=== PATIENT | male | born 1935 | race Caucasian/White ===

== ENCOUNTER 2017-07-14 15:19 | Emergency (ER) | payer MEDICARE, BC ==
[2017-07-14] MEDS ORDERED: CYCLOBENZAPRINE HCL 10 MG TABLET PO ONE (15:34)
[2017-07-14] MEDS ORDERED: MORPHINE SULFATE 10 MG/ML INJ IM ONE (15:35)
--- NOTE | 2017-07-14 15:41 | ER Document Report ---
ED General Pain - General Stated Complaint: RIGHT LEG PAIN Time Seen by Provider: 07/14/17 15:34 Mode of Arrival: Stretcher Information source: Patient TRAVEL OUTSIDE OF THE [place] IN LAST 30 DAYS: No - HPI Patient complains to provider of: right leg pain from low back to ankle Onset: Other - 2 weeks ago. Severity: Moderate Pain Level: 3 Context: New onset Associated symptoms: Muscle aches Exacerbated by: Standing, Movement, Walking Relieved by: Denies Similar symptoms previously: No Recently seen / treated by doctor: No Notes: Patient states that 2 weeks ago he started with right lower back pain that now goes down to his thigh and lower ankle area. These a few days ago he tripped and fell. And he states today he went to the door to receive a package when he turned around he missed stepped and fell. He states these are the only 2 falls he has had in the recent past. Patient states that 2 weeks ago when his back pain started he did not have any trauma to the area. He denies weakness in the leg he states it is difficult to move secondary to the pain. - Related Data Allergies/Adverse Reactions: No Known Allergies Allergy (Unverified 11/12/11 17:17) Past Medical History - General Information source: Patient, [facility] Records - Social History Smoking Status: Former Smoker Cigarette use (# per day): No Chew tobacco use (# tins/day): No Smoking Education Provided: No Frequency of alcohol use: None Drug Abuse: None Lives with: Spouse/Significant other - Has been since 1970 Family History: Reviewed & Not Pertinent Patient has suicidal ideation: No Patient has homicidal ideation: No - Past Medical History Cardiac Medical History: Reports: Hx Hypertension Pulmonary Medical History: Reports: Hx Asthma, Hx COPD Other: Oxygen dependent at home Neurological Medical History: Reports: None Endocrine Medical History: Reports: None Renal/ Medical History: Reports: None Malignancy Medical History: Reports Hx Lung Cancer - in Remission Musculoskeltal Medical History: Reports Hx Arthritis Skin Medical History: Reports None Psychiatric Medical History: Reports: None Traumatic Medical History: Reports: None - Immunizations Hx Pneumococcal Vaccination: 08/11/10 Review of Systems - Review of Systems Constitutional: No symptoms reported EENT: No symptoms reported Cardiovascular: No symptoms reported Respiratory: No symptoms reported Gastrointestinal: No symptoms reported Genitourinary: No symptoms reported Musculoskeletal: Muscle stiffness. denies: Leg swelling, Ankle swelling Skin: No symptoms reported Hematologic/Lymphatic: No symptoms reported Neurological/Psychological: No symptoms reported Physical Exam - Vital signs Vitals: Pulse Ox 92 07/14/17 15:35 - Notes Notes: PHYSICAL EXAMINATION: GENERAL: Well-appearing, well-nourished and in mild distress due to right back pain in the lower area HEAD: Atraumatic, normocephalic. EYES: Pupils equal round and reactive to light, extraocular movements intact, sclera anicteric, conjunctiva are normal. ENT: Nares patent, oropharynx clear without exudates. Moist mucous membranes. NECK: Normal range of motion, supple without lymphadenopathy LUNGS: Breath sounds clear to auscultation bilaterally and equal. No wheezes rales or rhonchi. HEART: Regular rate and rhythm ABDOMEN: Soft, nontender, nondistended abdomen. No guarding, no rebound. No masses appreciated. Musculoskeletal: Patient's right lower extremity is warm and pink. Sensation is intact. He does have positive right straight leg raise at 30. Patient does have +1 pitting edema to bilateral lower extremities. No cyanosis. NEUROLOGICAL: Cranial nerves grossly intact. Normal speech. Normal sensory, motor exams. PSYCH: Normal mood, normal affect. SKIN: Warm, Dry, normal turgor, no rashes or lesions noted. Course - Re-evaluation Re-evalutation: 07/14/17 17:51 Patient ambulatory without distress. Able to discharge. Will place patient on muscle relaxants and pain medication. - Vital Signs Vital signs: Temp Pulse Resp BP Pulse Ox 97.8 F 89 16 91/69 L 96 07/14/17 15:39 07/14/17 15:39 07/14/17 15:39 07/14/17 15:39 07/14/17 16:09 Discharge - Discharge Clinical Impression: Sciatica Condition: Stable Disposition: HOME, SELF-CARE Instructions: Sciatica ([facility]) Prescriptions: Hydrocodone/Acetaminophen [Vicodin 5-300 mg Tablet] 1 each PO Q6HP PRN #15 tablet PRN Reason: Cyclobenzaprine HCl [Flexeril 10 mg Tablet] 10 mg PO TIDP PRN #15 tab PRN Reason: Referrals: MINA FRANCO MD [Primary Care Provider] - Follow up in 3-5 days (To the emergency department immediately any concerns)
--- NOTE | 2017-07-14 16:28 | RADIOLOGY REPORT (SQ) ---
EXAM DESCRIPTION: HIP RIGHT AP/LATERAL COMPLETED DATE/TIME: 07/14/2017 4:07 pm REASON FOR STUDY: fall/pain COMPARISON: None. NUMBER OF VIEWS: Two views. TECHNIQUE: AP pelvis and additional frog-leg view of the right hip. LIMITATIONS: None. FINDINGS: MINERALIZATION: Normal. RIGHT HIP: No fracture or dislocation. No worrisome bone lesions. LEFT HIP: No fracture or dislocation. No worrisome bone lesions. PUBIS AND ISCHIUM: No fracture. PELVIS: No fracture. SACRUM: No fracture or dislocation. No worrisome bone lesions. LOWER LUMBAR SPINE: No fracture or dislocation. No worrisome bone lesions. No significant disc disea se. SOFT TISSUES: No findings. OTHER: No other significant finding. IMPRESSION: NEGATIVE STUDY OF THE RIGHT HIP. NO RADIOGRAPHIC EVIDENCE OF ACUTE INJURY. TECHNICAL DOCUMENTATION: JOB ID: [id number] [employer]- All Rights Reserved
[2017-07-14] MEDS ORDERED: HYDROCODONE/ACETAMINOPHEN 5-325 MG TABLET PO ONE (17:49)
[2017-07-14 18:14] VITALS: BP 127/95
== END 2017-07-14 18:30 | disposition home or self-care (01) ==
LOC: ER 15:19
DX: M54.30 Sciatica, unspecified side (principal); M79.604 Pain in right leg; Z87.891 Personal history of nicotine dependence; W10.9XXA Fall (on) (from) unspecified stairs and steps, initial encounter
CPT/HCPCS: 99283; 96372; 73502; A9270 ×2; J2270

== ENCOUNTER 2017-07-18 12:12 | Inpatient (IN) | payer MEDICARE, BC ==
[2017-07-18] MEDS ORDERED: NORMAL SALINE 1000 ML 500 ML IV PRN (12:36)
--- NOTE | 2017-07-18 12:43 | ER Document Report ---
ED Respiratory Problem - General Stated Complaint: DIFFICULTY BREATHING TRAVEL OUTSIDE OF THE [place] IN LAST 30 DAYS: No - HPI Notes: 81 years old male with a history of COPD, lung cancer, woke up this morning tried to get up felt dizzy and passed out. Then again when he tried he passed out again. Therefore he called EMS. EMS found him with a pulse oximeter of 80 % on 4 L. He is on oxygen at 4 L at home. Therefore he was put on BiPAP and brought him to the ED. On arrival he was alert and oriented 3. He said that he was having difficulty in breathing since this morning. Denied any chest pain. Confirm the episodes of syncope. Has no headache currently has no neck pain, denies any focal weakness numbness tingling sensation. - Related Data Allergies/Adverse Reactions: No Known Allergies Allergy (Unverified 11/12/11 17:17) Past Medical History - Social History Smoking Status: Former Smoker Family History: Reviewed & Not Pertinent - Past Medical History Cardiac Medical History: Reports: Hx Hypertension Pulmonary Medical History: Reports: Hx Asthma, Hx COPD Renal/ Medical History: Denies: Hx Peritoneal Dialysis Malignancy Medical History: Reports Hx Lung Cancer - in Remission Musculoskeltal Medical History: Reports Hx Arthritis - Immunizations Hx Pneumococcal Vaccination: 08/11/10 Review of Systems - Review of Systems Notes: REVIEW OF SYSTEMS: CONSTITUTIONAL : Denies fever, chills, or sweats. Denies recent illness. EENT: Denies eye, ear, throat, or mouth pain or symptoms. Denies nasal or sinus congestion or discharge. Denies throat, tongue, or mouth swelling or difficulty swallowing. CARDIOVASCULAR: Denies chest pain. Denies palpitations or racing or irregular heart beat. Denies ankle edema. RESPIRATORY: As per history of complaint. GASTROINTESTINAL: Denies abdominal pain or distention. Denies nausea, vomiting , or diarrhea. Denies blood in vomitus, stools, or per rectum. Denies black, tarry stools. Denies constipation. GENITOURINARY: Denies difficulty urinating, painful urination, burning, frequency, blood in urine, or discharge. MUSCULOSKELETAL: Denies back or neck pain or stiffness. Denies joint pain or swelling. SKIN: Denies rash, lesions or sores. HEMATOLOGIC : Denies easy bruising or bleeding. LYMPHATIC: Denies swollen, enlarged glands. NEUROLOGICAL: Denies confusion or altered mental status. Denies dizziness or lightheadedness. Denies headache. Denies weakness or paralysis or loss of use of either side. Denies problems with gait or speech. Denies sensory loss, numbness, or tingling. Denies seizures. PSYCHIATRIC: Denies anxiety or stress. Denies depression, suicidal ideation, or homicidal ideation. ALL OTHER SYSTEMS REVIEWED AND NEGATIVE. Dictation was performed using [employer] voice recognition software PHYSICAL EXAMINATION: GENERAL: In moderate to severe discomfort, no tenderness over the spinal processes noted, range of motion for flexion extension abduction and abduction within normal range. HEAD: Atraumatic, normocephalic. EYES: Pupils equal round and reactive to light, extraocular movements intact, sclera anicteric, conjunctiva are normal. ENT: Nares patent, oropharynx clear without exudates. Moist mucous membranes. NECK: Normal range of motion, supple without lymphadenopathy. No paraspinal muscular tenderness noted. No JVD LUNGS: Chest wall on the left side has surgical scar, bilaterally diffuse wheezing expiratory heard no rales. HEART: Regular rate and rhythm without murmurs ABDOMEN: Soft, nontender, nondistended abdomen. No guarding, no rebound. No masses appreciated. Musculoskeletal: Normal range of motion, no pitting or edema. No cyanosis. NEUROLOGICAL: Cranial nerves grossly intact. Normal speech, normal gait. Normal sensory, motor exams PSYCH: Normal mood, normal affect. SKIN: Warm, Dry, normal turgor, no rashes or lesions noted. Physical Exam - Vital signs Vitals: Pulse Ox 82 L 07/18/17 12:12 Course - Re-evaluation Re-evalutation: 07/18/17 16:41 Patient was reevaluated 1 time this case was discussed with . Currently he is being admitted by hospitalist. - Vital Signs Vital signs: Temp Pulse Resp BP Pulse Ox 20 104/86 H 99 07/18/17 14:01 07/18/17 14:01 07/18/17 14:01 - Laboratory Result Diagrams: 07/18/17 12:49 07/18/17 12:49 Laboratory results interpreted by me: 07/18/17 07/18/17 12:49 12:49 RBC 3.89 L Hgb 12.1 L Hct 35.8 L RDW 15.6 H Seg Neutrophils % 83.2 H Lymphocytes % 9.2 L Chloride 95 L Carbon Dioxide 32 H BUN 24 H Est GFR (Non-Af Amer) 56 L Glucose 118 H Direct Bilirubin 0.6 H Creatine Kinase 218 H - Diagnostic Test Radiology results interpreted by me: 07/18/17 16:03 Diagnostic report text EXAM DESCRIPTION: CHEST SINGLE VIEW COMPLETED DATE/TIME: 07/18/2017 1:28 pm REASON FOR STUDY: Shortness of breath COMPARISON: November 2011 EXAM PARAMETERS: NUMBER OF VIEWS: One view. TECHNIQUE: Single frontal radiographic view of the chest acquired. RADIATION DOSE: NA LIMITATIONS: None. FINDINGS: LUNGS AND PLEURA: Fairly extensive pleural and parenchymal changes are identified in the mid and lower left hemithorax which could represent a combination of pleural effusion and associated atelectasis/infiltrate. A component of these changes could be chronic in nature. Followup films are recommended to exclude an underlying process. Chronic appearing changes are identified on the right. The right lung is otherwise clear. I cannot exclude a component of obstructive lung disease. MEDIASTINUM AND HILAR STRUCTURES: No significant masses or adenopathy. HEART AND VASCULAR STRUCTURES: Cardiac silhouette is partially obscured due to adjacent densities. BONES: No acute findings. HARDWARE: None in the chest. OTHER: No other significant finding. IMPRESSION: Fairly extensive pleural and parenchymal changes in the mid and lower left hemithorax as noted above which could represent a combination of pleural effusion and associated atelectasis/ infiltrate. Followup films to complete clearing is recommended to exclude an underlying process. Other findings as noted above TECHNICAL DOCUMENTATION: JOB ID: [id number] [employer]- All Rights Reserved Dictated by: TODD PARRA MD - EKG Interpretation by Nh Rhythm: A.Fib - Atrial fibrillation at the rate of [address] elevation ST depression T-wave inversion noted. Critical Care Note - Critical Care Note Total time excluding time spent on procedures (mins): 60 Comments: Management of BiPAP, review of chest x-ray EKG. Discharge - Discharge Clinical Impression: COPD with exacerbation, Chronic lung disease Acute respiratory failure Qualifiers: Respiratory failure complication: hypoxia Qualified Code(s): J96.01 - Acute respiratory failure with hypoxia Condition: Poor Disposition: ADMITTED INPATIENT Admitting Provider: Hospitalist Unit Admitted: IMCU Referrals: MINA FRANCO MD [Primary Care Provider] - Follow up as needed
[2017-07-18 13:10] LABS: ABSOLUTE BASOPHILS # (AUTO) 0.1 10^3/uL (0.0-0.2); ABSOLUTE LYMPHOCYTES (AUTO) 0.9 10^3/uL (0.5-4.7); ABSOLUTE MONOCYTES (AUTO) 0.7 10^3/uL (0.1-1.4); ABSOLUTE NEUT (AUTO) 7.9 10^3/uL (1.7-8.2); BASOPHILS % (AUTO) 0.6 % (0-2); HEMATOCRIT 35.8 % (37.9-51.0); HEMOGLOBIN 12.1 g/dL (13.5-17.0); HGB HCT DIFFERENCE 0.5; LYMPHOCYTES % (AUTO) 9.2 % (13-45); MEAN CORPUSCULAR HEMOGLOBIN 31.2 pg (27.0-33.4); MEAN CORPUSCULAR HGB CONC 33.9 g/dL (32.0-36.0); MEAN CORPUSCULAR VOLUME 92 fl (80-97); RED BLOOD COUNT 3.89 10^6/uL (4.35-5.55); RED CELL DISTRIBUTION WIDTH 15.6 % (11.5-14.0); SEGMENTED NEUTROPHILS % (AUTO) 83.2 % (42-78); WHITE BLOOD COUNT 9.5 10^3/uL (4.0-10.5)
[2017-07-18] MEDS: MAGNESIUM SULFATE/D5W 1 GM/100 ML RTUPB IV SCH ×2 (13:15→14:30)
[2017-07-18] MEDS: IPRATROPIUM/ALBUTEROL 0.5-2.5 MG/3 ML AMPUL NEB SCH ×5 (13:18→20:09)
[2017-07-18 13:33] LABS: ALANINE AMINOTRANSFERASE 35 U/L (21-72); ALKALINE PHOSPHATASE 72 U/L (38-126); ANION GAP 11 (5-19); ASPARTATE AMINO TRANSFERASE 34 U/L (17-59); BILIRUBIN,DIRECT 0.6 mg/dL (0.0-0.4); BILIRUBIN,TOTAL 1.1 mg/dL (0.2-1.3); BLOOD UREA NITROGEN 24 mg/dL (7-20); CALCIUM 9.3 mg/dL (8.4-10.2); CARBON DIOXIDE 32 mmol/L (22-30); CHLORIDE 95 mmol/L (98-107); CREATINE KINASE 218 U/L (55-170); CREATININE RESULT 1.24 mg/dL (0.52-1.25); GLUCOSE 118 mg/dL (75-110); POTASSIUM 4.2 mmol/L (3.6-5.0); SODIUM 137.7 mmol/L (137-145); TOTAL PROTEIN 7.4 g/dL (6.3-8.2)
--- NOTE | 2017-07-18 13:42 | RADIOLOGY REPORT (SQ) ---
EXAM DESCRIPTION: CHEST SINGLE VIEW COMPLETED DATE/TIME: 07/18/2017 1:28 pm REASON FOR STUDY: Shortness of breath COMPARISON: November 2011 EXAM PARAMETERS: NUMBER OF VIEWS: One view. TECHNIQUE: Single frontal radiographic view of the chest acquired. RADIATION DOSE: NA LIMITATIONS: None. FINDINGS: LUNGS AND PLEURA: Fairly extensive pleural and parenchymal changes are identified in the m id and lower left hemithorax which could represent a combination of pleural effusion and associated a telectasis/infiltrate. A component of these changes could be chronic in nature. Followup films are recommended to exclude an underlying process. Chronic appearing changes are identified on the right. The right lung is otherwise clear. I cannot exclude a component of obstructive lung disease. MEDIASTINUM AND HILAR STRUCTURES: No significant masses or adenopathy. HEART AND VASCULAR STRUCTURES: Cardiac silhouette is partially obscured due to adjacent densities. BONES: No acute findings. HARDWARE: None in the chest. OTHER: No other significant finding. IMPRESSION: Fairly extensive pleural and parenchymal changes in the mid and lower left hemithorax as noted above which could represent a combination of pleural effusion and associated atelectasis/ infi ltrate. Followup films to complete clearing is recommended to exclude an underlying process. Other findings as noted above TECHNICAL DOCUMENTATION: JOB ID: [id number] [employer]- All Rights Reserved
[2017-07-18 13:43] LABS: CREATINE KINASE MB 2.85 ng/mL (<4.55); TROPONIN I 0.028 ng/mL
--- NOTE | 2017-07-18 16:39 | RADIOLOGY REPORT (SQ) ---
EXAM DESCRIPTION: CT HEAD WITHOUT COMPLETED DATE/TIME: 07/18/2017 4:23 pm REASON FOR STUDY: Syncope COMPARISON: None. TECHNIQUE: Axial images acquired through the brain without intravenous contrast. Images reviewed wi th bone, brain and subdural windows. Images stored on PACS. All CT scanners at this facility use dose modulation, iterative reconstruction, and/or weight based d osing when appropriate to reduce radiation dose to as low as reasonably achievable (ALARA). [facility]: Dose Right [facility]: CareDose [facility]: Dose Right [facility]: Teradose 4D [facility]: Smart foodpanda / hellofood RADIATION DOSE: mGy. LIMITATIONS: Study is limited somewhat due to motion artifact. FINDINGS: VENTRICLES: Prominent. CEREBRUM: No masses. No hemorrhage. No midline shift. Areas of low density in the white matter mos t likely due to chronic micro-vascular ischemic change. No evidence for acute infarction. CEREBELLUM: No masses. No hemorrhage. No alteration of density. No evidence for acute infarction. EXTRAAXIAL SPACES: Mild age-related involutional change. No fluid collections. No masses. ORBITS AND GLOBE: No intra- or extraconal masses. Normal contour of globe without masses. CALVARIUM: No fracture. PARANASAL SINUSES: No fluid or mucosal thickening. SOFT TISSUES: No mass or hematoma. OTHER: No other significant finding. IMPRESSION: MILD CHRONIC CHANGES OF ATROPHY AND MICROVASCULAR ISCHEMIA. NO ACUTE PROCESS. EVIDENCE OF ACUTE STROKE: NO. TECHNICAL DOCUMENTATION: JOB ID: [id number] Quality ID # [id number]: Final reports with documentation of one or more dose reduction techniques (e.g., Au tomated exposure control, adjustment of the mA and/or kV according to patient size, use of iterative reconstruction technique) 2010 [employer]- All Rights Reserved
[2017-07-18 16:44] LABS: ARTERIAL BLOOD BASE EXCESS 6.6 mmol/L; ARTERIAL BLOOD O2 SATURATION 99.9 % (94-98)
[2017-07-18] MEDS ORDERED: ZOLPIDEM TARTRATE 5 MG TABLET PO PRN (17:57)
[2017-07-18] MEDS ORDERED: ONDANSETRON HCL INJ/PF 4 MG/2 ML SDV IV PRN (17:57)
[2017-07-18] MEDS ORDERED: OXYCODONE-ACETAMINOPHEN 5-325 MG TABLET PO PRN (17:57)
[2017-07-18] MEDS ORDERED: MORPHINE SULFATE 10 MG/ML INJ IV STA (18:10)
[2017-07-18 18:21] LABS: APPEARANCE,URINE CLEAR; BILIRUBIN,URINE NEGATIVE (NEGATIVE); GLUCOSE, URINE NEGATIVE (NEGATIVE); KETONES,URINE NEGATIVE (NEGATIVE); LEUKOCYTE ESTERASE,URINE NEGATIVE (NEGATIVE); NITRITE,URINE NEGATIVE (NEGATIVE); PROTEIN,URINE NEGATIVE (NEGATIVE); URINE SPECIFIC GRAVITY 1.006; UROBILINOGEN,URINE NEGATIVE mg/dL (<2.0)
--- NOTE | 2017-07-18 18:36 | PDOC H&P ---
History of Present Illness Admission Date/PCP: 07/18/17 16:52 MINA FRANCO MD Patient complains of: Pased out 2 while at home today History of Present Illness: GEORGIE CLARK is a 81 year old maleArrived to ED via ambulance complaining that while at home he was found on the floor. He denies having any similar episode in the past. He is unaware what happened. Patient does complain of shortness of breath. He admits having a history of COPD and he uses 4 L of oxygen on a regular basis. Patient states that he was recently discharged from this facility when he was admitted because of back pain problems. He states that he does have a history of what appears to be atrial fibrillation. He is unable to tell if he is on any blood thinner. He denies history of heart attack or stroke. He quitted smoking 5 years ago. Patient denies fever, chills, cough, chest pain or leg swelling. Is my understanding that upen arrival to emergency room patient was saturating at 80% on 4 L of O2. Due to presentation our service was contacted and prompted to admit for further evaluation. Past Medical History Cardiac Medical History: Reports: Atrial Fibrillation, Hypertension Denies: Congestive Heart Failure, Coronary Artery Disease, Myocardial Infarction Pulmonary Medical History: Reports: Asthma, Chronic Obstructive Pulmonary Disease (COPD) EENT Medical History: Reports: None Neurological Medical History: Reports: None Endocrine Medical History: Reports: None Renal/ Medical History: Reports: None Malignancy Medical History: Reports: None, Lung Cancer - in Remission GI Medical History: Reports: None Musculoskeltal Medical History: Reports: Arthritis Skin Medical History: Reports: None Psychiatric Medical History: Reports: None Traumatic Medical History: Reports: None Hematology: Reports: None Infectious Medical History: Reports: None Social History Information Source: Patient Smoking Status: Former Smoker Frequency of Alcohol Use: None Hx Recreational Drug Use: No Drugs: None Hx Prescription Drug Abuse: No - Advance Directive Resuscitation Status: Do Not Resuscitate Family History Family History: Reviewed & Not Pertinent Parental Family History Reviewed: Yes Children Family History Reviewed: Yes Sibling(s) Family History Reviewed.: Yes Medication/Allergy Allergies/Adverse Reactions: No Known Allergies Allergy (Unverified 11/12/11 17:17) Review of Systems Constitutional: ABSENT: chills, fever(s), night sweats, weakness Eyes: ABSENT: visual disturbances Ears: ABSENT: hearing changes Nose, Mouth, and Throat: ABSENT: mouth pain, sore throat Cardiovascular: ABSENT: chest pain, edema Respiratory: PRESENT: dyspnea. ABSENT: cough Gastrointestinal: ABSENT: abdominal pain, nausea, vomiting Neurological: ABSENT: focal weakness, frequent falls Physical Exam Vital Signs: Temp Pulse Resp BP Pulse Ox 22 H 103/80 98 07/18/17 17:41 07/18/17 17:41 07/18/17 17:41 General appearance: PRESENT: mild distress, morbidly obese Head exam: PRESENT: atraumatic, normocephalic Eye exam: PRESENT: conjunctiva pink, EOMI, PERRLA Ear exam: PRESENT: normal external ear exam, TM's normal bilaterally Mouth exam: PRESENT: moist, neck supple Neck exam: PRESENT: full ROM. ABSENT: JVD, tenderness Respiratory exam: PRESENT: decreased breath sounds. ABSENT: chest wall tenderness Cardiovascular exam: PRESENT: irregular rhythm. ABSENT: diastolic murmur, systolic murmur Vascular exam: PRESENT: normal capillary refill GI/Abdominal exam: PRESENT: normal bowel sounds. ABSENT: guarding, soft, tenderness Extremities exam: ABSENT: tenderness Musculoskeletal exam: PRESENT: full ROM Neurological exam: PRESENT: alert, awake, oriented to person, oriented to place , oriented to time Psychiatric exam: PRESENT: appropriate affect, normal mood Skin exam: PRESENT: dry, normal color Results Impressions: Chest X-Ray 07/18/17 12:34 IMPRESSION: Fairly extensive pleural and parenchymal changes in the mid and lower left hemithorax as noted above which could represent a combination of pleural effusion and associated atelectasis/ infiltrate. Followup films to complete clearing is recommended to exclude an underlying process. Other findings as noted above Head CT 07/18/17 12:36 IMPRESSION: MILD CHRONIC CHANGES OF ATROPHY AND MICROVASCULAR ISCHEMIA. NO ACUTE PROCESS. EVIDENCE OF ACUTE STROKE: NO. Assessment & Plan - Diagnosis (1) Acute on chronic respiratory failure with hypoxia and hypercapnia Is this a current diagnosis for this admission?: Yes Plan: Differential includes congestive heart failure and pulmonary embolism. Uncertain if patient is on any anticoagulation. Scanned medication reconciliation list in [facility] does not show any anticoagulants. To order a stat CTA of chest to evaluate for pulmonary embolism. Was tempted to start patient on Eliquis but since hemoglobin slightly on the low side and part of the differential of syncope may be bleeding will hold off. To sign off tonight hospitalist. Also will order BNP and will treat with Lasix and morphine IV. Patient will be placed on BiPAP as needed (2) COPD with exacerbation Is this a current diagnosis for this admission?: Yes Plan: Will place on nebulizers and Pulmicort. (3) Atrial fibrillation Qualifiers: Atrial fibrillation type: permanent Qualified Code(s): I48.2 - Chronic atrial fibrillation Is this a current diagnosis for this admission?: Yes Plan: For now is stable that since will be getting nebulizer treatment there is the possibility that may call into rapid ventricular response. Anticipate to continue outpatient regimen however is not available at the time of dictation (4) Morbid obesity Is this a current diagnosis for this admission?: Yes Plan: Can contribute to worsening of COPD (5) Syncope Qualifiers: Syncope type: unspecified Qualified Code(s): R55 - Syncope and collapse (6) Syncope and collapse Is this a current diagnosis for this admission?: Yes Plan: May be precipitated by acute oxygen drop. Major concern is as of the nature of acute drop in. Patient will be admitted to telemetry unit, will monitor troponin and will evaluate for acute hypoxic episode
[2017-07-18] MEDS ORDERED: METHYLPREDNISOLONE INJ 40 MG/1 ML SDV IV ONE (19:00)
[2017-07-18] MEDS ORDERED: APIXABAN 5 MG TABLET PO ONE (19:00)
[2017-07-18] MEDS ORDERED: FUROSEMIDE INJ/PF 20 MG/2 ML SDV IV ONE (19:00)
[2017-07-18] MEDS ORDERED: DEXTROSE 5%-WATER 250 ML with NOREPINEPHRINE BITARTRATE 4 MG IV PRN ×2 (19:24)
[2017-07-18] MEDS ORDERED: NALOXONE HCL INJ/PF 0.4 MG/1 ML SDV IV ONE (19:26)
[2017-07-18] MEDS ORDERED: NORMAL SALINE 1000 ML 1,000 ML IV SCH (19:30)
[2017-07-18] MEDS ORDERED: NOREPINEPHRINE BITARTRATE INJ/PF 4 MG/4 ML SDV IV ONE (19:39)
[2017-07-18] MEDS: NORMAL SALINE 1000 ML 1,000 ML IV PRN ×2 (20:12→21:57)
[2017-07-18] MEDS ORDERED: HYDROCORTISONE SOD SUCCINATE INJ/PF 100 MG/2 ML SDV IV ONE (20:30)
--- NOTE | 2017-07-18 21:34 | EKG REPORT ---
SEVERITY:- ABNORMAL ECG - ATRIAL FIBRILLATION VENTRICULAR PREMATURE COMPLEX BORDERLINE IVCD WITH LAD LOW VOLTAGE IN FRONTAL LEADS NONSPECIFIC T ABNORMALITIES, LATERAL LEADS BORDERLINE PROLONGED QT INTERVAL : Confirmed by: Courtney Mullen 18-Jul-2017 21:34:05
--- NOTE | 2017-07-18 21:55 | RADIOLOGY REPORT (SQ) ---
EXAM DESCRIPTION: CTA CHEST COMPLETED DATE/TIME: 07/18/2017 9:41 pm REASON FOR STUDY: syncope/acute on chronic respiratory failure COMPARISON: Chest radiograph TECHNIQUE: CT scan of the chest performed using helical scanning technique with dynamic intravenous contrast injection. Images reviewed with lung, soft tissue and bone windows. Reconstructed coronal and sagittal MPR images reviewed. Additional 3 dimensional post-processing performed to develop Maximal Intensity Projection images (ID P). All images stored on PACS. All CT scanners at this facility use dose modulation, iterative reconstruction, and/or weight based d osing when appropriate to reduce radiation dose to as low as reasonably achievable (ALARA). [facility]: Dose Right [facility]: CareDose [facility]: Dose Right [facility]: Teradose 4D [facility]: 8digits CONTRAST TYPE AND DOSE: contrast/concentration: Isovue 370.00 mg/ml; Total Contrast Delivered: 82.0 ml; Total Saline Delivered: 110.1 ml Contrast bolus optimized for the pulmonary arteries. Not diagnostic for the aorta. RENAL FUNCTION: Creatinine 1.24 RADIATION DOSE: . LIMITATIONS: None. FINDINGS: LUNGS AND PLEURA: Diffuse interstitial changes through the lungs with lung Sabiha distribut ion. Extensive pleural calcification. Pleural-based density along the left chest wall. No pneumoth orax. AORTA AND GREAT VESSELS: No aneurysm. Contrast bolus not optimized for the aorta. HEART: No pericardial effusion. No significant coronary artery calcifications. PULMONARY ARTERIES: No emboli visualized in the main pulmonary arteries or the segmental branches. HILAR AND MEDIASTINAL STRUCTURES: No identified masses or abnormal nodes. HARDWARE: None in the chest. UPPER ABDOMEN: Gallstones. THYROID AND OTHER SOFT TISSUES: No masses. No adenopathy. BONES: No acute or significant finding. 3D MIPS: Confirm above findings. OTHER: No other significant finding. IMPRESSION: No pulmonary emboli. Asbestos exposure with extensive pleural calcification. Interstitial changes suggest interstitial pulmonary edema. Pleural-based density on the left may be associated with the underlying asbestosis. COMMENT: Quality ID # [id number]: Final reports with documentation of one or more dose reduction techniques (e.g., Automated exposure control, adjustment of the mA and/or kV according to patient size, use of iterative reconstruction technique) TECHNICAL DOCUMENTATION: JOB ID: [id number] [employer]- All Rights Reserved
[2017-07-19] MEDS: IPRATROPIUM/ALBUTEROL 0.5-2.5 MG/3 ML AMPUL NEB SCH ×4 (00:28→20:55)
[2017-07-19] MEDS: METHYLPREDNISOLONE INJ 40 MG/1 ML SDV IV SCH ×3 (02:52→18:08)
--- NOTE | 2017-07-19 08:01 | PDOC PROGRESS REPORT ---
Subjective Progress Note for:: 07/19/17 Subjective:: Patient refers that his breathing is better today. He admits having a history of asbestosis and has been seeing Dr. Adis JOSE All organ systems evaluated and negative except as in subjective All significant laboratories and diagnostics have been reviewed Reason For Visit: ACUTE ON CHRONIC RESPIRATORY FAILURE,AECOPD Physical Exam Vital Signs: Temp Pulse Resp BP Pulse Ox 97.5 F 82 21 H 119/90 H 98 07/19/17 05:56 07/19/17 01:00 07/19/17 02:24 07/19/17 02:24 07/19/17 02:24 Intake & Output 07/17/17 07/18/17 07/19/17 06:59 06:59 06:59 Output Total 775 Balance -775 Weight 105.6 kg General appearance: PRESENT: no acute distress, cooperative, morbidly obese Head exam: PRESENT: atraumatic, normocephalic Eye exam: PRESENT: EOMI, PERRLA Ear exam: PRESENT: normal external ear exam Mouth exam: PRESENT: moist Neck exam: PRESENT: full ROM. ABSENT: JVD, tenderness Respiratory exam: PRESENT: clear to auscultation susan Cardiovascular exam: PRESENT: irregular rhythm. ABSENT: diastolic murmur, systolic murmur Vascular exam: PRESENT: normal capillary refill GI/Abdominal exam: PRESENT: normal bowel sounds, soft. ABSENT: ascites, guarding, tenderness Extremities exam: ABSENT: joint swelling, pedal edema Musculoskeletal exam: PRESENT: ambulatory, full ROM Neurological exam: PRESENT: alert, oriented to person, oriented to place, oriented to time Skin exam: PRESENT: normal color Results Laboratory Results: 07/18/17 17:30 Urine Color YELLOW Urine Appearance CLEAR Urine pH 6.0 Ur Specific [place] 1.006 Urine Protein NEGATIVE Urine Glucose (UA) NEGATIVE Urine Ketones NEGATIVE Urine Blood NEGATIVE Urine Nitrite NEGATIVE Ur Leukocyte Esterase NEGATIVE Urine WBC (Auto) 1 Urine RBC (Auto) 1 07/18/17 07/18/17 07/18/17 19:20 19:20 19:20 Creatine Kinase 226 H Troponin I 0.019 NT-Pro-B Natriuret Pep 1130 H 07/19/17 07/19/17 01:25 01:25 Creatine Kinase 220 H Troponin I 0.013 NT-Pro-B Natriuret Pep Impressions: Chest/Abdomen CTA 07/18/17 00:00 IMPRESSION: No pulmonary emboli. Asbestos exposure with extensive pleural calcification. Interstitial changes suggest interstitial pulmonary edema. Pleural-based density on the left may be associated with the underlying asbestosis. Chest X-Ray 07/18/17 12:34 IMPRESSION: Fairly extensive pleural and parenchymal changes in the mid and lower left hemithorax as noted above which could represent a combination of pleural effusion and associated atelectasis/ infiltrate. Followup films to complete clearing is recommended to exclude an underlying process. Other findings as noted above Head CT 07/18/17 12:36 IMPRESSION: MILD CHRONIC CHANGES OF ATROPHY AND MICROVASCULAR ISCHEMIA. NO ACUTE PROCESS. EVIDENCE OF ACUTE STROKE: NO. Assessment & Plan - Diagnosis (1) Acute on chronic respiratory failure with hypoxia and hypercapnia Is this a current diagnosis for this admission?: Yes Plan: CTA of chest results noted. Patient made aware that because of his lung condition that is asbestosis he may have problems with lowoxygen COPD. Will continue BiPAP as needed (2) COPD with exacerbation Is this a current diagnosis for this admission?: Yes Plan: Continue Solu-Medrol IV, add Advair and continue duo nebs. Add Levaquin to his regimen (3) Atrial fibrillation Qualifiers: Atrial fibrillation type: permanent Qualified Code(s): I48.2 - Chronic atrial fibrillation Is this a current diagnosis for this admission?: Yes Plan: Stable and to reassume Eliquis as outpatient (4) Morbid obesity Is this a current diagnosis for this admission?: Yes Plan: Can contribute to worsening of COPD (5) Syncope and collapse Is this a current diagnosis for this admission?: Yes Plan: Likely due to sudden drop of oxygen. No evidence of heart attack (6) Pulmonary asbestosis Is this a current diagnosis for this admission?: Yes Plan: Contributing to presentation. Highly suspect that this patient also has an element of pulmonary hypertension. Will order echocardiogram (7) Hypotension Qualifiers: Hypotension type: unspecified hypotension type Qualified Code(s): I95.9 - Hypotension, unspecified Is this a current diagnosis for this admission?: Yes Plan: Suspect the patient does have pulmonary hypertension therefore being very fluid sensitive. When checking medication reconciliation list he is on Lasix as outpatient. Will reassume Lasix outpatient dose and will discontinue above and draped since stable - Time Time Spent with patient: 15-24 minutes Medications reviewed and adjusted accordingly: Yes Anticipated discharge: Home - Inpatient Certification Based on my medical assessment, after consideration of the patient's comorbidities, presenting symptoms, or acuity I expect that the services needed warrant INPATIENT care.: Yes I certify that my determination is in accordance with my understanding of Medicare's requirements for reasonable and necessary INPATIENT services [42 CFR 412.3e].: Yes Medical Necessity: Need Close Monitoring Due to Risk of Patient Decompensation
[2017-07-19 08:14] LABS: HEMATOCRIT 35.1 % (37.9-51.0); HEMOGLOBIN 11.7 g/dL (13.5-17.0); MEAN CORPUSCULAR HEMOGLOBIN 30.9 pg (27.0-33.4); MEAN CORPUSCULAR HGB CONC 33.2 g/dL (32.0-36.0); MEAN CORPUSCULAR VOLUME 93 fl (80-97); RED BLOOD COUNT 3.77 10^6/uL (4.35-5.55); RED CELL DISTRIBUTION WIDTH 15.7 % (11.5-14.0); WHITE BLOOD COUNT 9.7 10^3/uL (4.0-10.5)
[2017-07-19 08:31] LABS: ANION GAP 10 (5-19); BLOOD UREA NITROGEN 23 mg/dL (7-20); CALCIUM 8.7 mg/dL (8.4-10.2); CARBON DIOXIDE 28 mmol/L (22-30); CHLORIDE 101 mmol/L (98-107); CREATINE KINASE 205 U/L (55-170); CREATININE RESULT 1.02 mg/dL (0.52-1.25); GLUCOSE 140 mg/dL (75-110); MAGNESIUM 2.3 mg/dL (1.6-2.3); SODIUM 139.2 mmol/L (137-145)
[2017-07-19 08:53] LABS: BAND NEUTROPHILS % (MANUAL) 15 % (3-5); BASOPHILS % (MANUAL) 0 % (0-2); EOSINOPHILS % (MANUAL) 0 % (0-6); LYMPHOCYTES % (MANUAL) 2 % (13-45); TOTAL CELLS COUNTED 100
[2017-07-19 08:54] LABS: RBC MORPHOLOGY COMMENT NORMO-CYTIC/CHROMIC
[2017-07-19] MEDS: LEVOFLOXACIN 750 MG TABLET PO SCH (08:59)
[2017-07-19] MEDS: FUROSEMIDE 40 MG TABLET PO SCH (08:59)
[2017-07-19] MEDS: DOCUSATE SODIUM 100 MG CAPSULE PO SCH (09:01)
[2017-07-19] MEDS ORDERED: FLUTICASONE/SALMETEROL DISKUS 500-50 MCG/DOSE IH SCH (10:00)
[2017-07-19] MEDS: APIXABAN 5 MG TABLET PO SCH ×2 (10:44→18:12)
[2017-07-19] MEDS: LEFLUNOMIDE 20 MG TABLET PO SCH (10:46)
[2017-07-19] MEDS: NORMAL SALINE 1000 ML 1,000 ML IV PRN (12:42)
[2017-07-19] MEDS ORDERED: AMIODARONE HCL 200 MG TABLET PO ONE (17:30)
[2017-07-19] MEDS ORDERED: (PENDING PHARMACY ID) (Potassium Chloride [Klor-Con M10] 10 MEQ) PO SCH (18:00)
[2017-07-19] MEDS ORDERED: (PENDING PHARMACY ID) (Omega-3 Fatty Acids/Fish Oil [Fish Oil 1,000 Mg Capsule] 1 EACH) PO SCH (18:00)
[2017-07-19] MEDS: POTASSIUM CHLORIDE 10 MEQ TABLET.SA PO SCH (18:07)
[2017-07-19] MEDS: GUAIFENESIN 600 MG TABLET.SA PO SCH (18:07)
[2017-07-19] MEDS: OMEGA-3 ACID ETHYL ESTERS 1 GM CAPSULE PO SCH (18:08)
[2017-07-20] MEDS: METHYLPREDNISOLONE INJ 40 MG/1 ML SDV IV SCH ×3 (02:46→17:27)
[2017-07-20] MEDS: ALBUTEROL SULFATE 0.083% NEB 2.5 MG/3 ML AMPUL NEB PRN (02:53)
[2017-07-20] MEDS: MORPHINE SULFATE 10 MG/ML INJ IV PRN ×2 (03:36→21:10)
[2017-07-20] MEDS: NORMAL SALINE 1000 ML 1,000 ML IV PRN (03:37)
[2017-07-20] MEDS: LANSOPRAZOLE 15 MG TAB.RAP.DR PO SCH (05:39)
[2017-07-20] MEDS: IPRATROPIUM/ALBUTEROL 0.5-2.5 MG/3 ML AMPUL NEB SCH ×3 (07:57→20:58)
[2017-07-20] MEDS ORDERED: GLUCAGON,HUMAN RECOMB 1 MG INJ IM PRN (08:14)
[2017-07-20] MEDS ORDERED: INSULIN LISPRO 100 UNIT/ML 3 ML VIAL SUBCUT PRN (08:14)
[2017-07-20] MEDS ORDERED: DEXTROSE 50%-WATER 25 GM/50 ML DISP.SYRIN IV PRN ×2 (08:14)
[2017-07-20] MEDS ORDERED: DEXTROSE 40% GEL 15 GM TUBE PO PRN ×2 (08:14)
--- NOTE | 2017-07-20 08:14 | PDOC PROGRESS REPORT ---
Subjective Progress Note for:: 07/20/17 Subjective:: Complains of swelling of both of his hands. Breathing is better but still feels congested. Complains of constipation ROS All organ systems evaluated and negative except as in subjective All significant laboratories and diagnostics had been reviewed Reason For Visit: ACUTE ON CHRONIC RESPIRATORY FAILURE,AECOPD Physical Exam Vital Signs: Temp Pulse Resp BP Pulse Ox 97.1 F 95 20 110/86 H 94 07/20/17 04:03 07/20/17 04:03 07/20/17 06:00 07/20/17 04:03 07/20/17 04:03 Intake & Output 07/19/17 07/20/17 07/21/17 06:59 06:59 06:59 Intake Total 575 2398 Output Total 775 1025 Balance -200 1373 Weight 105.6 kg 111.5 kg General appearance: PRESENT: no acute distress, cooperative, morbidly obese Head exam: PRESENT: atraumatic, normocephalic Eye exam: PRESENT: EOMI, PERRLA Ear exam: PRESENT: normal external ear exam Mouth exam: PRESENT: moist, neck supple Neck exam: PRESENT: full ROM. ABSENT: JVD, tenderness Respiratory exam: PRESENT: crackles, decreased breath sounds Cardiovascular exam: PRESENT: irregular rhythm. ABSENT: diastolic murmur, systolic murmur Vascular exam: PRESENT: normal capillary refill GI/Abdominal exam: PRESENT: distended, soft, tenderness Extremities exam: PRESENT: full ROM, +1 edema Neurological exam: PRESENT: alert, awake, oriented to person, oriented to place , oriented to time, CN II-XII grossly intact Psychiatric exam: PRESENT: appropriate affect, normal mood Skin exam: PRESENT: normal color Results Laboratory Results: 07/19/17 08:00 07/19/17 08:00 07/19/17 07/19/17 08:00 08:00 WBC 9.7 RBC 3.77 L Hgb 11.7 L Hct 35.1 L MCV 93 MCH 30.9 MCHC 33.2 RDW 15.7 H Plt Count 162 Seg Neutrophils % Not Reportable Lymphocytes % Not Reportable Monocytes % Not Reportable Eosinophils % Not Reportable Basophils % Not Reportable Absolute Neutrophils Not Reportable Absolute Lymphocytes Not Reportable Absolute Monocytes Not Reportable Absolute Eosinophils Not Reportable Absolute Basophils Not Reportable Sodium 139.2 Potassium 4.0 Chloride 101 Carbon Dioxide 28 Anion Gap 10 BUN 23 H Creatinine 1.02 Est GFR ( Amer) > 60 Est GFR (Non-Af Amer) > 60 Glucose 140 H Calcium 8.7 Magnesium 2.3 07/18/17 07/18/17 07/18/17 19:20 19:20 19:20 Creatine Kinase 226 H Troponin I 0.019 NT-Pro-B Natriuret Pep 1130 H 07/19/17 07/19/17 07/19/17 01:25 01:25 08:00 Creatine Kinase 220 H 205 H Troponin I 0.013 NT-Pro-B Natriuret Pep 07/19/17 08:00 Creatine Kinase Troponin I 0.017 NT-Pro-B Natriuret Pep Impressions: Chest/Abdomen CTA 07/18/17 00:00 IMPRESSION: No pulmonary emboli. Asbestos exposure with extensive pleural calcification. Interstitial changes suggest interstitial pulmonary edema. Pleural-based density on the left may be associated with the underlying asbestosis. Chest X-Ray 07/18/17 12:34 IMPRESSION: Fairly extensive pleural and parenchymal changes in the mid and lower left hemithorax as noted above which could represent a combination of pleural effusion and associated atelectasis/ infiltrate. Followup films to complete clearing is recommended to exclude an underlying process. Other findings as noted above Head CT 07/18/17 12:36 IMPRESSION: MILD CHRONIC CHANGES OF ATROPHY AND MICROVASCULAR ISCHEMIA. NO ACUTE PROCESS. EVIDENCE OF ACUTE STROKE: NO. Assessment & Plan - Diagnosis (1) Acute on chronic respiratory failure with hypoxia and hypercapnia Is this a current diagnosis for this admission?: Yes Plan: CTA of chest results noted. Improving. Respiratory made aware Bipap is at night. (2) COPD with exacerbation Is this a current diagnosis for this admission?: Yes Plan: Add mucomyst and daliresp otherwise continue current treatment (3) Atrial fibrillation Qualifiers: Atrial fibrillation type: permanent Qualified Code(s): I48.2 - Chronic atrial fibrillation Is this a current diagnosis for this admission?: Yes Plan: Stable. Continue outpatient treatment. (4) Morbid obesity Is this a current diagnosis for this admission?: Yes Plan: Can contribute to worsening of COPD (5) Syncope and collapse Is this a current diagnosis for this admission?: Yes Plan: Likely due to sudden drop of oxygen. (6) Pulmonary asbestosis Is this a current diagnosis for this admission?: Yes Plan: Contributing to presentation. Highly suspect that this patient also has an element of pulmonary hypertension. Echocardiogram ordered (7) Hypotension Qualifiers: Hypotension type: unspecified hypotension type Qualified Code(s): I95.9 - Hypotension, unspecified Is this a current diagnosis for this admission?: Yes Plan: Resolved. Suspect the patient does have pulmonary hypertension therefore being very fluid sensitive. Discontinue maintenance IV fluids. Follow up swelling of hands. (8) Constipation Qualifiers: Constipation type: unspecified constipation type Qualified Code(s): K59.00 - Constipation, unspecified Is this a current diagnosis for this admission?: Yes Plan: Lactulose x 1 and add miralax to bowel regimen. (9) Anemia Qualifiers: Anemia type: unspecified type Qualified Code(s): D64.9 - Anemia, unspecified Is this a current diagnosis for this admission?: Yes Plan: Likley of chronic disease. To trend (10) Hyperglycemia Is this a current diagnosis for this admission?: Yes Plan: Probably steroid induced. Check A1C. Add sliding scale - Time Time Spent with patient: 15-24 minutes Medications reviewed and adjusted accordingly: Yes Anticipated discharge: Home Within: within 72 hours - Inpatient Certification Based on my medical assessment, after consideration of the patient's comorbidities, presenting symptoms, or acuity I expect that the services needed warrant INPATIENT care.: Yes I certify that my determination is in accordance with my understanding of Medicare's requirements for reasonable and necessary INPATIENT services [42 CFR 412.3e].: Yes Medical Necessity: Need Close Monitoring Due to Risk of Patient Decompensation, Need for Nebulizer Therapy and Monitoring of Response
[2017-07-20] MEDS: FUROSEMIDE 40 MG TABLET PO SCH (08:38)
[2017-07-20] MEDS ORDERED: ACETYLCYSTEINE 10% NEB 400 MG/4 ML VIAL NEB ONE (09:00)
[2017-07-20] MEDS ORDERED: LACTULOSE SYRUP 20 GM/30 ML UDCUP PO ONE (09:00)
[2017-07-20] MEDS ORDERED: (PENDING PHARMACY ID) (Calcium Carbonate/Vitamin D3 [Os-Cal 500-Vit D3 200 Caplet] 1 TAB) PO SCH (10:00)
[2017-07-20] MEDS ORDERED: (PENDING PHARMACY ID) (Multivit-Min/Iron Fum/Folic Ac [Multi-Vitamin-Minerals Tablet] 1 EA PO SCH (10:00)
[2017-07-20] MEDS: POLYETHYLENE GLYCOL 3350 POWDER 17 GM/1 PACKET PO SCH (10:45)
[2017-07-20] MEDS: CALCIUM CARBONATE 250 MG/VITAMIN D3 125 UNIT TABLET PO SCH (10:47)
[2017-07-20] MEDS: OMEGA-3 ACID ETHYL ESTERS 1 GM CAPSULE PO SCH ×2 (10:47→17:26)
[2017-07-20] MEDS: CHOLECALCIFEROL (D3) 1,000 UNIT TABLET PO SCH (10:47)
[2017-07-20] MEDS: LEVOFLOXACIN 750 MG TABLET PO SCH (10:48)
[2017-07-20] MEDS: GUAIFENESIN 600 MG TABLET.SA PO SCH ×2 (10:48→17:26)
[2017-07-20] MEDS: DOCUSATE SODIUM 100 MG CAPSULE PO SCH (10:49)
[2017-07-20] MEDS: AMIODARONE HCL 200 MG TABLET PO SCH (10:49)
[2017-07-20] MEDS: POTASSIUM CHLORIDE 10 MEQ TABLET.SA PO SCH ×2 (10:49→17:26)
[2017-07-20] MEDS: LEFLUNOMIDE 20 MG TABLET PO SCH (10:50)
[2017-07-20] MEDS: MULTIVIT-STRESS FORMULA/ZINC TABLET PO SCH (10:50)
[2017-07-20] MEDS: ROFLUMILAST 500 MCG TABLET PO SCH (10:50)
[2017-07-20] MEDS: APIXABAN 5 MG TABLET PO SCH ×2 (10:51→17:27)
[2017-07-20] MEDS: TIOTROPIUM BROMIDE DPI 5 CAP/KIT (18 MCG/CAP) IH SCH (10:55)
[2017-07-20] MEDS: BUDESONIDE/FORMOTEROL 160-4.5 MCG 60 PUFF/6 GM MDI IH SCH (10:56)
[2017-07-20] MEDS: TAMSULOSIN HCL 0.4 MG CAP.SR.24H PO SCH (10:58)
[2017-07-20] MEDS: ACETYLCYSTEINE 10% NEB 400 MG/4 ML VIAL NEB SCH ×2 (13:53→20:58)
[2017-07-21] MEDS: ACETYLCYSTEINE 10% NEB 400 MG/4 ML VIAL NEB SCH ×4 (02:23→20:36)
[2017-07-21] MEDS: ALBUTEROL SULFATE 0.083% NEB 2.5 MG/3 ML AMPUL NEB PRN (02:23)
[2017-07-21] MEDS: METHYLPREDNISOLONE INJ 40 MG/1 ML SDV IV SCH ×3 (02:30→21:21)
[2017-07-21 05:32] LABS: HEMATOCRIT 34.5 % (37.9-51.0); HEMOGLOBIN 11.5 g/dL (13.5-17.0); MEAN CORPUSCULAR HEMOGLOBIN 31.2 pg (27.0-33.4); MEAN CORPUSCULAR HGB CONC 33.4 g/dL (32.0-36.0); MEAN CORPUSCULAR VOLUME 93 fl (80-97); WHITE BLOOD COUNT 10.6 10^3/uL (4.0-10.5)
[2017-07-21 05:47] LABS: ALANINE AMINOTRANSFERASE 42 U/L (21-72); ALBUMIN 3.3 g/dL (3.5-5.0); ALKALINE PHOSPHATASE 61 U/L (38-126); ANION GAP 5 (5-19); ASPARTATE AMINO TRANSFERASE 28 U/L (17-59); BILIRUBIN,DIRECT 0.5 mg/dL (0.0-0.4); BILIRUBIN,TOTAL 0.6 mg/dL (0.2-1.3); BLOOD UREA NITROGEN 29 mg/dL (7-20); CALCIUM 8.6 mg/dL (8.4-10.2); CARBON DIOXIDE 31 mmol/L (22-30); CHLORIDE 105 mmol/L (98-107); CREATININE RESULT 1.05 mg/dL (0.52-1.25); GLUCOSE 119 mg/dL (75-110); MAGNESIUM 2.3 mg/dL (1.6-2.3); POTASSIUM 4.2 mmol/L (3.6-5.0); SODIUM 140.9 mmol/L (137-145); TOTAL PROTEIN 5.9 g/dL (6.3-8.2)
[2017-07-21 06:05] LABS: BAND NEUTROPHILS % (MANUAL) 1 % (3-5); BASOPHILS % (MANUAL) 0 % (0-2); EOSINOPHILS % (MANUAL) 0 % (0-6); LYMPHOCYTES % (MANUAL) 3 % (13-45); TOTAL CELLS COUNTED 100
[2017-07-21] MEDS: LANSOPRAZOLE 15 MG TAB.RAP.DR PO SCH (06:05)
[2017-07-21 06:06] LABS: ANISOCYTOSIS 1+; POLYCHROMASIA SLIGHT
[2017-07-21 06:07] LABS: OVALOCYTES SLIGHT
[2017-07-21] MEDS: IPRATROPIUM/ALBUTEROL 0.5-2.5 MG/3 ML AMPUL NEB SCH ×3 (08:27→20:37)
[2017-07-21] MEDS: FUROSEMIDE 40 MG TABLET PO SCH (08:38)
[2017-07-21] MEDS: CALCIUM CARBONATE 250 MG/VITAMIN D3 125 UNIT TABLET PO SCH (09:41)
[2017-07-21] MEDS: LEFLUNOMIDE 20 MG TABLET PO SCH (09:41)
[2017-07-21] MEDS: MULTIVIT-STRESS FORMULA/ZINC TABLET PO SCH (09:41)
[2017-07-21] MEDS: OMEGA-3 ACID ETHYL ESTERS 1 GM CAPSULE PO SCH ×2 (09:41→17:33)
[2017-07-21] MEDS: ROFLUMILAST 500 MCG TABLET PO SCH (09:41)
[2017-07-21] MEDS: POLYETHYLENE GLYCOL 3350 POWDER 17 GM/1 PACKET PO SCH (09:41)
[2017-07-21] MEDS: POTASSIUM CHLORIDE 10 MEQ TABLET.SA PO SCH ×2 (09:41→17:33)
[2017-07-21] MEDS: LEVOFLOXACIN 750 MG TABLET PO SCH (09:41)
[2017-07-21] MEDS: CHOLECALCIFEROL (D3) 1,000 UNIT TABLET PO SCH (09:42)
[2017-07-21] MEDS: GUAIFENESIN 600 MG TABLET.SA PO SCH ×2 (09:42→21:22)
[2017-07-21] MEDS: DOCUSATE SODIUM 100 MG CAPSULE PO SCH (09:42)
[2017-07-21] MEDS: AMIODARONE HCL 200 MG TABLET PO SCH (09:42)
[2017-07-21] MEDS: TAMSULOSIN HCL 0.4 MG CAP.SR.24H PO SCH (09:42)
[2017-07-21] MEDS: BUDESONIDE/FORMOTEROL 160-4.5 MCG 60 PUFF/6 GM MDI IH SCH (09:43)
[2017-07-21] MEDS: MORPHINE SULFATE 10 MG/ML INJ IV PRN (09:43)
[2017-07-21] MEDS: APIXABAN 5 MG TABLET PO SCH ×2 (09:44→17:34)
[2017-07-21] MEDS: TIOTROPIUM BROMIDE DPI 5 CAP/KIT (18 MCG/CAP) IH SCH (09:44)
[2017-07-21] MEDS ORDERED: MEROPENEM 500 MG VIAL IV SCH (11:30)
[2017-07-21] MEDS ORDERED: DILTIAZEM HCL/D5W 125 MG/125 ML RTUINJ IV ONE (12:19)
[2017-07-21] MEDS ORDERED: DIGOXIN INJ 0.5 MG/2 ML AMPULE IV ONE (12:30)
[2017-07-21 12:31] LABS: PATH REVIEW PATHOLOGIST REVIEWED
--- NOTE | 2017-07-21 12:40 | PDOC PROGRESS REPORT ---
Subjective Progress Note for:: 07/21/17 Subjective:: Patient relates that constipation is resolved. Also swelling of his hands is improved. He has been having productive cough and showed a sample of the phlegm. He is also concerned that he is still having to use 6 L of oxygen by nasal cannula. ROS All organ systems evaluated and negative except as in subjective All significant laboratories and diagnostics had been reviewed Reason For Visit: ACUTE ON CHRONIC RESPIRATORY FAILURE,AECOPD Physical Exam Vital Signs: Temp Pulse Resp BP Pulse Ox 96.6 F L 96 17 97/67 L 96 07/21/17 04:00 07/21/17 04:00 07/21/17 04:21 07/21/17 04:21 07/21/17 04:18 Intake & Output 07/20/17 07/21/17 07/22/17 06:59 06:59 06:59 Intake Total 2398 880 Output Total 1025 850 Balance 1373 30 Weight 111.5 kg 108.7 kg General appearance: PRESENT: no acute distress, cooperative, obese Head exam: PRESENT: atraumatic, normocephalic Eye exam: PRESENT: EOMI, PERRLA Ear exam: PRESENT: normal external ear exam Mouth exam: PRESENT: moist, neck supple Neck exam: PRESENT: full ROM. ABSENT: JVD, tenderness Respiratory exam: PRESENT: crackles - Improvement of movement of air when compared to previous assessment. Cardiovascular exam: PRESENT: irregular rhythm. ABSENT: diastolic murmur, systolic murmur Vascular exam: PRESENT: normal capillary refill GI/Abdominal exam: PRESENT: normal bowel sounds, soft. ABSENT: guarding, tenderness Extremities exam: ABSENT: joint swelling, pedal edema, tenderness Musculoskeletal exam: PRESENT: full ROM Neurological exam: PRESENT: alert, oriented to person, oriented to place, oriented to time Psychiatric exam: PRESENT: normal mood Skin exam: PRESENT: normal color Results Laboratory Results: 07/21/17 05:18 07/21/17 05:18 07/21/17 07/21/17 05:18 05:18 WBC 10.6 H RBC 3.70 L Hgb 11.5 L Hct 34.5 L MCV 93 MCH 31.2 MCHC 33.4 RDW 16.0 H Plt Count 189 Seg Neutrophils % Not Reportable Lymphocytes % Not Reportable Monocytes % Not Reportable Eosinophils % Not Reportable Basophils % Not Reportable Absolute Neutrophils Not Reportable Absolute Lymphocytes Not Reportable Absolute Monocytes Not Reportable Absolute Eosinophils Not Reportable Absolute Basophils Not Reportable Sodium 140.9 Potassium 4.2 Chloride 105 Carbon Dioxide 31 H Anion Gap 5 BUN 29 H Creatinine 1.05 Est GFR ( Amer) > 60 Est GFR (Non-Af Amer) > 60 Glucose 119 H Calcium 8.6 Magnesium 2.3 Total Bilirubin 0.6 AST 28 ALT 42 Alkaline Phosphatase 61 Total Protein 5.9 L Albumin 3.3 L 07/18/17 07/18/17 07/18/17 19:20 19:20 19:20 Creatine Kinase 226 H Troponin I 0.019 NT-Pro-B Natriuret Pep 1130 H 07/19/17 07/19/17 07/19/17 01:25 01:25 08:00 Creatine Kinase 220 H 205 H Troponin I 0.013 NT-Pro-B Natriuret Pep 07/19/17 08:00 Creatine Kinase Troponin I 0.017 NT-Pro-B Natriuret Pep Impressions: Chest/Abdomen CTA 07/18/17 00:00 IMPRESSION: No pulmonary emboli. Asbestos exposure with extensive pleural calcification. Interstitial changes suggest interstitial pulmonary edema. Pleural-based density on the left may be associated with the underlying asbestosis. Chest X-Ray 07/18/17 12:34 IMPRESSION: Fairly extensive pleural and parenchymal changes in the mid and lower left hemithorax as noted above which could represent a combination of pleural effusion and associated atelectasis/ infiltrate. Followup films to complete clearing is recommended to exclude an underlying process. Other findings as noted above Head CT 07/18/17 12:36 IMPRESSION: MILD CHRONIC CHANGES OF ATROPHY AND MICROVASCULAR ISCHEMIA. NO ACUTE PROCESS. EVIDENCE OF ACUTE STROKE: NO. Assessment & Plan - Diagnosis (1) Acute on chronic respiratory failure with hypoxia and hypercapnia Is this a current diagnosis for this admission?: Yes Plan: CTA of chest results noted. Clinically improved. Patient reassured that he may need higher oxygen requirement on discharge. (2) COPD with exacerbation Is this a current diagnosis for this admission?: Yes Plan: Decrease IV steroid, discontinue Levaquin and placed on meropenem. Otherwise continue current regimen she is responding (3) Atrial fibrillation Qualifiers: Atrial fibrillation type: permanent Qualified Code(s): I48.2 - Chronic atrial fibrillation Is this a current diagnosis for this admission?: Yes Plan: Stable. Continue outpatient treatment. Having episodes of rapid ventricular response. Order one time dose of digoxin IV and consult cardiology. Patient has problems with hypotension. (4) Morbid obesity Is this a current diagnosis for this admission?: Yes Plan: Can contribute to worsening of COPD (5) Syncope and collapse Is this a current diagnosis for this admission?: Yes Plan: Likely due to sudden drop of oxygen. (6) Pulmonary asbestosis Is this a current diagnosis for this admission?: Yes Plan: Contributing to presentation. Highly suspect that this patient also has an element of pulmonary hypertension. Echocardiogram result pending. (7) Hypotension Qualifiers: Hypotension type: unspecified hypotension type Qualified Code(s): I95.9 - Hypotension, unspecified Is this a current diagnosis for this admission?: Yes Plan: Resolved. Suspect the patient does have pulmonary hypertension therefore being very fluid sensitive. Off IV fluids with improvement of leg swelling. Echocardiogram result is pending (8) Constipation Qualifiers: Constipation type: unspecified constipation type Qualified Code(s): K59.00 - Constipation, unspecified Is this a current diagnosis for this admission?: Yes Plan: Continue current bowel regimen (9) Anemia Qualifiers: Anemia type: unspecified type Qualified Code(s): D64.9 - Anemia, unspecified Is this a current diagnosis for this admission?: Yes Plan: Likley of chronic disease. To trend (10) Hyperglycemia Is this a current diagnosis for this admission?: Yes Plan: Probably steroid induced. Check A1C. Add sliding scale (11) COPD with acute bronchitis Is this a current diagnosis for this admission?: Yes Plan: We will continue with current treatment for COPD exacerbation. Will discontinue Levaquin p.o. and change to meropenem since concerned about Pseudomonas that may be resistant to Levaquin - Time Time Spent with patient: 15-24 minutes Medications reviewed and adjusted accordingly: Yes Anticipated discharge: Home Within: within 72 hours - Inpatient Certification Based on my medical assessment, after consideration of the patient's comorbidities, presenting symptoms, or acuity I expect that the services needed warrant INPATIENT care.: Yes I certify that my determination is in accordance with my understanding of Medicare's requirements for reasonable and necessary INPATIENT services [42 CFR 412.3e].: Yes Medical Necessity: Need For Continuous Telemetry Monitoring, Need for Nebulizer Therapy and Monitoring of Response, Need for IV Antibiotics
[2017-07-21] MEDS: DILTIAZEM HCL/D5W 125 MG/125 ML RTUINJ IV PRN ×2 (12:46→22:01)
[2017-07-21] MEDS ORDERED: ONDANSETRON HCL INJ/PF 4 MG/2 ML SDV IV PRN (13:00)
[2017-07-21] MEDS: MEROPENEM 1 GM in NORMAL SALINE 50 ML IV SCH ×2 (14:20→21:22)
[2017-07-21 14:44] LABS: FREE T3 1.23 pg/mL (2.77-5.27)
[2017-07-21 14:57] LABS: THYROID STIMULATING HORMONE 13.7 uIU/mL (0.47-4.68)
--- NOTE | 2017-07-21 15:43 | XCELERA REPORT ---
[address] [address] Transthoracic Echocardiogram Report Name: GEORGIE CLARK Age: 81 yrs Gender: Male : 1935 Patient Status: Inpatient Patient Location: ICU^2^A Study Date: 07/21/2017 11:56 AM Procedure: A two-dimensional transthoracic echocardiogram with color flow and Doppler was performed. Study Quality: Technically suboptimal. Poor endocardial defenition and poor doppler interogation. Reason For Study: PULMONARY HYPERTENSION Ordering Physician: TARIK RAMOS Performed By: Zohra Lake Interpretation Summary The left ventricle is moderately dilated. There is normal left ventricular wall thickness. LV EF is 35% Left ventricular systolic function is moderate to severely reduced. There is moderate to severe global hypokinesis of the left ventricle. The right ventricle is not well visualized secondary to technical limitations The right atrium is normal. The left and right artia are moderately dilated There is no evidence of mitral valve prolapse. There is no mitral valve stenosis. There is no mitral regurgitation noted. There is no aortic valvular vegetation. There is no aortic valve stenosis There is no LVOT obstruction. No aortic regurgitation is present. There is no tricuspid stenosis. Perhaps mild TR.Mild pulmonary hypertension.RVSP is 30 to 44 mm of Hg , with RA mean of 10 to 15. There is mild pulmonary hypertension by echo There is no pericardial effusion. MMode/2D Measurements & Calculations RVDd: 3.6 cm LVIDd: 6.1 cm FS: 14.2 % Ao root diam: 3.7 cm IVSd: 0.96 cm LVIDs: 5.3 cm EDV(Teich): 190.1 ml Ao root area: 10.7 cm2 LVPWd: 1.0 cm ESV(Teich): 133.8 ml EF(Teich): 29.6 % Doppler Measurements & Calculations MV E max katelyn: MV dec slope: Ao V2 max: LV V1 max P.0 cm/sec 557.8 cm/sec2 118.5 cm/sec 1.8 mmHg MV A max katelyn: MV dec time: Ao max PG: LV V1 max: 29.4 cm/sec 0.12 sec 5.6 mmHg 66.3 cm/sec MV E/A: 2.2 PA V2 max: TR max katelyn: 67.6 cm/sec 262.7 cm/sec PA max PG: TR max P.7 mmHg 1.8 mmHg Left Ventricle The left ventricle is moderately dilated. There is normal left ventricular wall thickness. LV EF is 35%. Left ventricular systolic function is moderate to severely reduced. LV diastolic function could not be adequately assessed due to atrial fibrilation. There is moderate to severe global hypokinesis of the left ventricle. There is no thrombus. Right Ventricle The right ventricle is not well visualized secondary to technical limitations. Atria The right atrium is normal. The left and right artia are moderately dilated. Mitral Valve There is no evidence of mitral valve prolapse. There is no mitral valve stenosis. There is no mitral regurgitation noted. Aortic Valve There is no aortic valvular vegetation. There is no aortic valve stenosis. There is no LVOT obstruction. No aortic regurgitation is present. Tricuspid Valve There is no tricuspid stenosis. Perhaps mild TR.Mild pulmonary hypertension.RVSP is 30 to 44 mm of Hg , with RA mean of 10 to 15. There is mild pulmonary hypertension by echo. Pulmonic Valve There is no pulmonic valvular stenosis. There is no pulmonic valvular regurgitation. Great Vessels The aortic root is not well visualized but is probably normal size. Effusions There is no pericardial effusion. : TARIK RAMOS > Jalyn Oliver
[2017-07-22] MEDS: ALBUTEROL SULFATE 0.083% NEB 2.5 MG/3 ML AMPUL NEB PRN (02:10)
[2017-07-22] MEDS: ACETYLCYSTEINE 10% NEB 400 MG/4 ML VIAL NEB SCH ×4 (02:10→20:22)
[2017-07-22] MEDS: LANSOPRAZOLE 15 MG TAB.RAP.DR PO SCH (05:07)
[2017-07-22] MEDS: MEROPENEM 1 GM in NORMAL SALINE 50 ML IV SCH (05:08)
[2017-07-22] MEDS: IPRATROPIUM/ALBUTEROL 0.5-2.5 MG/3 ML AMPUL NEB SCH (08:20)
[2017-07-22] MEDS: FUROSEMIDE 40 MG TABLET PO SCH (08:34)
[2017-07-22] MEDS: APIXABAN 5 MG TABLET PO SCH ×2 (10:05→17:36)
[2017-07-22] MEDS: CALCIUM CARBONATE 250 MG/VITAMIN D3 125 UNIT TABLET PO SCH (10:05)
[2017-07-22] MEDS: POLYETHYLENE GLYCOL 3350 POWDER 17 GM/1 PACKET PO SCH (10:06)
[2017-07-22] MEDS: METHYLPREDNISOLONE INJ 40 MG/1 ML SDV IV SCH (10:06)
[2017-07-22] MEDS: POTASSIUM CHLORIDE 10 MEQ TABLET.SA PO SCH ×2 (10:06→17:36)
[2017-07-22] MEDS: TAMSULOSIN HCL 0.4 MG CAP.SR.24H PO SCH (10:06)
[2017-07-22] MEDS: LEFLUNOMIDE 20 MG TABLET PO SCH (10:06)
[2017-07-22] MEDS: MULTIVIT-STRESS FORMULA/ZINC TABLET PO SCH (10:06)
[2017-07-22] MEDS: DOCUSATE SODIUM 100 MG CAPSULE PO SCH (10:06)
[2017-07-22] MEDS: GUAIFENESIN 600 MG TABLET.SA PO SCH (10:06)
[2017-07-22] MEDS: DILTIAZEM HCL/D5W 125 MG/125 ML RTUINJ IV PRN ×2 (10:06→21:35)
[2017-07-22] MEDS: OMEGA-3 ACID ETHYL ESTERS 1 GM CAPSULE PO SCH ×2 (10:07→17:36)
[2017-07-22] MEDS: TIOTROPIUM BROMIDE DPI 5 CAP/KIT (18 MCG/CAP) IH SCH (10:07)
[2017-07-22] MEDS: CHOLECALCIFEROL (D3) 1,000 UNIT TABLET PO SCH (10:10)
[2017-07-22] MEDS ORDERED: PROMETHAZINE HCL INJ 25 MG/1 ML VIAL IV PRN (11:48)
[2017-07-22] MEDS: ROFLUMILAST 500 MCG TABLET PO SCH (12:49)
[2017-07-22] MEDS: LEVALBUTEROL HCL NEB 1.25 MG/3 ML AMPUL NEB SCH ×2 (13:52→20:22)
[2017-07-23] MEDS ORDERED: LEVOTHYROXINE SODIUM 0.025 MG TABLET PO ONE (00:15)
[2017-07-23] MEDS: ACETAMINOPHEN 325 MG TABLET PO PRN ×2 (01:01→10:39)
[2017-07-23] MEDS: LEVALBUTEROL HCL NEB 1.25 MG/3 ML AMPUL NEB SCH ×3 (01:41→14:43)
[2017-07-23] MEDS: ACETYLCYSTEINE 10% NEB 400 MG/4 ML VIAL NEB SCH ×3 (01:41→14:43)
[2017-07-23] MEDS: LANSOPRAZOLE 15 MG TAB.RAP.DR PO SCH (05:11)
[2017-07-23] MEDS ORDERED: LEVOTHYROXINE SODIUM 0.025 MG TABLET PO SCH (06:00)
[2017-07-23] MEDS ORDERED: PREDNISONE 20 MG TABLET PO SCH (10:00)
[2017-07-23] MEDS ORDERED: METOPROLOL SUCCINATE 25 MG TAB.SR.24H PO SCH (10:00)
[2017-07-23] MEDS ORDERED: FUROSEMIDE INJ/PF 40 MG/4 ML SDV IV SCH (10:00)
[2017-07-23] MEDS ORDERED: METOPROLOL TARTRATE PF/INJ 5 MG/5 ML SDV IV PRN (10:04)
[2017-07-23] MEDS: POLYETHYLENE GLYCOL 3350 POWDER 17 GM/1 PACKET PO SCH (10:39)
[2017-07-23] MEDS: CHOLECALCIFEROL (D3) 1,000 UNIT TABLET PO SCH (10:40)
[2017-07-23] MEDS: CALCIUM CARBONATE 250 MG/VITAMIN D3 125 UNIT TABLET PO SCH (10:40)
[2017-07-23] MEDS: OMEGA-3 ACID ETHYL ESTERS 1 GM CAPSULE PO SCH ×2 (10:40→17:30)
[2017-07-23] MEDS: TAMSULOSIN HCL 0.4 MG CAP.SR.24H PO SCH (10:40)
[2017-07-23] MEDS: POTASSIUM CHLORIDE 10 MEQ TABLET.SA PO SCH ×2 (10:40→17:30)
[2017-07-23] MEDS: DOCUSATE SODIUM 100 MG CAPSULE PO SCH (10:41)
[2017-07-23] MEDS: MULTIVIT-STRESS FORMULA/ZINC TABLET PO SCH (10:41)
[2017-07-23] MEDS: TIOTROPIUM BROMIDE DPI 5 CAP/KIT (18 MCG/CAP) IH SCH (10:42)
[2017-07-23] MEDS: APIXABAN 5 MG TABLET PO SCH ×2 (10:43→17:31)
[2017-07-23] MEDS: LEFLUNOMIDE 20 MG TABLET PO SCH (10:43)
[2017-07-23] MEDS: ROFLUMILAST 500 MCG TABLET PO SCH (10:43)
--- NOTE | 2017-07-23 13:32 | CONSULTATION REPORT E ---
Consultation Report NAME: GEORGIE CLARK : 1935 AGE: 81Y DATE: 07/22/2017 ROOM: 331 A TO: KATERIN MADRID M.D. FROM: Requesting Physician The patient was briefly seen on 07/21/2017, had formal consult on 07/22/2017. The patient was seen at 8:30 a.m. A total of 50 minutes spent on this patient, reviewing his medications and getting a history from the patient and the patient's . HISTORY OF PRESENT ILLNESS: The patient is a 81-year-old male with known history of hypertension, history of asbestosis, history of lung cancer, status post lobectomy with no recurrence, history of COPD, history of sleep apnea, using CPAP, who states that since the past one week has been having a cough with PND, orthopnea, and leg edema. The cough is brownish-dark in color, but there is no hemoptysis. There is no pleuritic chest pain. On the day of admission, on 07/18, the patient stood up and became syncopal, about a few minutes. Per family, he had no chest pain or discomfort, and there was no palpitation. He was not having any cough causing syncope. Subsequently he again tried to stand up and again had another syncopal episode. His O2 sats were also low, as per the patient, and the patient's came to the emergency room. The patient did have wheezing, orthopnea, and PND. He has a history of paroxysmal atrial fibrillation, but the patient denies any rapid beating of the heart or irregular, rapid heart rate. The patient has never had syncope in the past. He has no history of chest pain. The patient denies any history of fever. He has been having intermittent wheezing also. PAST MEDICAL HISTORY: Positive history of paroxysmal atrial fibrillation. He has a history of hypertension. He has no prior history of congestive heart failure, but the patient's LV ejection fraction by recent echo was 35%. He does have mild pulmonary hypertension with the right ventricular systolic pressure highest being 44 mmHg. He has no history of diabetes mellitus or thyroid disease. He has a history of asbestos exposure and asbestosis. He also has a history of COPD, since he is a former smoker. He also has a history of asthma. He also has a history of sleep apnea and uses CPAP. He has a history of lung cancer that is cured by lobectomy with no recurrence. He also has a history of arthritis. There is no history of thyroid disease. There is no history of myocardial infarction or coronary artery disease. No prior history of congestive heart failure. No prior history of syncope, except on 07/18/2017. SOCIAL HISTORY: The patient is a former smoker. There is no history of ETOH abuse. FAMILY HISTORY: Positive for coronary artery disease and hypertension. ALLERGIES: The patient has no known allergies. MEDICATIONS: His medications include acetaminophen 325 mg p.o. q. 4 hours p.r.n. He is on Mucomyst 400 mg nebulizer treatment q. 6 hours. He is on Eliquis 5 mg p.o. b.i.d. He is on calcium carbonate 2 tablets p.o. daily. He is on vitamin D 1000 units p.o. daily. He is on hypoglycemic precautions with glucose 40% gel 15 grams and 30 grams p.o. p.r.n. hypoglycemia. He is on dextrose 15%, 12.5 grams IV and 25 grams IV p.r.n. hypoglycemia. He is on a Cardizem drip at 10 mg/hour. He is on Colace 100 mg p.o. daily. He is on Lasix 40 mg p.o. q.a.m. He is on glucagon 1 mg IM p.r.n. He is on Accu-Chek's a.c. t.i.d. and at bedtime with sliding-scale regular insulin coverage. He is on Prevacid 15 mg p.o. q. 6 a.m. He is on Arava 20 mg p.o. daily. He is on Xopenex 1.25 mg nebulizer treatment q. 6 hours. He is on Levaquin 500 mg p.o. nightly. He is on morphine sulfate 2 mg IV q. 6 hours p.r.n. He is on multivitamin stress formula 1 tablet p.o. daily. He is on omega-3 acid that is fish oil 1 gram p.o. b.i.d. He is on Miralax 17 grams p.o. daily. He is on KCl 10 mEq p.o. b.i.d. He is on prednisone 40 mg p.o. daily. He is on Phenergan 6.25 mg IV q. 6 hours p.r.n. He is on Daliresp 500 mcg p.o. daily. He is on Flomax 0.4 mg p.o. daily. He is on Spiriva HandiHaler 1 capsule inhalation daily. DISPOSITION: The patient is a DNR. His is his surrogate healthcare decision maker. REVIEW OF SYSTEMS: CONSTITUTIONAL: Denies any fevers, chills, or rigors. HEAD: No headaches. He has been having dizziness and syncopal episodes as mentioned earlier, without any other symptoms of cough or palpitations or chest pain or increased wheezing. EYES: No history of amblyopia or diplopia. No history of amaurosis fugax. EARS: No history of hearing loss. No tinnitus. No history of recurrent ear infections. NOSE: No history of hayfever. No history of nosebleeds. MOUTH: No altered taste sensation. No ulcers in the mouth. No bleeding from the gums. THROAT: No odynophagia or dysphagia. No history of recurrent sore throats. SKIN: No skin rashes. No pruritus. No yellowish discoloration of the skin. No skin cancer. No history of psoriasis. NECK: Denies any neck pain. No history of swelling in the neck. No history of goiter. LUNGS: History of asbestosis. History of COPD. History of asthma. Recent symptoms suggestive of acute exacerbation of COPD/pneumonia/bronchitis. The patient has a CPAP, and he uses his CPAP. The patient also has a history of lung cancer, as mentioned earlier, and the patient has had a lobectomy for that on the right side with no recurrence. CARDIAC: History of hypertension. No history of coronary artery disease. No history of congestive heart failure, except at this time the patient has PND, orthopnea, and did have leg edema. His LV ejection fraction is 35%. There is no history of [place]. No history of clinical congestive heart failure in the past history or paroxysmal atrial fibrillation. History of syncope as mentioned earlier; the cause needs to be investigated. For the paroxysmal atrial fibrillation, the patient is on Eliquis 5 mg p.o. b.i.d. He is also on amiodarone 200 mg p.o. daily. GASTROINTESTINAL: No history of GI bleed. No history of peptic ulcer disease. No history of fatty food intolerance. No history of cirrhosis. ENDOCRINE: No history of diabetes mellitus. No history of thyroid disease. No history of polydipsia or polyuria. No history of . MUSCULOSKELETAL: History of arthritis and chronic back ache. history of rheumatoid arthritis. RENAL: No history of chronic kidney disease. No history of hematuria, pyuria, or dysuria. No history of symptoms of UTI. CENTRAL NERVOUS SYSTEM: No history of TIA or CVA. No history of headaches, migraines, or seizures. History of sleep apnea present, wears CPAP. PSYCHIATRIC: No history of suicidal ideation or homicidal ideation. No history of anxiety or depression. VASCULAR: No history of calf or buttock claudication, but the patient does not walk much. There is no history of DVT. HEMATOLOGICAL: No history of bleeding diathesis. No history of clotting disorders, although his hemoglobin is stable. He has no history of thrombocytopenia or hematological . PHYSICAL EXAMINATION: VITAL SIGNS: On examination at present the patient is back in atrial fibrillation with controlled ventricular response. He is afebrile with a temperature of 97.8 degrees Fahrenheit. Pulse is 85 beats per minute. Blood pressure 119/87. Respirations are 24 per minute. O2 sats are 92% on 4 liters nasal cannula. HEAD: Atraumatic, normocephalic. EYES: Pupils are equal, round, and regular, reactive to light and accommodation. Extraocular movements are normal. There is no conjunctival pallor. EARS: Tympanic membranes are intact. External auditory canals are clear. NOSE: There is no deviated nasal septum. There is no inflammation of the nasal mucous membrane. MOUTH: Mucous membranes of the mouth are moist. Tongue is moist. There are no ulcers. There is no bleeding from the gums. THROAT: There is no redness of the oropharynx. There are no exudates. SKIN: There are no skin rashes. There are no petechiae or ecchymoses. There are no skin lesions. NECK: Supple. There is mild JVD present. The carotids are equal. There is no bruit. There is no lymphadenopathy. There is no goiter. There is no neck stiffness. Trachea is central. LUNGS: Show bilateral wheezing, rhonchi, and coarse crackles. There are a few bibasilar rales of CHF. HEART: S1/S2 is heard. There is no S3 gallop. There is no S4 gallop. S1 at present is of variable intensity, since the patient is in atrial fibrillation. A systolic murmur on the left sternal border and apex. There is no rub. ABDOMEN: Soft, slightly obese, nontender. There is no hepatosplenomegaly. Bowel sounds are well heard. There are no tender areas or masses. There is no rebound, guarding, or rigidity. EXTREMITIES: Femorals are diminished. There are no femoral bruits. Leg pulses are diminished. There is mild pedal edema. There is no DVT or cellulitis. There is no cyanosis or clubbing. CENTRAL NERVOUS SYSTEM: The patient is conscious, awake, alert, oriented x3, with no focal deficits. PSYCHIATRIC: The patient's judgement and insight are intact. His affect is normal. DIAGNOSTIC STUDIES: The patient's chest x-ray shows very extensive pleural and parenchymal changes in the mid and lower-left hemithorax as noted, above which could represent combination pleural effusion and associated atelectasis/infiltrate. The patient's CTA of the chest and abdomen is reported as no pulmonary emboli; asbestosis exposure with extensive pleural calcification; interstitial changes suggest interstitial pulmonary edema; a pleural-based density in the left may be associated with underlying asbestosis. The patient's EKG done on the shows atrial fibrillation, probable IVCD with left axis deviation, low-voltage in the frontal leads, nonspecific T abnormalities in the lateral leads, borderline prolonged QT interval. The patient's echocardiogram shows the left ventricle is moderately dilated. There is normal left ventricular wall thickness. LV ejection fraction is 35%. There is moderate to severe global hypokinesis of the left ventricle. The left atrium is moderately dilated. There is no evidence of mitral valve prolapse. There is no mitral valve stenosis. There is no mitral regurgitation noted. There is no aortic valve vegetation. There is no tricuspid stenosis. There is mild TR, mild pulmonary hypertension. Right ventricular systolic pressure is 39-44 mmHg with an RA mean of 10-15. There is no pericardial effusion. The patient's troponin-I has been negative. The patient's white count was 10,600 yesterday, hemoglobin was 11.9, hematocrit was 34.5, platelet count was 189,000. The patient's ABGs on the showed a pH of 7.41. His pCO2 was 52.8, which is high, pO2 was high at 519.6. His O2 sat was 99.9% on FiO2 of 100%. The patient on the 21 of July showed a sodium of 140.9, potassium 4.2, chloride 105, CO2 is 31. The patient's BUN is 29, creatinine is 1.05, GFR is greater than 60. His glucose is 119, and his liver function tests are normal, except for a slightly-elevated direct bilirubin of 0.5. His albumin is 3.3, total protein is 5.9. His free T3 is 1.23, his free T4 is 0.22, and his TSH is 13.70. IMPRESSION: 1. Acute on chronic respiratory failure with hypercapnia. The patient is on antibiotics, respiratory treatment, steroids, and nebulizer treatments. Has made some degree of improvement. 2. COPD with exacerbation. Current treatment with nebulizers, steroids, and antibiotics. 3. Atrial fibrillation, appears to be chronic. There is no point in the patient being on amiodarone, since the patient has got chronic atrial fibrillation. We will stop the patient's amiodarone and start the patient on Cardizem drip and convert it to p.o. Cardizem. Also note that the patient is hypothyroid, most likely secondary to amiodarone. 4. Cardiomyopathy with LV ejection fraction of 35%. 5. Most likely acute on chronic systolic heart failure. 6. History of arthritis. 7. History of asthma. 8. History of asbestosis with pleural calcification. 9. Syncope, question cause. 10. Sleep apnea, on CPAP. 11. Hypothyroidism. Will start the patient on replacement thyroid. 12. History of lung cancer, in remission, status post lower-lobe lobectomy. RECOMMENDATIONS: The patient's medications are reviewed and medications added and adjusted. The patient's amiodarone has been stopped. I have discussed with the patient and the patient's that since the patient is in chronic atrial fibrillation, there is no definite indication here to put the patient on amiodarone. Continue the patient on Eliquis. We will replace the patient's thyroid, continue antibiotics. Will recommend IV antibiotics instead of p.o. Echo findings were discussed with the patient and patient's . For the congestive heart failure, we will start the patient on some Lasix. All of the above discussed with patient. Note, medical decision making is of high complexity. Will follow with you. DICTATING PHYSICIAN: KATERIN MADRID M.D. [id number] PHY#: [id number] ID: [id number] JOB#: [id number] ACCT: [id number] cc:KATERIN MADRID M.D. >
[2017-07-23] MEDS ORDERED: AMOXICILLIN TR/POT CLAVULANATE 500-125 MG TAB PO SCH (14:00)
[2017-07-23 15:22] VITALS: BP 101/64
[2017-07-23] MEDS ORDERED: LEVOFLOXACIN 500 MG TABLET PO SCH (18:00)
--- NOTE | 2017-07-23 22:33 | PROGRESS NOTE E ---
Progress Note NAME: GEORGIE CLARK : 1935 AGE: 81Y DATE: 07/23/2017 ROOM: 331 SUBJECTIVE: The patient states he has no chest pain or discomfort. His shortness of breath is back to baseline. He has no cough. He has no wheezing. He has no PND, orthopnea. He has no leg edema. He denies any palpitations. He continues to be in atrial fibrillation. There is no bleeding on Eliquis. OBJECTIVE: GENERAL: On examination, the patient is mildly obese but well groomed, in no acute distress. VITAL SIGNS: He is afebrile with a temperature of 97.5 degrees Fahrenheit, pulse is 79 beats per minute, irregularly irregular, blood pressure is 132/86, respirations are 22 per minute, O2 saturations are 92% on 6 L nasal cannula. HEAD: Atraumatic, normocephalic. EYES: Pupils are equal, round, regular, and reactive to light and accommodation. Extraocular movements are normal. There is no conjunctival pallor. There is no scleral icterus. EARS, NOSE, THROAT: Negative. NECK: Supple. There is no JVD. Carotids are equal. There is no bruit. There is no lymphadenopathy. There is no goiter. There is no neck stiffness. Trachea central. LUNGS: Bilateral coarse crackles, diminished air entry and prolonged expiration. There is no rhonchi or rales. HEART: S1 and S2 are heard. There is no S3 gallop. There is no S4 gallop. S1 is of variable intensity. There is a systolic murmur in the left sternal border on the apex. There is no rub. ABDOMEN: Soft, slightly obese, nontender. There is no hepatosplenomegaly. Bowel sounds are well heard. EXTREMITIES: Femorals are diminished. There are no femoral bruits. Leg pulses are diminished. There is no pedal edema. There is no DVT or cellulitis. There is no cyanosis or clubbing. CENTRAL NERVOUS SYSTEM: The patient is conscious, awake, alert, oriented x3 with no focal deficit. PSYCHIATRIC: The patient's judgment and insight are intact. His affect is normal. LABORATORY DATA: The patient's glucose is 130. IMPRESSION: 1. Acute on chronic respiratory failure with hypercapnia, resolved, back to baseline. 2. COPD with exacerbation, at present back to baseline COPD. Continue nebulizer, steroids and antibiotics. 3. Atrial fibrillation, appears to be chronic. There is no point to the patient being on amiodarone, which has been discontinued, but since the patient has chronic atrial fibrillation, we will stop the Cardizem drip and place the patient on p.o. Cardizem. Also continue Eliquis. 4. Cardiomyopathy with LV ejection fraction of 35%. 5. Most likely chronic systolic heart failure which is acute on chronic. At present, stable with no decompensation. 6. History of arthritis. 7. History of asthma. 8. History of asbestosis with pleural calcification. 9. Syncope. Question cause. No recurrence. 10. Sleep apnea, on CPAP. 11. Hypothyroidism. The patient is on replacement thyroid. 12. History of lung cancer status post lobectomy with no recurrence. RECOMMENDATION: Patient desires going home. Continue his current medications. Medications have been reviewed. We will follow the patient in the office. We will sign off. The patient has an appointment to see me and will follow up in the office. Medical decision making at present is of moderate complexity in view of multiple comorbidities involved. DICTATING PHYSICIAN: KATERIN MADRID M.D. [id number] QUINTEN#: [id number] ID: [id number] JOB#: [id number] ACCT: [id number] cc: >
--- NOTE | 2017-07-24 08:44 | PDOC PROGRESS REPORT ---
Subjective Progress Note for:: 07/22/17 Subjective:: Patient states he is feeling better although he is still coughing up quite a bit. However he is happy to be able to cough and spit out was in his chest. Patient states that is the best his breathing has felt in a while. Planes patient that he is not being discharged today as he still on Cardizem drip and is on 6 L of oxygen. Patient normally uses 4 L of oxygen at home. Reason For Visit: ACUTE ON CHRONIC RESPIRATORY FAILURE,AECOPD Physical Exam Vital Signs: Temp Pulse Resp BP Pulse Ox 97.8 F 75 22 H 109/67 90 L 07/22/17 19:21 07/22/17 21:00 07/22/17 19:21 07/22/17 21:01 07/22/17 19:21 Intake & Output 07/21/17 07/22/17 07/23/17 06:59 06:59 06:59 Intake Total 337 842 7291 Output Total 850 1800 1250 Balance 30 -939 -198 Weight 108.7 kg 108.5 kg General appearance: PRESENT: no acute distress, obese Head exam: PRESENT: normocephalic Eye exam: PRESENT: EOMI. ABSENT: scleral icterus Ear exam: PRESENT: normal external ear exam Mouth exam: PRESENT: moist Neck exam: ABSENT: carotid bruit, JVD, lymphadenopathy, thyromegaly Respiratory exam: PRESENT: rhonchi - Diffuse, unlabored. ABSENT: rales, wheezes Cardiovascular exam: PRESENT: RRR. ABSENT: diastolic murmur, rubs, systolic murmur GI/Abdominal exam: PRESENT: normal bowel sounds, soft. ABSENT: distended, guarding, mass, organolmegaly, rebound, tenderness Rectal exam: PRESENT: deferred Extremities exam: PRESENT: full ROM. ABSENT: calf tenderness, clubbing, pedal edema Neurological exam: PRESENT: alert, awake, oriented to person, oriented to place , oriented to time, oriented to situation, CN II-XII grossly intact. ABSENT: motor sensory deficit Psychiatric exam: PRESENT: appropriate affect, normal mood. ABSENT: homicidal ideation, suicidal ideation Skin exam: PRESENT: cyanosis, dry, intact, warm. ABSENT: rash Results Laboratory Results: 07/21/17 05:18 07/21/17 05:18 07/22/17 10:00 Stool Occult Blood NEGATIVE 07/18/17 07/18/17 07/18/17 19:20 19:20 19:20 Creatine Kinase 226 H Troponin I 0.019 NT-Pro-B Natriuret Pep 1130 H 07/19/17 07/19/17 07/19/17 01:25 01:25 08:00 Creatine Kinase 220 H 205 H Troponin I 0.013 NT-Pro-B Natriuret Pep 07/19/17 08:00 Creatine Kinase Troponin I 0.017 NT-Pro-B Natriuret Pep Impressions: Chest/Abdomen CTA 07/18/17 00:00 IMPRESSION: No pulmonary emboli. Asbestos exposure with extensive pleural calcification. Interstitial changes suggest interstitial pulmonary edema. Pleural-based density on the left may be associated with the underlying asbestosis. Chest X-Ray 07/18/17 12:34 IMPRESSION: Fairly extensive pleural and parenchymal changes in the mid and lower left hemithorax as noted above which could represent a combination of pleural effusion and associated atelectasis/ infiltrate. Followup films to complete clearing is recommended to exclude an underlying process. Other findings as noted above Head CT 07/18/17 12:36 IMPRESSION: MILD CHRONIC CHANGES OF ATROPHY AND MICROVASCULAR ISCHEMIA. NO ACUTE PROCESS. EVIDENCE OF ACUTE STROKE: NO. Assessment & Plan - Diagnosis (1) Acute on chronic respiratory failure with hypoxia and hypercapnia Is this a current diagnosis for this admission?: Yes Plan: Patient is on supplemental oxygen. Patient is requiring up to 6 L and normally uses 4-5 L at home. Will order for the oxymizer see if oxygen needs can be decreased. (2) Anemia Qualifiers: Anemia type: unspecified type Qualified Code(s): D64.9 - Anemia, unspecified Is this a current diagnosis for this admission?: Yes Plan: Likely anemia of chronic disease but is currently stable. (3) Atrial fibrillation Qualifiers: Atrial fibrillation type: permanent Qualified Code(s): I48.2 - Chronic atrial fibrillation Is this a current diagnosis for this admission?: Yes Plan: Still on Cardizem drip, heart rate is fluctuating however this might be secondary to patient underlying lung disease. Will continue Cardizem drip for now along with consultation and recommendations from cardiology. On Eliquis for anticoagulation. (4) COPD with acute bronchitis Is this a current diagnosis for this admission?: Yes Plan: She was initially treated with p.o. Levaquin and then switched to meropenem. Sputum did not grow grow Pseudomonas however it did grow Proteus mirabilis staph aureus which is also resistant to Levaquin but susceptible to meropenem. This is also susceptible to Augmentin which patient was started on. Treat for 7 days. (5) COPD with exacerbation Is this a current diagnosis for this admission?: Yes Plan: Patient is currently on nebs and Mucomyst. Patient states he is bringing up a lot of sputum is helping him to breathe better. Patient steroids are currently being weaned. (6) Constipation Qualifiers: Constipation type: unspecified constipation type Qualified Code(s): K59.00 - Constipation, unspecified Is this a current diagnosis for this admission?: Yes Plan: Soft (7) Hypotension Qualifiers: Hypotension type: unspecified hypotension type Qualified Code(s): I95.9 - Hypotension, unspecified Is this a current diagnosis for this admission?: Yes Plan: Patient blood pressures are better however they have been running low normal as patient is on Cardizem drip. If patient blood pressure seems to trend downward will discontinue Cardizem drip and start patient on Toprol-XL 25 mg. (8) Morbid obesity Is this a current diagnosis for this admission?: Yes Plan: Will auto [employer] travel counselor patient on weight loss and healthy diet as extra weight can affect his breathing negatively. (9) Pulmonary asbestosis Is this a current diagnosis for this admission?: Yes Plan: Continue supportive care. Patient does have mild pulmonary hypertension with RVSP of 33-44 mmHg. (10) Syncope and collapse Is this a current diagnosis for this admission?: Yes Plan: Is likely due to hypoxic severe. Patient has been working with PT and has not had any syncopal episodes during his hospitalization. Patient would be discharged home with home health and PT. (11) Systolic heart failure Qualifiers: Heart failure chronicity: chronic Qualified Code(s): I50.22 - Chronic systolic (congestive) heart failure Is this a current diagnosis for this admission?: Yes Plan: Patient has a EF of 35% on cardiac echo completed on this admission. Patient will be started on metoprolol. Patient is borderline hypotensive did present with a syncopal episode therefore making starting lisinopril along with diuretic challenging. Patient appears to be euvolemic at this time but needs a diuretic and ACEI and ARB at some point. - Time Time Spent with patient: 15-24 minutes Anticipated discharge: Home with Homehealth Within: within 24 hours - Inpatient Certification Medical Necessity: Need Close Monitoring Due to Risk of Patient Decompensation
--- NOTE | 2017-07-24 08:56 | PDOC DISCHARGE SUMMARY ---
General - Admit/Disc Date/PCP Admission Date/Primary Care Provider: 07/18/17 16:52 MINA FRANCO MD Discharge Date: 07/23/17 - Discharge Diagnosis (1) Acute on chronic respiratory failure with hypoxia and hypercapnia Is this a current diagnosis for this admission?: Yes (2) Anemia Is this a current diagnosis for this admission?: Yes (3) Atrial fibrillation Is this a current diagnosis for this admission?: Yes (4) COPD with acute bronchitis Is this a current diagnosis for this admission?: Yes (5) COPD with exacerbation Is this a current diagnosis for this admission?: Yes (6) Constipation Is this a current diagnosis for this admission?: Yes (7) Hypotension Is this a current diagnosis for this admission?: Yes (8) Morbid obesity Is this a current diagnosis for this admission?: Yes (9) Pulmonary asbestosis Is this a current diagnosis for this admission?: Yes (10) Syncope and collapse Is this a current diagnosis for this admission?: Yes (11) Systolic heart failure Is this a current diagnosis for this admission?: Yes - Additional Information Resuscitation Status: Do Not Resuscitate Discharge Diet: Cardiac Discharge Activity: Activity As Tolerated Home Medications: Apixaban [Eliquis 5 mg Tablet] 5 mg PO BID 07/18/17 Furosemide [Lasix 40 mg Tablet] 80 mg PO QAM 07/18/17 Potassium Chloride [Klor-Con M10] 10 meq PO BID 07/18/17 Prednisone [Deltasone 5 mg Tablet] 10 mg PO DAILY 07/18/17 Tiotropium [place] [Spiriva Handihaler 18 mcg/dose (30 Dose)] 1 cap IH DAILY 03/27 Albuterol Sulfate [Proventil 2 mg/5 mL Syrup 60 mL] 2 puff IH Q6 PRN 07/19/17 Budesonide/Formoterol Fumarate [Symbicort HFA 160-4.5 mcg Inhaler 6 gm] 2 puff IH DAILY 07/19/17 Calcium Carbonate/Vitamin D3 [Os-Robles 500-Vit D3 200 Caplet] 1 tab PO DAILY 07/19 Cholecalciferol (Vitamin D3) [Vitamin D3 1000 Unit Tablet] 1,000 unit PO DAILY 07/19/17 Guaifenesin [Mucinex] 600 mg PO BID 07/19/17 Leflunomide [Arava 20 mg Tablet] 20 mg PO DAILY 07/19/17 Multivit-Min/Iron Fum/Folic AC [Difkj-Chtouux-Mtfitpak Tablet] 1 each PO DAILY 07/19/17 [place]-3 Fatty Acids/Fish Oil [Fish Oil 1,000 mg Capsule] 1 each PO BID 07/19/17 Omeprazole 20 mg PO DAILY 07/19/17 Tamsulosin HCl [Flomax 0.4 mg Cap.sr] 0.4 mg PO DAILY 07/19/17 Acetylcysteine [Mucomist 10% Neb 400 mg/4 mL Vial] 400 mg NEB Q8 #90 vial.neb Amox Tr/Potassium Clavulanate [Augmentin "500" Tablet] 1 tab PO Q8 #21 tablet 07/23/17 Levalbuterol HCl [Xopenex Neb 1.25 mg/3 ml Ampul] 1.25 mg NEB Q8 #90 vial.neb Methylprednisolone [Medrol Dosepack (4 mg/Tab) 21 Tab/Dosepak] 4 mg PO ASDIR # 21 tab.ds.pk 07/23/17 Metoprolol Succinate [Toprol Xl 25 mg Tab.sr] 25 mg PO Q12 #60 tab.sr.24h History of Present Illness History of Present Illness: GEORGIE CLARK is a 81 year old male brought in after he is found down on the floor. Patient had a syncopal episode. Patient was found to be hypoxic satting 80% on 4 L of O2 please free to H&P dictated by Dr. Henderson is here for complete details. Hospital Course Hospital Course: Patient was brought in and found to have acute on chronic respiratory failure with hypoxia and hypercapnia. Patient was evaluated for possible pulmonary emboli with CTA. There is no pulmonary emboli seen on CTA however due to his asbestos exposure there was extensive pleural calcification and interstitial changes to suggest interstitial pulmonary edema. There is a pleural-based density on the left which may be associated with underlying asbestosis. Patient was continued on intermittent BiPAP and supplemental oxygen up to 6 L. The Oxymizer was later on applied to decrease the amount of oxygen required by the patient. Patient was found to have COPD exacerbation most likely due to acute bronchitis. Patient sputum did grow Proteus mirabilis and staph aureus. Patient was initially started on Levaquin and switch to meropenem and then when the susceptibilities were known patient was started on Augmentin. Patient will complete 7 days of Augmentin. Patient was given aggressive pulmonary toilet with Mucomyst and Xopenex. Patient had productive cough which left him able to breathe better. Patient states he has also been able to participate with physical therapy now that he can breathe better. Has a history of A. fib but was found to be in A. fib with RVR. Patient is normally on amiodarone at home however this medication was discontinued. Patient was evaluated by cardiology and started on Cardizem drip. Patient became hypotensive therefore patient was started on metoprolol XL 25 mg p.o. twice daily and Cardizem drip discontinued. Patient is not to resume amiodarone as patient has thyroid dysfunction and severe lung problems. Also patient is still in A. fib and amiodarone is to be used once patient is in sinus rhythm. Patient did initially present for syncope most likely due to his A. fib with RVR and hypoxemia. Patient did not have any further syncopal episodes during hospitalization. Patient will be discharged with home health and physical therapy. Patient said he did not want to do inpatient rehabilitation as often times he becomes sick when he is placed in these facilities. Patient also has congestive heart failure EF of 35%. Patient is on beta-dottie and Lasix. As patient is borderline hypotensive no JEFRY and are low was added at this time. When patient follows up with his java grails developer been additional medications can be added at that time if appropriate. Physical Exam Vital Signs: Temp Pulse Resp BP Pulse Ox 97.5 F 90 24 H 101/64 92 07/23/17 15:21 07/23/17 15:21 07/23/17 15:21 07/23/17 15:21 07/23/17 15:21 Intake & Output 07/23/17 07/24/17 07/25/17 06:59 06:59 06:59 Intake Total 1767 537 Output Total 0630 300 Balance -258 237 Weight 101.8 kg General appearance: PRESENT: no acute distress, obese Head exam: PRESENT: normocephalic Eye exam: PRESENT: EOMI. ABSENT: scleral icterus Ear exam: PRESENT: normal external ear exam Mouth exam: PRESENT: moist Neck exam: ABSENT: carotid bruit, JVD, lymphadenopathy, thyromegaly Respiratory exam: PRESENT: decreased breath sounds, unlabored. ABSENT: rales, rhonchi, wheezes Cardiovascular exam: PRESENT: RRR. ABSENT: diastolic murmur, rubs, systolic murmur Pulses: PRESENT: normal dorsalis pedis pul Vascular exam: PRESENT: normal capillary refill GI/Abdominal exam: PRESENT: normal bowel sounds, soft. ABSENT: distended, guarding, mass, organolmegaly, rebound, tenderness Rectal exam: PRESENT: deferred Extremities exam: PRESENT: full ROM. ABSENT: calf tenderness, clubbing, pedal edema Neurological exam: PRESENT: alert, awake, oriented to person, oriented to place , oriented to time, oriented to situation, CN II-XII grossly intact. ABSENT: motor sensory deficit Psychiatric exam: PRESENT: appropriate affect, normal mood. ABSENT: homicidal ideation, suicidal ideation Skin exam: PRESENT: cyanosis, dry, intact, warm. ABSENT: rash Results Laboratory Results: 07/21/17 05:18 07/21/17 05:18 07/20/17 11:15 Sputum Gram Stain - Final 07/20/17 11:15 Sputum Sputum Culture - Final Proteus Mirabilis Staphylococcus Aureus Reduced Normal [place] 07/18/17 07/18/17 07/18/17 19:20 19:20 19:20 Creatine Kinase 226 H Troponin I 0.019 NT-Pro-B Natriuret Pep 1130 H 07/19/17 07/19/17 07/19/17 01:25 01:25 08:00 Creatine Kinase 220 H 205 H Troponin I 0.013 NT-Pro-B Natriuret Pep 07/19/17 08:00 Creatine Kinase Troponin I 0.017 NT-Pro-B Natriuret Pep Impressions: Chest/Abdomen CTA 07/18/17 00:00 IMPRESSION: No pulmonary emboli. Asbestos exposure with extensive pleural calcification. Interstitial changes suggest interstitial pulmonary edema. Pleural-based density on the left may be associated with the underlying asbestosis. Chest X-Ray 07/18/17 12:34 IMPRESSION: Fairly extensive pleural and parenchymal changes in the mid and lower left hemithorax as noted above which could represent a combination of pleural effusion and associated atelectasis/ infiltrate. Followup films to complete clearing is recommended to exclude an underlying process. Other findings as noted above Head CT 07/18/17 12:36 IMPRESSION: MILD CHRONIC CHANGES OF ATROPHY AND MICROVASCULAR ISCHEMIA. NO ACUTE PROCESS. EVIDENCE OF ACUTE STROKE: NO. Qualifiers PATEINT BEING DISCHARGED WITH ANY OF THE FOLLOWING DIAGNOSIS?: Heart Failure [place] Pt discharged ACEI/ARBS?: No HF Pt being discharged on ACEI for LVEF less than 40%?: Yes Reason(s) for not prescribing ACEI:: Tx not tolerated HF Pt with Afib discharged with Warfarin?: No HF Pt discharged on evidence-based Beta Dottie:: Yes Plan Time Spent: Greater than 30 Minutes
== END 2017-07-23 17:49 | disposition home health service (06) | DRG 189 ==
LOC: ER 12:12 → EH 16:52 → ICU 21:41 → 3S 07-21 22:20
PROVIDERS: ADMIT Internal Medicine; ATTEND Internal Medicine
PROC: 5A09457 Assistance with Respiratory Ventilation, 24-96 Consecutive Hours, Continuous Positive Airway Pressure (ICD-10-PCS; principal; 2017-07-18)
PROC: 3E0F73Z Introduction of Anti-inflammatory into Respiratory Tract, Via Natural or Artificial Opening (ICD-10-PCS; 2017-07-18)
DX: J96.21 Acute and chronic respiratory failure with hypoxia (principal); I50.21 Acute systolic (congestive) heart failure; J44.1 Chronic obstructive pulmonary disease with (acute) exacerbation; J44.0 Chronic obstructive pulmonary disease with (acute) lower respiratory infection; I42.9 Cardiomyopathy, unspecified; J96.22 Acute and chronic respiratory failure with hypercapnia; J61 Pneumoconiosis due to asbestos and other mineral fibers; D64.9 Anemia, unspecified; J20.9 Acute bronchitis, unspecified; K59.00 Constipation, unspecified; I95.9 Hypotension, unspecified; E66.01 Morbid (severe) obesity due to excess calories; Z68.31 Body mass index [BMI] 31.0-31.9, adult; R55 Syncope and collapse; B96.4 Proteus (mirabilis) (morganii) as the cause of diseases classified elsewhere; B95.61 Methicillin susceptible Staphylococcus aureus infection as the cause of diseases classified elsewhere; I11.0 Hypertensive heart disease with heart failure; I48.2 Chronic atrial fibrillation; M19.90 Unspecified osteoarthritis, unspecified site; I27.20 Pulmonary hypertension, unspecified; G47.30 Sleep apnea, unspecified; R73.9 Hyperglycemia, unspecified; T38.0X5A Adverse effect of glucocorticoids and synthetic analogues, initial encounter; Z85.118 Personal history of other malignant neoplasm of bronchus and lung; Z90.2 Acquired absence of lung [part of]; Z99.81 Dependence on supplemental oxygen; Z87.891 Personal history of nicotine dependence; Z82.49 Family history of ischemic heart disease and other diseases of the circulatory system
CPT/HCPCS: 36415; 70450; 71010; 71275; 80048; 80053; 81001; 82272; 82533; 82550; 82553; 82803; 82962; 83036; 83735; 83880; 84439; 84443; 84481; 84484; 85025; 87070; 87077; 87186; 87205; 93005; 93010; 93306; 94640; 94660; 96365; 96366; 99291; G8978-GP; G8979-GP; G8987-GO; G8988-GO; J1160; J1720; J1940; J2185; J2270; J2310; J2920; J3475; J3490; J7030; J7060; J7512; J7620

== ENCOUNTER 2018-01-07 12:50 | Inpatient (IN) | payer MEDICARE, BC ==
[2018-01-07 13:30] LABS: ABSOLUTE LYMPHOCYTES (AUTO) 0.8 10^3/uL (0.5-4.7); ABSOLUTE MONOCYTES (AUTO) 0.6 10^3/uL (0.1-1.4); ABSOLUTE NEUT (AUTO) 3.7 10^3/uL (1.7-8.2); BASOPHILS % (AUTO) 0.5 % (0-2); EOSINOPHILS % (AUTO) 0.3 % (0-6); HEMATOCRIT 33.3 % (37.9-51.0); HEMOGLOBIN 10.8 g/dL (13.5-17.0); LYMPHOCYTES % (AUTO) 15.6 % (13-45); MEAN CORPUSCULAR HEMOGLOBIN 32.4 pg (27.0-33.4); MEAN CORPUSCULAR HGB CONC 32.6 g/dL (32.0-36.0); MEAN CORPUSCULAR VOLUME 99 fl (80-97); MONOCYTES % (AUTO) 11.4 % (3-13); PLATELET COUNT 189 10^3/uL (150-450); RED BLOOD COUNT 3.35 10^6/uL (4.35-5.55); RED CELL DISTRIBUTION WIDTH 15.4 % (11.5-14.0); SEGMENTED NEUTROPHILS % (AUTO) 72.2 % (42-78); TOTAL CELLS COUNTED % (AUTO) 100 %; WHITE BLOOD COUNT 5.2 10^3/uL (4.0-10.5)
--- NOTE | 2018-01-07 13:32 | RADIOLOGY REPORT (SQ) ---
EXAM DESCRIPTION: CHEST SINGLE VIEW COMPLETED DATE/TIME: 01/07/2018 1:13 pm REASON FOR STUDY: SOB COMPARISON: July 2017 EXAM PARAMETERS: NUMBER OF VIEWS: One view. TECHNIQUE: Single frontal radiographic view of the chest acquired. RADIATION DOSE: NA LIMITATIONS: None. FINDINGS: LUNGS AND PLEURA: The previously described fairly extensive pleuroparenchymal changes in t he left hemithorax are again identified. The densities appear more confluent on the current study an d I cannot exclude underlying atelectasis and or infiltrate with an associated pleural effusion. Cli nical correlation and followup is recommended. Chronic appearing changes are again identified in the right lung MEDIASTINUM AND HILAR STRUCTURES: No masses. Contour normal. HEART AND VASCULAR STRUCTURES: Cardiac silhouette is partially obscured but appears unchanged BONES: No acute findings. HARDWARE: None in the chest. OTHER: No other significant finding. IMPRESSION: The previously described fairly extensive pleural and parenchymal changes in the left he mithorax are again identified. These densities appear more confluent on the current study and I arlin ot exclude underlying atelectasis and or infiltrate with an associated pleural effusion. Clinical co rrelation and followup is recommended. Chronic appearing changes are again identified on the right. Other findings as noted above TECHNICAL DOCUMENTATION: JOB ID: [id number] [email or web address]- All Rights Reserved Reading location - IP/workstation name: [email or web address]
[2018-01-07] MEDS ORDERED: IPRATROPIUM/ALBUTEROL 0.5-2.5 MG/3 ML AMPUL NEB ONE (13:43)
[2018-01-07] MEDS ORDERED: CEFTRIAXONE INJ 1000 MG VIAL IV ONE (13:43)
[2018-01-07 13:55] LABS: ALANINE AMINOTRANSFERASE 66 U/L (21-72); ALBUMIN 3.6 g/dL (3.5-5.0); ALKALINE PHOSPHATASE 65 U/L (38-126); ASPARTATE AMINO TRANSFERASE 70 U/L (17-59); BILIRUBIN,DIRECT 0.3 mg/dL (0.0-0.4); BILIRUBIN,TOTAL 0.4 mg/dL (0.2-1.3); BLOOD UREA NITROGEN 24 mg/dL (7-20); CALCIUM 9.2 mg/dL (8.4-10.2); CHLORIDE 95 mmol/L (98-107); CREATINE KINASE 273 U/L (55-170); GLUCOSE 105 mg/dL (75-110); SODIUM 142.7 mmol/L (137-145); TOTAL PROTEIN 6.5 g/dL (6.3-8.2)
[2018-01-07 14:04] LABS: ANION GAP 6 (5-19)
[2018-01-07 14:06] LABS: CARBON DIOXIDE 42 mmol/L (22-30)
--- NOTE | 2018-01-07 14:08 | ER Document Report ---
ED General - General Chief Complaint: Shortness Of Breath Stated Complaint: DIFFICULTY BREATHING Time Seen by Provider: 01/07/18 13:43 Notes: Patient says that he has been having difficulty breathing with coughing and poor sputum production for several days, got worse yesterday and especially worse today. He has a history of COPD and is on home nebulizers, CPAP device, and oxygen at 3 L all the time. He has had swelling of his lower extremities and redness of his 4 months. No history of congestive heart failure. Does have a history of atrial fibrillation, however. Also hypertensive. No vomiting and no diarrhea. No fevers. TRAVEL OUTSIDE OF THE [place] IN LAST 30 DAYS: No - Related Data Allergies/Adverse Reactions: No Known Allergies Allergy (Verified 01/07/18 16:21) Past Medical History - Social History Smoking Status: Former Smoker - Stopped 5 or 6 years ago. Cigarette use (# per day): No Family History: Reviewed & Not Pertinent - Past Medical History Cardiac Medical History: Reports: Hx Atrial Fibrillation, Hx Hypertension Denies: Hx Congestive Heart Failure, Hx Coronary Artery Disease, Hx Heart Attack Pulmonary Medical History: Reports: Hx Asthma, Hx COPD Malignancy Medical History: Reports Hx Lung Cancer - in Remission Musculoskeltal Medical History: Reports Hx Arthritis - Immunizations Hx Pneumococcal Vaccination: 08/11/10 Review of Systems - Review of Systems Notes: REVIEW OF SYSTEMS: CONSTITUTIONAL : Denies fever. EENT: Denies eye, ear, nose or mouth or throat pain or other symptoms. CARDIOVASCULAR: Denies chest pain. Swelling of ankles. RESPIRATORY: See HPI.. GASTROINTESTINAL: Denies abdominal pain or nausea, vomiting, or diarrhea. GENITOURINARY: Denies difficulty or painful urinating, urinary frequency, blood in urine. MUSCULOSKELETAL: Denies back or neck pain. Denies joint pain or swelling. SKIN: Denies rash or skin lesions. Red feet 4 months. NEUROLOGICAL: Denies LOC or altered mental status. Denies headache. Denies sensory loss or motor deficits. ALL OTHER SYSTEMS REVIEWED AND NEGATIVE. Physical Exam - Vital signs Vitals: Pulse Ox 95 01/07/18 12:56 Interpretation: Hypoxic - O2 sats around 90% on 3 L of oxygen. - Notes Notes: PHYSICAL EXAMINATION: GENERAL: Well-appearing, in no acute distress. On oxygen. O2 sat around 90% on 3 L. HEAD: Atraumatic, normocephalic. EYES: Pupils equal round and reactive to light, extraocular movements intact. ENT: oropharynx clear without exudates. Moist mucous membranes. NECK: Normal range of motion, supple. LUNGS: Breath sounds with scattered rhonchi and a few rales and wheezes bilaterally. HEART: Irregularly irregular rhythm without murmurs. ABDOMEN: Soft, nontender. No guarding or rebound. No masses. BACK: No tenderness throughout entire back. EXTREMITIES: Normal range of motion without pain. +3 pitting edema pretibial bilateral. NEUROLOGICAL: Normal speech, normal gait. Normal sensory, motor, and reflex exams. Awake, alert, and oriented x3. Cranial nerves normal. PSYCH: Normal mood, normal affect. SKIN: Warm, dry, no rashes. Erythema of both feet, appearance of chronic dermatitis. Not especially warm to the touch. Course - Re-evaluation Re-evalutation: 01/07/18 14:08 Antibiotics of Rocephin 1 g were administered IV. DuoNeb provided. Plan to contact hospitalist for patient admission. 01/07/18 16:09 Patient's resuscitation status discussed with patient and with Dr. Almaraz, echometer engineer, and patient wishes to be a DNR. I agree with patient being DNR status. Jae Gaxiola MD - Vital Signs Vital signs: Temp Pulse Resp BP Pulse Ox 97.3 F 70 16 104/63 95 01/07/18 18:01 01/07/18 18:01 01/07/18 18:01 01/07/18 18:01 01/07/18 18:01 - Laboratory Result Diagrams: 01/07/18 13:00 01/07/18 13:00 Laboratory results interpreted by me: 01/07/18 01/07/18 01/07/18 13:00 13:00 13:00 RBC 3.35 L Hgb 10.8 L Hct 33.3 L MCV 99 H RDW 15.4 H Chloride 95 L Carbon Dioxide 42 H* BUN 24 H AST 70 H Creatine Kinase 273 H NT-Pro-B Natriuret Pep 1590 H - Diagnostic Test Radiology results interpreted by me: 01/07/18 19:08 Chest x-ray shows left pleural and parenchymal changes that have been present previously. Underlying atelectasis or infiltrate cannot be ruled out. - EKG Interpretation by Me Rhythm: A.Fib Voltage: Consistant with [facility] Critical Care Note - Critical Care Note Total time excluding time spent on procedures (mins): 40 Discharge - Discharge Clinical Impression: Respiratory insufficiency, Pneumonia, Hypoxia Condition: Poor Disposition: ADMITTED INPATIENT Admitting Provider: Hospitalist Unit Admitted: ICU
[2018-01-07 14:14] LABS: CREATINE KINASE MB 4.39 ng/mL (<4.55)
[2018-01-07 14:18] LABS: TROPONIN I 0.036 ng/mL
[2018-01-07] MEDS ORDERED: ACETAMINOPHEN 325 MG TABLET PO PRN (14:40)
[2018-01-07] MEDS ORDERED: PROMETHAZINE HCL 25 MG TABLET PO PRN (14:40)
--- NOTE | 2018-01-07 15:20 | PDOC H&P ---
History of Present Illness Admission Date/PCP: NATANAEL FRANCO MD History of Present Illness: GEORGIE CLARK is a 82 year old male patient with multiple comorbidities including CHF, COPD, hypertension, obesity, atrial fibrillation and history of pulmonary asbestosis. He presented with 4 day history of worsening shortness of precipitated slight exertion. Of note patient has long- standing chronic dyspnea and end-stage lung disease due to COPD and has been on oxygen / and he uses CPAP machine during the day as needed and regularly at night. Despite using his home breathing treatment and oxygen patient continues to have worsening shortness of breath so he came to ER for further help. His echocardiogram which is done in July 2017 shows reduced ejection fraction of 35%. Patient denies any fever, chest pain but he has dry hacking cough. No nausea, vomiting, diarrhea or urinary complaints. No headache, dizziness or blurry vision. Past Medical History Cardiac Medical History: Reports: Atrial Fibrillation, Hypertension Denies: Congestive Heart Failure, Coronary Artery Disease, Myocardial Infarction Pulmonary Medical History: Reports: Asthma, Chronic Obstructive Pulmonary Disease (COPD) Malignancy Medical History: Reports: Lung Cancer - in Remission Musculoskeltal Medical History: Reports: Arthritis Social History Smoking Status: Former Smoker Frequency of Alcohol Use: None Hx Recreational Drug Use: No Drugs: None Hx Prescription Drug Abuse: No - Advance Directive Resuscitation Status: Full Code Family History Family History: Reviewed & Not Pertinent, Arthritis, Hypertension Parental Family History Reviewed: Yes Children Family History Reviewed: Yes Sibling(s) Family History Reviewed.: Yes Medication/Allergy Home Medications: Apixaban [Eliquis 5 mg Tablet] 5 mg PO BID 07/18/17 Furosemide [Lasix 40 mg Tablet] 80 mg PO QAM 07/18/17 Potassium Chloride [Klor-Con M10] 10 meq PO BID 07/18/17 Prednisone [Deltasone 5 mg Tablet] 10 mg PO DAILY 07/18/17 Tiotropium [place] [Spiriva Handihaler 18 mcg/dose (30 Dose)] 1 cap IH DAILY 03/27 Albuterol Sulfate [Proventil 2 mg/5 mL Syrup 60 mL] 2 puff IH Q6 PRN 07/19/17 Budesonide/Formoterol Fumarate [Symbicort HFA 160-4.5 mcg Inhaler 6 gm] 2 puff IH DAILY 07/19/17 Calcium Carbonate/Vitamin D3 [Os-[place] 500-Vit D3 200 Caplet] 1 tab PO DAILY 07/19 Cholecalciferol (Vitamin D3) [Vitamin D3 1000 Unit Tablet] 1,000 unit PO DAILY 07/19/17 Guaifenesin [Mucinex] 600 mg PO BID 07/19/17 Leflunomide [Arava 20 mg Tablet] 20 mg PO DAILY 07/19/17 Multivit-Min/Iron Fum/Folic AC [Wjysw-Icqcwdj-Spicifkd Tablet] 1 each PO DAILY 07/19/17 [place]-3 Fatty Acids/Fish Oil [Fish Oil 1,000 mg Capsule] 1 each PO BID 07/19/17 Omeprazole 20 mg PO DAILY 07/19/17 Tamsulosin HCl [Flomax 0.4 mg Cap.sr] 0.4 mg PO DAILY 07/19/17 Acetylcysteine [Mucomist 10% Neb 400 mg/4 mL Vial] 400 mg NEB Q8 #90 vial.neb Amox Tr/Potassium Clavulanate [Augmentin "500" Tablet] 1 tab PO Q8 #21 tablet 07/23/17 Levalbuterol HCl [Xopenex Neb 1.25 mg/3 ml Ampul] 1.25 mg NEB Q8 #90 vial.neb Methylprednisolone [Medrol Dosepack (4 mg/Tab) 21 Tab/Dosepak] 4 mg PO ASDIR # 21 tab.ds.pk 07/23/17 Metoprolol Succinate [Toprol Xl 25 mg Tab.sr] 25 mg PO Q12 #60 tab.sr.24h Allergies/Adverse Reactions: No Known Allergies Allergy (Unverified 11/12/11 17:17) Review of Systems Constitutional: ABSENT: chills, fever(s), headache(s), weight gain, weight loss Cardiovascular: PRESENT: edema Respiratory: PRESENT: cough, dyspnea Gastrointestinal: ABSENT: abdominal pain, constipation, diarrhea, hematemesis, hematochezia, nausea, vomiting Neurological: ABSENT: abnormal gait, abnormal speech, confusion, dizziness, focal weakness, syncope Psychiatric: ABSENT: anxiety, depression, homidical ideation, suicidal ideation Physical Exam Vital Signs: Temp Pulse Resp BP Pulse Ox 20 104/81 91 L 01/07/18 13:07 01/07/18 14:01 01/07/18 14:50 Intake & Output 01/06/18 01/07/18 01/08/18 06:59 06:59 06:59 Weight 236.4 kg General appearance: PRESENT: severe distress Head exam: PRESENT: atraumatic, normocephalic Neck exam: PRESENT: JVD Respiratory exam: PRESENT: decreased breath sounds, wheezes Cardiovascular exam: PRESENT: irregular rhythm GI/Abdominal exam: PRESENT: normal bowel sounds, soft. ABSENT: distended, guarding, mass, organolmegaly, rebound, tenderness Extremities exam: PRESENT: other - +3 pitting edema Results Laboratory Results: 01/07/18 13:00 01/07/18 13:00 01/07/18 01/07/18 13:00 13:00 WBC 5.2 RBC 3.35 L Hgb 10.8 L Hct 33.3 L MCV 99 H MCH 32.4 MCHC 32.6 RDW 15.4 H Plt Count 189 Seg Neutrophils % 72.2 Lymphocytes % 15.6 Monocytes % 11.4 Eosinophils % 0.3 Basophils % 0.5 Absolute Neutrophils 3.7 Absolute Lymphocytes 0.8 Absolute Monocytes 0.6 Absolute Eosinophils 0.0 Absolute Basophils 0.0 Sodium 142.7 Potassium 4.0 Chloride 95 L Carbon Dioxide 42 H* Anion Gap 6 BUN 24 H Creatinine 0.88 Est GFR ( Amer) > 60 Est GFR (Non-Af Amer) > 60 Glucose 105 Calcium 9.2 Total Bilirubin 0.4 AST 70 H ALT 66 Alkaline Phosphatase 65 Total Protein 6.5 Albumin 3.6 01/07/18 01/07/18 13:00 13:00 Creatine Kinase 273 H CK-MB (CK-2) 4.39 Troponin I 0.036 NT-Pro-B Natriuret Pep 1590 H Impressions: Chest X-Ray 01/07/18 12:56 IMPRESSION: The previously described fairly extensive pleural and parenchymal changes in the left hemithorax are again identified. These densities appear more confluent on the current study and I cannot exclude underlying atelectasis and or infiltrate with an associated pleural effusion. Clinical correlation and followup is recommended. Chronic appearing changes are again identified on the right. Other findings as noted above Assessment & Plan - Diagnosis (1) Acute and chronic respiratory failure Qualifiers: Respiratory failure complication: hypoxia Qualified Code(s): J96.21 - Acute and chronic respiratory failure with hypoxia Is this a current diagnosis for this admission?: Yes Plan: Patient has been started on Solu-Medrol, Levaquin, supplemental oxygen, bronchodilator, BiPAP and incentive spirometry. (2) Acute on chronic systolic congestive heart failure, NYHA class 3 Is this a current diagnosis for this admission?: Yes Plan: Patient has been started on Lasix 40 mg IV every 8 hours, Coreg, lisinopril, digoxin. Echo in a.m. (3) Atrial fibrillation Qualifiers: Atrial fibrillation type: chronic Qualified Code(s): I48.2 - Chronic atrial fibrillation Is this a current diagnosis for this admission?: Yes Plan: Rate controlled. (4) COPD exacerbation Is this a current diagnosis for this admission?: Yes Plan: As #1 (5) Hypertension Qualifiers: Hypertension type: essential hypertension Qualified Code(s): I10 - Essential (primary) hypertension Is this a current diagnosis for this admission?: Yes Plan: Stable. Continue home medication - Time Time Spent: 30 to 50 Minutes - Inpatient Certification Medical Necessity: Need Close Monitoring Due to Risk of Patient Decompensation, Need For Continuous Telemetry Monitoring, Need for IV Antibiotics
[2018-01-07] MEDS ORDERED: FUROSEMIDE INJ/PF 100 MG/10 ML SDV IV ONE (15:30)
[2018-01-07] MEDS ORDERED: FUROSEMIDE INJ/PF 40 MG/4 ML SDV IV ONE (15:30)
[2018-01-07] MEDS ORDERED: CARVEDILOL 12.5 MG TABLET PO ONE (15:30)
[2018-01-07] MEDS ORDERED: METHYLPREDNISOLONE INJ 40 MG/1 ML SDV IV ONE (15:30)
[2018-01-07] MEDS ORDERED: DIGOXIN 0.125 MG TABLET PO ONE (15:30)
--- NOTE | 2018-01-07 16:39 | RADIOLOGY REPORT (SQ) ---
EXAM DESCRIPTION: CT CHEST WITHOUT COMPLETED DATE/TIME: 01/07/2018 3:56 pm REASON FOR STUDY: Recurrent COPD COMPARISON: 07/18/2017. TECHNIQUE: CT scan performed of the chest without intravenous contrast. Images reviewed with lung, soft tissue and bone windows. Reconstructed coronal and sagittal MPR images reviewed. All images st ored on PACS. All CT scanners at this facility use dose modulation, iterative reconstruction, and/or weight based d osing when appropriate to reduce radiation dose to as low as reasonably achievable (ALARA). [facility]: Dose Right [facility]: CareDose [facility]: Dose Right [facility]: Teradose 4D [facility]: Smart Contix RADIATION DOSE: CT Rad equipment meets quality standard of care and radiation dose reduction techniq ues were employed. CTDIvol: 17.5 mGy. DLP: 688 mGy-cm. mGy. LIMITATIONS: No technical limitations. FINDINGS: LUNGS AND PLEURA: Centrilobular emphysema. Calcified pleural plaques. Subsegmental areas of honeycombing in both lungs with relative sparing of the upper lobes. Stable bandlike scarring in the lingula. No effusions. HILAR AND MEDIASTINAL STRUCTURES: No identified masses or abnormal nodes. No obvious aneurysm. HEART AND VASCULAR STRUCTURES: Cardiomegaly. No aneurysm. No pericardial effusion. UPPER ABDOMEN: Gallstones. Hiatal hernia. Limited exam. THYROID AND OTHER SOFT TISSUES: No masses. No adenopathy. BONES: No acute findings. HARDWARE: None in the chest. OTHER: No other significant findings. IMPRESSION: COPD. Prior asbestos exposure. Stable areas of pulmonary fibrosis. No evidence of sup erimposed pneumonia. TECHNICAL DOCUMENTATION: JOB ID: [id number] Quality ID # [id number]: Final reports with documentation of one or more dose reduction techniques (e.g., Au tomated exposure control, adjustment of the mA and/or kV according to patient size, use of iterative reconstruction technique) 2010 [employer]- All Rights Reserved Reading location - IP/workstation name: [email or web address]
--- NOTE | 2018-01-07 16:46 | PDOC CONSULTATION ---
Consultation Consult Date: 01/07/18 Attending physician:: GILBERTO TOPETE Consult reason:: resp failure,copd,asbetosis,radha,obesity -hypovetilation syndrome,chf History of Present Illness Admission Date/PCP: 01/07/18 14:53 NATANAEL FRANCO MD History of Present Illness: GEORGIE CLARK is a 82 year old male,presented to the emergency room after 2 days of cough productive of yellow-green sputum and increasing dyspnea. 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 Past Medical History Cardiac Medical History: Reports: Atrial Fibrillation, Hypertension Denies: Congestive Heart Failure, Coronary Artery Disease, Myocardial Infarction Pulmonary Medical History: Reports: Asthma, Chronic Obstructive Pulmonary Disease (COPD) Neurological Medical History: Denies: Multiple Sclerosis, Seizures Endocrine Medical History: Reports: Obesity Renal/ Medical History: Reports: Nephrolithiasis, Other - Urinary hesitancy and frequency Malignancy Medical History: Reports: Lung Cancer - in Remission GI Medical History: Denies: Cirrhosis, Ulcerative Colitis Musculoskeltal Medical History: Reports: Arthritis Skin Medical History: Reports: Other - History of basal cell skin cancers Denies: Eczema, Psoriasis Psychiatric Medical History: Reports: Depression Traumatic Medical History: Denies: Gunshot Wound, Traumatic Brain Injury Hematology: Denies: Hemophilia, Sickle Cell Disease Infectious Medical History: Denies: HIV Social History Information Source: Patient, [facility] Records 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 Cigarettes Packs Per Day: 2 Number of Years Smokin Passive smoke exposure as: Both Frequency of Alcohol Use: None Hx Recreational Drug Use: No Drugs: None Hx Prescription Drug Abuse: No Do you have pets?: Yes Have you had any respiratory illnesses as a child?: No Have you been exposed to any sick contacts recently?: No Have you had any recent respiratory illnesses?: No Have you travelled outside of [place] in the past 12 months?: No - Advance Directive Resuscitation Status: Full Code Family History Family History: CAD, COPD, Malignancy Parental Family History Reviewed: Yes Children Family History Reviewed: Yes Sibling(s) Family History Reviewed.: Yes Medication/Allergy Home Medications: Albuterol Sulfate [Albuterol Sulfate 2.5mg/3 mL] 1 vial NEB QIDP PRN 01/07/18 Albuterol Sulfate [Proventil Hfa] 2 puff IH Q4HP PRN 01/07/18 Apixaban [Eliquis 5 mg Tablet] 5 mg PO BID 01/07/18 Budesonide/Formoterol Fumarate [Symbicort HFA 80-4.5 mcg Inhaler 6.9 gm] 2 puff IH Q12 01/07/18 Calcium Carbonate/Vitamin D3 [Os-Robles 500-Vit D3 200 Caplet] 1 tab PO DAILY 01/07 Cholecalciferol (Vitamin D3) [Vitamin D3 1000 Unit Tablet] 1,000 unit PO DAILY 01/07/18 Furosemide [Lasix 40 mg Tablet] 80 mg PO DAILY 01/07/18 Guaifenesin [Mucinex] 600 mg PO BID 01/07/18 Leflunomide [Arava 20 mg Tablet] 20 mg PO DAILY 01/07/18 Metoprolol Succinate [Toprol Xl 25 mg Tab.sr] 25 mg PO Q12 01/07/18 Multivitamin with Iron [One Daily Multivitamin] 1 tab PO DAILY 01/07/18 [place]ball-3 Acid Ethyl Esters [Lovaza 1 gm Capsule] 1 gm PO BID 01/07/18 Omeprazole 20 mg PO DAILY 01/07/18 Potassium Chloride [Klor-Con 10 Meq Tablet.sa] 10 meq PO BID 01/07/18 Tamsulosin HCl [Flomax 0.4 mg Cap.sr] 0.4 mg PO DAILY 01/07/18 Tiotropium [place] [Spiriva Handihaler 18 mcg/dose (30 Dose)] 1 cap IH DAILY Allergies/Adverse Reactions: No Known Allergies Allergy (Verified 01/07/18 16:21) Review of Systems Constitutional: ABSENT: anorexia, headache(s), night sweats Eyes: ABSENT: visual disturbances Ears: ABSENT: hearing changes Nose, Mouth, and Throat: ABSENT: sore throat Cardiovascular: PRESENT: dyspnea on exertion, edema, orthropnea. ABSENT: palpitations Respiratory: PRESENT: cough, dyspnea, sputum. ABSENT: hemoptysis Gastrointestinal: ABSENT: abdominal pain, bloating, coffee ground emesis, dysphagia, heartburn, hematemesis, hematochezia, melena Genitourinary: PRESENT: difficulty urinating. ABSENT: dysuria, hematuria Musculoskeletal: ABSENT: deformity, joint swelling Integumentary: ABSENT: pruritus, rash Neurological: ABSENT: abnormal gait, abnormal movements, abnormal speech, confusion, focal weakness, frequent falls, lack of coordination, memory loss Psychiatric: ABSENT: hallucinations, homidical ideation, suicidal ideation Endocrine: ABSENT: cold intolerance, heat intolerance Hematologic/Lymphatic: ABSENT: easy bruising Allergic/Immunologic: PRESENT: seasonal rhinorrhea Physical Exam Vital Signs: Temp Pulse Resp BP Pulse Ox 15 103/78 91 L 01/07/18 16:01 01/07/18 16:00 01/07/18 15:01 General appearance: PRESENT: no acute distress, cooperative, disheveled, morbidly obese Head exam: PRESENT: atraumatic, normocephalic Eye exam: PRESENT: conjunctiva pale, EOMI, periorbital swelling, PERRLA. ABSENT : nystagmus, scleral icterus Mouth exam: PRESENT: dry mucosa, neck supple, tongue midline Neck exam: ABSENT: carotid bruit, JVD, lymphadenopathy, thyromegaly, tracheal deviation, tracheostomy Respiratory exam: PRESENT: decreased breath sounds, prolonged expiratory phas, rales, rhonchi, wheezes. ABSENT: retraction, stridor, tachypnea Cardiovascular exam: PRESENT: irregular rhythm, +S1, +S2, tachycardia Pulses: PRESENT: normal radial pulses GI/Abdominal exam: PRESENT: distended, normal bowel sounds, soft Extremities exam: PRESENT: pedal edema, +2 edema. ABSENT: calf tenderness, clubbing Musculoskeletal exam: ABSENT: deformity, dislocation Neurological exam: PRESENT: alert, awake Psychiatric exam: PRESENT: normal mood Skin exam: PRESENT: dry, warm Results Laboratory Results: 01/07/18 15:10 Carbonic Acid Cancelled HCO3/H2CO3 Ratio Cancelled ABG pH Cancelled ABG pCO2 Cancelled ABG pO2 Cancelled ABG HCO3 Cancelled ABG O2 Saturation Cancelled ABG Base Excess Cancelled FiO2 Cancelled Impressions: Chest X-Ray 01/07/18 12:56 IMPRESSION: The previously described fairly extensive pleural and parenchymal changes in the left hemithorax are again identified. These densities appear more confluent on the current study and I cannot exclude underlying atelectasis and or infiltrate with an associated pleural effusion. Clinical correlation and followup is recommended. Chronic appearing changes are again identified on the right. Other findings as noted above Assessment & Plan - Diagnosis (1) Acute and chronic respiratory failure Qualifiers: Respiratory failure complication: hypoxia Qualified Code(s): J96.21 - Acute and chronic respiratory failure with hypoxia Is this a current diagnosis for this admission?: Yes Plan: laba+lama+mucolytic (2) Acute on chronic systolic congestive heart failure, NYHA class 3 Is this a current diagnosis for this admission?: Yes (3) Atrial fibrillation Qualifiers: Atrial fibrillation type: chronic Qualified Code(s): I48.2 - Chronic atrial fibrillation Is this a current diagnosis for this admission?: Yes Plan: stable at this time (4) COPD exacerbation Is this a current diagnosis for this admission?: Yes Plan: Chest physiotherapy mucolytic's long-acting beta agonist long-acting muscarinic agents will hold inhaled corticosteroids at this time.
[2018-01-07] MEDS: IPRATROPIUM/ALBUTEROL 0.5-2.5 MG/3 ML AMPUL NEB SCH ×3 (16:48→23:53)
[2018-01-07 16:51] LABS: ARTERIAL BLOOD BASE EXCESS 9.5 mmol/L; ARTERIAL BLOOD FIO2 5L; ARTERIAL BLOOD H2CO3 1.94 mmol/L (1.05-1.35); ARTERIAL BLOOD HCO3 36.6 mmol/L (20-26); ARTERIAL BLOOD O2 SATURATION 97.8 % (94-98); ARTERIAL BLOOD PCO2 64.3 mmHg (35-45); ARTERIAL BLOOD PH 7.37 (7.35-7.45); ARTERIAL BLOOD PO2 109.9 mmHg (80-100); ARTERIAL BLOOD TOTAL CO2 38.6 mmol/L (23-27)
[2018-01-07 19:15] LABS: APPEARANCE,URINE CLEAR; BILIRUBIN,URINE NEGATIVE (NEGATIVE); COLOR,URINE YELLOW; GLUCOSE, URINE NEGATIVE (NEGATIVE); KETONES,URINE NEGATIVE (NEGATIVE); LEUKOCYTE ESTERASE,URINE NEGATIVE (NEGATIVE); NITRITE,URINE NEGATIVE (NEGATIVE); PROTEIN,URINE NEGATIVE (NEGATIVE); URINE SPECIFIC GRAVITY 1.008; UROBILINOGEN,URINE NEGATIVE mg/dL (<2.0)
[2018-01-07] MEDS: ACETYLCYSTEINE 20% SOLN 800 MG/4 ML VIAL.NEB NEB SCH (20:04)
[2018-01-07] MEDS: FUROSEMIDE INJ/PF 40 MG/4 ML SDV IV SCH (21:18)
[2018-01-07] MEDS: METHYLPREDNISOLONE INJ 40 MG/1 ML SDV IV SCH (21:18)
[2018-01-07] MEDS: HEPARIN SOD (PORCINE) 5,000 UNIT/ML 1 ML SYRINGE SUBCUT SCH (21:18)
[2018-01-07] MEDS: BENZONATATE 100 MG CAPSULE PO SCH (21:18)
--- NOTE | 2018-01-07 23:08 | EKG REPORT ---
SEVERITY:- ABNORMAL ECG - ATRIAL FIBRILLATION, V-RATE 63-132 LAD, CONSIDER LAFB OR INFERIOR INFARCT LOW VOLTAGE IN FRONTAL LEADS BORDERLINE R WAVE PROGRESSION, ANTERIOR LEADS NONSPECIFIC T ABNORMALITIES, LATERAL LEADS : Confirmed by: Courtney Mullen 07-Jan-2018 23:08:10
[2018-01-08] MEDS: IPRATROPIUM/ALBUTEROL 0.5-2.5 MG/3 ML AMPUL NEB SCH ×2 (03:06→08:18)
[2018-01-08 05:06] LABS: ABSOLUTE LYMPHOCYTES (AUTO) 0.4 10^3/uL (0.5-4.7); ABSOLUTE MONOCYTES (AUTO) 0.2 10^3/uL (0.1-1.4); ABSOLUTE NEUT (AUTO) 5.3 10^3/uL (1.7-8.2); BASOPHILS % (AUTO) 0.2 % (0-2); LYMPHOCYTES % (AUTO) 6.9 % (13-45); MEAN CORPUSCULAR HEMOGLOBIN 32.9 pg (27.0-33.4); MEAN CORPUSCULAR HGB CONC 33.2 g/dL (32.0-36.0); MEAN CORPUSCULAR VOLUME 99 fl (80-97); MONOCYTES % (AUTO) 3.4 % (3-13); PLATELET COUNT 177 10^3/uL (150-450); RED BLOOD COUNT 3.33 10^6/uL (4.35-5.55); RED CELL DISTRIBUTION WIDTH 15.3 % (11.5-14.0); SEGMENTED NEUTROPHILS % (AUTO) 89.5 % (42-78); TOTAL CELLS COUNTED % (AUTO) 100 %; WHITE BLOOD COUNT 5.9 10^3/uL (4.0-10.5)
[2018-01-08] MEDS: BENZONATATE 100 MG CAPSULE PO SCH (05:31)
[2018-01-08] MEDS: HEPARIN SOD (PORCINE) 5,000 UNIT/ML 1 ML SYRINGE SUBCUT SCH (05:31)
[2018-01-08] MEDS: FUROSEMIDE INJ/PF 40 MG/4 ML SDV IV SCH ×2 (05:31→22:03)
[2018-01-08] MEDS: METHYLPREDNISOLONE INJ 40 MG/1 ML SDV IV SCH (05:31)
[2018-01-08 05:39] LABS: ALANINE AMINOTRANSFERASE 58 U/L (21-72); ALBUMIN 3.5 g/dL (3.5-5.0); ALKALINE PHOSPHATASE 67 U/L (38-126); ASPARTATE AMINO TRANSFERASE 64 U/L (17-59); BILIRUBIN,DIRECT 0.4 mg/dL (0.0-0.4); BILIRUBIN,TOTAL 0.4 mg/dL (0.2-1.3); BLOOD UREA NITROGEN 23 mg/dL (7-20); CALCIUM 8.5 mg/dL (8.4-10.2); CHLORIDE 94 mmol/L (98-107); GLUCOSE 135 mg/dL (75-110); POTASSIUM 4.1 mmol/L (3.6-5.0); SODIUM 145.2 mmol/L (137-145); TOTAL PROTEIN 6.4 g/dL (6.3-8.2)
[2018-01-08 05:53] LABS: ANION GAP 8 (5-19)
[2018-01-08 05:54] LABS: CARBON DIOXIDE 43 mmol/L (22-30)
[2018-01-08 05:58] LABS: ARTERIAL BLOOD BASE EXCESS 10.7 mmol/L; ARTERIAL BLOOD H2CO3 1.79 mmol/L (1.05-1.35); ARTERIAL BLOOD HCO3 37.2 mmol/L (20-26); ARTERIAL BLOOD O2 SATURATION 97.7 % (94-98); ARTERIAL BLOOD PCO2 59.6 mmHg (35-45); ARTERIAL BLOOD PH 7.41 (7.35-7.45); ARTERIAL BLOOD PO2 103.7 mmHg (80-100)
[2018-01-08 05:59] LABS: ARTERIAL BLOOD FIO2 35%
[2018-01-08] MEDS: ACETYLCYSTEINE 20% SOLN 800 MG/4 ML VIAL.NEB NEB SCH ×2 (08:18→19:51)
--- NOTE | 2018-01-08 08:58 | RADIOLOGY REPORT (SQ) ---
EXAM DESCRIPTION: CHEST SINGLE VIEW COMPLETED DATE/TIME: 01/08/2018 8:38 am REASON FOR STUDY: resp failure COMPARISON: CT chest 01/07/2018, 03/22/2017 Chest films 11/12/2011, 01/07/2018 EXAM PARAMETERS: NUMBER OF VIEWS: One view. TECHNIQUE: Single frontal radiographic view of the chest acquired. RADIATION DOSE: NA LIMITATIONS: None. FINDINGS: LUNGS AND PLEURA: Chronic calcific pleural plaques bilaterally. Stable increased interstitial markings throughout the mid and lower lungs bilaterally. There is questionable pleural thickening on the left, in the lateral costophrenic sulcus region likel y artifact from slight EPSTEIN rotation. No pneumothorax. MEDIASTINUM AND HILAR STRUCTURES: No masses. Contour normal. HEART AND VASCULAR STRUCTURES: Moderate cardiomegaly, stable BONES: Old left lateral healed rib fracture HARDWARE: None in the chest. OTHER: No other significant finding. IMPRESSION: No acute changes TECHNICAL DOCUMENTATION: JOB ID: [id number] [employer]- All Rights Reserved Reading location - IP/workstation name: [email or web address]
[2018-01-08] MEDS ORDERED: BENZONATATE 100 MG CAPSULE PO PRN (09:24)
[2018-01-08] MEDS ORDERED: MULTIVITAMIN WITH IRON PO SCH (10:00)
[2018-01-08] MEDS ORDERED: LOSARTAN POTASSIUM 50 MG TABLET PO SCH (10:00)
[2018-01-08] MEDS ORDERED: LEVOFLOXACIN 500 MG/D5W RTU 500 MG/100 ML RTUPB IV SCH (10:00)
[2018-01-08] MEDS ORDERED: GUAIFENESIN 600 MG TABLET.SA PO SCH (10:00)
[2018-01-08] MEDS ORDERED: (PENDING PHARMACY ID) (Calcium Carbonate/Vitamin D3 [Os-Cal 500-Vit D3 200 Caplet] 1 TAB) PO SCH (10:00)
[2018-01-08] MEDS ORDERED: (PENDING PHARMACY ID) (Guaifenesin [Mucinex] 600 MG) PO SCH (10:00)
[2018-01-08] MEDS: OMEGA-3 ACID ETHYL ESTERS 1 GM CAPSULE PO SCH ×2 (10:10→18:22)
[2018-01-08] MEDS: APIXABAN 5 MG TABLET PO SCH ×2 (10:10→18:22)
[2018-01-08] MEDS: CALCIUM CARBONATE 250 MG/VITAMIN D3 125 UNIT TABLET PO SCH (10:12)
[2018-01-08] MEDS: METOPROLOL SUCCINATE 25 MG TAB.SR.24H PO SCH ×2 (10:13→22:03)
[2018-01-08] MEDS: POTASSIUM CHLORIDE 10 MEQ TABLET.SA PO SCH ×2 (10:13→18:22)
[2018-01-08] MEDS: CHOLECALCIFEROL (D3) 1,000 UNIT TABLET PO SCH (10:13)
--- NOTE | 2018-01-08 10:25 | PDOC PROGRESS REPORT ---
Subjective Progress Note for:: 01/08/18 Subjective:: A LITTLE BETTER EASIER TO COUGH OUT PHLEGM Reason For Visit: ACUTE ON CHRONIC RESPIRATORY FAILURE, COPD Physical Exam Vital Signs: Temp Pulse Resp BP Pulse Ox 98.1 F 86 21 H 91/62 L 96 01/08/18 07:38 01/08/18 08:18 01/08/18 08:18 01/08/18 07:38 01/08/18 08:18 Intake & Output 01/07/18 01/08/18 01/09/18 06:59 06:59 06:59 Intake Total 265 Output Total 1550 Balance -1285 Weight 106.8 kg General appearance: PRESENT: no acute distress, cooperative, disheveled, morbidly obese Head exam: PRESENT: atraumatic Eye exam: PRESENT: conjunctiva pale, EOMI. ABSENT: nystagmus, periorbital swelling, scleral icterus Mouth exam: PRESENT: dry mucosa, neck supple, tongue midline Neck exam: ABSENT: carotid bruit, JVD, lymphadenopathy, thyromegaly, tracheal deviation, tracheostomy Respiratory exam: PRESENT: decreased breath sounds, prolonged expiratory phas, rhonchi, unlabored. ABSENT: rales, retraction, stridor, tachypnea Cardiovascular exam: PRESENT: RRR, +S1, +S2 Pulses: PRESENT: normal radial pulses GI/Abdominal exam: PRESENT: normal bowel sounds, soft Extremities exam: PRESENT: pedal edema, +2 edema. ABSENT: calf tenderness, clubbing Musculoskeletal exam: ABSENT: deformity, dislocation Neurological exam: PRESENT: awake, oriented to person, oriented to place, oriented to time Psychiatric exam: PRESENT: flat affect Skin exam: PRESENT: dry, warm Results Laboratory Results: 01/08/18 04:23 01/08/18 04:23 01/07/18 01/07/18 01/07/18 15:10 16:35 18:56 WBC RBC Hgb Hct MCV MCH MCHC RDW Plt Count Seg Neutrophils % Lymphocytes % Monocytes % Eosinophils % Basophils % Absolute Neutrophils Absolute Lymphocytes Absolute Monocytes Absolute Eosinophils Absolute Basophils Carbonic Acid Cancelled 1.94 H HCO3/H2CO3 Ratio Cancelled 18:1 ABG pH Cancelled 7.37 ABG pCO2 Cancelled 64.3 H ABG pO2 Cancelled 109.9 H ABG HCO3 Cancelled 36.6 H ABG O2 Saturation Cancelled 97.8 ABG Base Excess Cancelled 9.5 FiO2 Cancelled 5L Sodium Potassium Chloride Carbon Dioxide Anion Gap BUN Creatinine Est GFR ( Amer) Est GFR (Non-Af Amer) Glucose Calcium Phosphorus Magnesium Total Bilirubin AST ALT Alkaline Phosphatase Total Protein Albumin TSH Urine Color YELLOW Urine Appearance CLEAR Urine pH 6.0 Ur Specific [place] 1.008 Urine Protein NEGATIVE Urine Glucose (UA) NEGATIVE Urine Ketones NEGATIVE Urine Blood NEGATIVE Urine Nitrite NEGATIVE Ur Leukocyte Esterase NEGATIVE Urine WBC (Auto) 1 Urine RBC (Auto) 1 01/08/18 01/08/18 01/08/18 04:23 04:23 04:23 WBC 5.9 RBC 3.33 L Hgb 11.0 L Hct 33.0 L MCV 99 H MCH 32.9 MCHC 33.2 RDW 15.3 H Plt Count 177 Seg Neutrophils % 89.5 H Lymphocytes % 6.9 L Monocytes % 3.4 Eosinophils % 0.0 Basophils % 0.2 Absolute Neutrophils 5.3 Absolute Lymphocytes 0.4 L Absolute Monocytes 0.2 Absolute Eosinophils 0.0 Absolute Basophils 0.0 Carbonic Acid HCO3/H2CO3 Ratio ABG pH ABG pCO2 ABG pO2 ABG HCO3 ABG O2 Saturation ABG Base Excess FiO2 Sodium 145.2 H Potassium 4.1 Chloride 94 L Carbon Dioxide 43 H* Anion Gap 8 BUN 23 H Creatinine 0.84 Est GFR ( Amer) > 60 Est GFR (Non-Af Amer) > 60 Glucose 135 H Calcium 8.5 Phosphorus 4.0 Magnesium 1.9 Total Bilirubin 0.4 AST 64 H ALT 58 Alkaline Phosphatase 67 Total Protein 6.4 Albumin 3.5 TSH 18.20 H Urine Color Urine Appearance Urine pH Ur Specific [place] Urine Protein Urine Glucose (UA) Urine Ketones Urine Blood Urine Nitrite Ur Leukocyte Esterase Urine WBC (Auto) Urine RBC (Auto) 01/08/18 05:45 WBC RBC Hgb Hct MCV MCH MCHC RDW Plt Count Seg Neutrophils % Lymphocytes % Monocytes % Eosinophils % Basophils % Absolute Neutrophils Absolute Lymphocytes Absolute Monocytes Absolute Eosinophils Absolute Basophils Carbonic Acid 1.79 H HCO3/H2CO3 Ratio 20:1 ABG pH 7.41 ABG pCO2 59.6 H ABG pO2 103.7 H ABG HCO3 37.2 H ABG O2 Saturation 97.7 ABG Base Excess 10.7 FiO2 35% Sodium Potassium Chloride Carbon Dioxide Anion Gap BUN Creatinine Est GFR ( Amer) Est GFR (Non-Af Amer) Glucose Calcium Phosphorus Magnesium Total Bilirubin AST ALT Alkaline Phosphatase Total Protein Albumin TSH Urine Color Urine Appearance Urine pH Ur Specific [place] Urine Protein Urine Glucose (UA) Urine Ketones Urine Blood Urine Nitrite Ur Leukocyte Esterase Urine WBC (Auto) Urine RBC (Auto) Impressions: Chest CT 01/07/18 00:00 IMPRESSION: COPD. Prior asbestos exposure. Stable areas of pulmonary fibrosis. No evidence of superimposed pneumonia. Chest X-Ray 01/08/18 06:00 IMPRESSION: No acute changes Assessment & Plan - Diagnosis (1) Acute and chronic respiratory failure Qualifiers: Respiratory failure complication: hypoxia Qualified Code(s): J96.21 - Acute and chronic respiratory failure with hypoxia Is this a current diagnosis for this admission?: Yes Plan: A LITTLE BETTER (2) Acute on chronic systolic congestive heart failure, NYHA class 3 Is this a current diagnosis for this admission?: Yes (3) Atrial fibrillation Qualifiers: Atrial fibrillation type: chronic Qualified Code(s): I48.2 - Chronic atrial fibrillation Is this a current diagnosis for this admission?: Yes Plan: stable at this time (4) COPD exacerbation Is this a current diagnosis for this admission?: Yes Plan: Chest physiotherapy mucolytic's long-acting beta agonist long-acting muscarinic agents will hold inhaled corticosteroids at this time.
[2018-01-08] MEDS: TIOTROPIUM BROMIDE DPI 5 CAP/KIT (18 MCG/CAP) IH SCH (10:46)
[2018-01-08] MEDS: BUDESONIDE/FORMOTEROL 80-4.5 MCG 60 PUFF/6.9 GM MDI IH SCH ×2 (10:46→22:03)
[2018-01-08] MEDS: LEFLUNOMIDE 20 MG TABLET PO SCH (10:46)
--- NOTE | 2018-01-08 11:20 | PROGRESS NOTE E ---
Progress Note NAME: GEORGIE CLARK : 1935 AGE: 82Y DATE: 01/08/2018 ROOM: 322 SUBJECTIVE: The patient is lying in bed. He states that his breathing is much improved in comparison to yesterday. The patient has had a strong cough and has been producing some dark yellow sputum. The patient denies any nausea, vomiting, diarrhea. No dizziness, chest pain. No fevers, chills. The patient has been afebrile. His blood pressures have been a little labile, and the patient does not voice any other concerns at this time. REVIEW OF SYSTEMS: The rest of the review of systems is negative. MEDICATIONS: Medications have been reviewed. OBJECTIVE: GENERAL: The patient is an 82-year-old male who is awake, alert, and oriented to person, place, time, and situation. He is verbal, conversational, does not appear to be in any acute distress. VITAL SIGNS: As follows: Temperature is 98.1, pulse 86, respirations 21, blood pressure is 91/71, oxygen saturation is 95% on 2 L nasal cannula. SKIN: Extremely pale, dry. No rash, not diaphoretic. HEENT: Pupils are reactive. The patient does have bilateral periorbital edema with JVP to the right clavicle. CARDIOVASCULAR: Heart is irregularly irregular. There is no rub. CHEST: Rhonchorous throughout the upper lung burr, symmetrical, not labored at this time. ABDOMEN: Obese, soft, nontender. EXTREMITIES: No clubbing, cyanosis, with chronic dependent edema of the lower extremities, not pitting at this time. PSYCHIATRIC: Appropriate affect. Pleasant mood. DIAGNOSTICS: Lab values are as follows. Hematology obtained on 01/08/2018: WBCs are 5.9, hemoglobin is 11.0, hematocrit is 33.0, platelet count is 177,000. ABG obtained on 01/08/2018: His pH is 7.41, PCO2 is 59.6, PO2 is 103, bicarb 37. Chemistry obtained on 01/08/2018: Sodium is 145, potassium 4.1, chloride 94, carbon dioxide 43, BUN is 23, creatinine is 0.84, glucose 135, calcium is 8.5, phosphorus 4.0, magnesium is 1.9. Bilirubin 0.4, AST 54, ALT is 58, alk phos 67, total protein 6.4, albumin 3.5. TSH is 18.2. IMPRESSION AND PLAN: 1. CHRONIC OBSTRUCTIVE PULMONARY DISEASE EXACERBATION. Will continue current regimen. The patient is being followed by Dr. Almaraz as well. Will transition steroids to p.o. given the patient's improvement and tolerance and begin to wean O2 and follow. The patient is making a decent amount of sputum, so will increase Mucinex. Follow. 2. ACUTE ON CHRONIC HYPOXEMIC AND HYPERCAPNIC RESPIRATORY FAILURE. Will continue BiPAP support. Encourage incentive spirometry as well as flutter valve. Transition to oral Levaquin. 3. ACUTE ON CHRONIC SYSTOLIC CONGESTIVE HEART FAILURE. Will decrease the patient's Lasix to every 12 hours. He has made significant improvement to include patient's home medications. A repeat echo is pending hold ARB for now given the patient's hypotension. 4. ATRIAL FIBRILLATION. The patient is rate controlled at this time. , but will Will follow closely. 5. HYPERTENSION. The patient is actually on the hypotensive side. Will hold ARB for now but continue beta sivan. Really needs manual checks only. 6. TRANSAMINITIS, MOST LIKELY HAS UNDERLYING FATTY LIVER. Will follow. 7. ABNORMAL TSH. Will obtain T4. If depressed will start hormone replacement. DISPOSITION: THE PATIENT IS A DO NOT INTUBATE. Pending the patient's symptomatology and diagnostic findings, will re-evaluate in the a.m. Time spent on this followup, including assessment/plan, physical examination, patient education, review of records, is 35 minutes. DICTATING PHYSICIAN: MINA HARVEY [id number] PHY#: [id number] ID: [id number] JOB#: [id number] ACCT: [id number] cc: > [facility]
[2018-01-08] MEDS: MULTIVITAMIN TABLET PO SCH (13:17)
[2018-01-08] MEDS: PREDNISONE 20 MG TABLET PO SCH ×2 (13:17→18:22)
[2018-01-08] MEDS: TAMSULOSIN HCL 0.4 MG CAP.SR.24H PO SCH (16:22)
--- NOTE | 2018-01-08 17:46 | XCELERA REPORT ---
[address] [address] Transthoracic Echocardiogram Report Name: GEORGIE CALRK Age: 82 yrs Gender: Male : 1935 Patient Status: Inpatient Patient Location: [address] [place] [address] Study Date: 01/08/2018 09:18 AM Reason For Study: CHF Ordering Physician: GILBERTO TOPETE Performed By: Renee Olea Interpretation Summary Difficult and sub-optimal study.cannot assess wall motion of LVEF.Cannot assess valvular disease.Recomment [facility]GA for RVEF and LVEF. Difficult and sub-optimal study.cannot assess wall motion of LVEF.Cannot assess valvular disease.Recomment [facility]GA for RVEF and LVEF. MMode/2D Measurements & Calculations RVDd: 4.3 cm LVIDd: 6.1 cm FS: 30.8 % Ao root diam: 3.4 cm IVSd: 1.2 cm LVIDs: 4.2 cm EDV(Teich): 187.2 ml Ao root area: 9.0 cm2 LVPWd: 1.2 cm ESV(Teich): 79.5 ml LA dimension: 4.5 cm EF(Teich): 57.5 % Doppler Measurements & Calculations MV E max katelyn: MV dec time: Ao V2 max: LV V1 max P.6 cm/sec 0.15 sec 108.1 cm/sec 2.5 mmHg Ao max PG: LV V1 max: 4.7 mmHg 78.3 cm/sec TV V2 max: PA V2 max: 230.4 cm/sec 103.4 cm/sec TV max PG: PA max P.2 mmHg 4.3 mmHg : GILBERTO TOPETE > Jalyn Oliver
[2018-01-08] MEDS: LEVOTHYROXINE SODIUM 0.05 MG TABLET PO ONE ×2 (18:25→18:59)
[2018-01-08] MEDS: IPRATROPIUM/ALBUTEROL 0.5-2.5 MG/3 ML AMPUL NEB PRN (19:51)
[2018-01-08] MEDS: GUAIFENESIN 600 MG TABLET.SA PO SCH (22:03)
[2018-01-09 05:15] LABS: ABSOLUTE LYMPHOCYTES (AUTO) 0.6 10^3/uL (0.5-4.7); ABSOLUTE MONOCYTES (AUTO) 0.6 10^3/uL (0.1-1.4); ABSOLUTE NEUT (AUTO) 6.5 10^3/uL (1.7-8.2); BASOPHILS % (AUTO) 0.3 % (0-2); EOSINOPHILS % (AUTO) 0.1 % (0-6); HEMATOCRIT 31.5 % (37.9-51.0); HEMOGLOBIN 10.4 g/dL (13.5-17.0); LYMPHOCYTES % (AUTO) 8.1 % (13-45); MEAN CORPUSCULAR HEMOGLOBIN 32.2 pg (27.0-33.4); MEAN CORPUSCULAR VOLUME 97 fl (80-97); MONOCYTES % (AUTO) 7.3 % (3-13); PLATELET COUNT 185 10^3/uL (150-450); RED BLOOD COUNT 3.24 10^6/uL (4.35-5.55); RED CELL DISTRIBUTION WIDTH 15.3 % (11.5-14.0); SEGMENTED NEUTROPHILS % (AUTO) 84.2 % (42-78); TOTAL CELLS COUNTED % (AUTO) 100 %; WHITE BLOOD COUNT 7.7 10^3/uL (4.0-10.5)
[2018-01-09 05:31] LABS: ALANINE AMINOTRANSFERASE 48 U/L (21-72); ALBUMIN 3.3 g/dL (3.5-5.0); ALKALINE PHOSPHATASE 63 U/L (38-126); ASPARTATE AMINO TRANSFERASE 62 U/L (17-59); BILIRUBIN,DIRECT 0.4 mg/dL (0.0-0.4); BILIRUBIN,TOTAL 0.4 mg/dL (0.2-1.3); BLOOD UREA NITROGEN 32 mg/dL (7-20); CALCIUM 8.6 mg/dL (8.4-10.2); CHLORIDE 93 mmol/L (98-107); GLUCOSE 118 mg/dL (75-110); POTASSIUM 4.1 mmol/L (3.6-5.0); SODIUM 143.3 mmol/L (137-145); TOTAL PROTEIN 6.1 g/dL (6.3-8.2)
[2018-01-09] MEDS: LANSOPRAZOLE 15 MG TAB.RAP.DR PO SCH (05:36)
[2018-01-09] MEDS: LEVOTHYROXINE SODIUM 0.05 MG TABLET PO SCH (05:36)
[2018-01-09 05:40] LABS: ANION GAP 9 (5-19)
[2018-01-09 05:41] LABS: CARBON DIOXIDE 41 mmol/L (22-30)
[2018-01-09] MEDS: IPRATROPIUM/ALBUTEROL 0.5-2.5 MG/3 ML AMPUL NEB PRN ×2 (08:04→20:12)
[2018-01-09] MEDS: ACETYLCYSTEINE 20% SOLN 800 MG/4 ML VIAL.NEB NEB SCH ×2 (08:04→20:12)
[2018-01-09] MEDS: BUDESONIDE/FORMOTEROL 80-4.5 MCG 60 PUFF/6.9 GM MDI IH SCH ×2 (10:03→22:29)
[2018-01-09] MEDS: TIOTROPIUM BROMIDE DPI 5 CAP/KIT (18 MCG/CAP) IH SCH (10:03)
[2018-01-09] MEDS: CHOLECALCIFEROL (D3) 1,000 UNIT TABLET PO SCH (10:04)
[2018-01-09] MEDS: GUAIFENESIN 600 MG TABLET.SA PO SCH ×2 (10:04→22:29)
[2018-01-09] MEDS: METOPROLOL SUCCINATE 25 MG TAB.SR.24H PO SCH ×2 (10:04→22:29)
[2018-01-09] MEDS: APIXABAN 5 MG TABLET PO SCH ×2 (10:04→17:11)
[2018-01-09] MEDS: CALCIUM CARBONATE 250 MG/VITAMIN D3 125 UNIT TABLET PO SCH (10:04)
[2018-01-09] MEDS: FUROSEMIDE INJ/PF 40 MG/4 ML SDV IV SCH (10:04)
[2018-01-09] MEDS: LEFLUNOMIDE 20 MG TABLET PO SCH (10:04)
[2018-01-09] MEDS: PREDNISONE 20 MG TABLET PO SCH ×3 (10:04→17:10)
[2018-01-09] MEDS: LEVOFLOXACIN 500 MG TABLET PO SCH (10:05)
[2018-01-09] MEDS: OMEGA-3 ACID ETHYL ESTERS 1 GM CAPSULE PO SCH ×2 (10:05→17:11)
[2018-01-09] MEDS: POTASSIUM CHLORIDE 10 MEQ TABLET.SA PO SCH ×2 (10:05→17:10)
[2018-01-09] MEDS: MULTIVITAMIN TABLET PO SCH (13:15)
[2018-01-09] MEDS: TAMSULOSIN HCL 0.4 MG CAP.SR.24H PO SCH (17:10)
--- NOTE | 2018-01-09 17:28 | PDOC PROGRESS REPORT ---
Subjective Progress Note for:: 01/09/18 Subjective:: Patient is breathing better. He is feeling close to his baseline. Still very weak. He is coughing up lots of phlegm. No fevers or chills. No abdominal pain chest pain nausea vomiting. Urinating well. Ambulating with his walker. Reason For Visit: ACUTE ON CHRONIC RESPIRATORY FAILURE, COPD Physical Exam Vital Signs: Temp Pulse Resp BP Pulse Ox 97.3 F 104 H 18 93/69 L 98 01/09/18 15:17 01/09/18 15:17 01/09/18 15:17 01/09/18 15:17 01/09/18 15:17 Intake & Output 01/08/18 01/09/18 01/10/18 06:59 06:59 06:59 Intake Total 265 1456 324 Output Total 1550 225 Balance -1285 1231 324 Weight 106.8 kg 106.3 kg General appearance: PRESENT: no acute distress, cooperative Head exam: PRESENT: atraumatic, normocephalic Eye exam: ABSENT: scleral icterus Mouth exam: PRESENT: moist, tongue midline Respiratory exam: PRESENT: prolonged expiratory phas, tachypnea, wheezes, other - Poor air movement. ABSENT: unlabored Cardiovascular exam: PRESENT: irregular rhythm GI/Abdominal exam: PRESENT: normal bowel sounds, soft. ABSENT: distended, guarding, tenderness Extremities exam: PRESENT: +1 edema Neurological exam: PRESENT: alert, awake, oriented to person, oriented to place , oriented to situation, CN II-XII grossly intact Psychiatric exam: PRESENT: appropriate affect Skin exam: PRESENT: dry, warm Results Laboratory Results: 01/09/18 04:57 01/09/18 04:57 01/09/18 01/09/18 04:57 04:57 WBC 7.7 RBC 3.24 L Hgb 10.4 L Hct 31.5 L MCV 97 MCH 32.2 MCHC 33.0 RDW 15.3 H Plt Count 185 Seg Neutrophils % 84.2 H Lymphocytes % 8.1 L Monocytes % 7.3 Eosinophils % 0.1 Basophils % 0.3 Absolute Neutrophils 6.5 Absolute Lymphocytes 0.6 Absolute Monocytes 0.6 Absolute Eosinophils 0.0 Absolute Basophils 0.0 Sodium 143.3 Potassium 4.1 Chloride 93 L Carbon Dioxide 41 H* Anion Gap 9 BUN 32 H Creatinine 0.93 Est GFR ( Amer) > 60 Est GFR (Non-Af Amer) > 60 Glucose 118 H Calcium 8.6 Total Bilirubin 0.4 AST 62 H ALT 48 Alkaline Phosphatase 63 Total Protein 6.1 L Albumin 3.3 L Impressions: Chest CT 01/07/18 00:00 IMPRESSION: COPD. Prior asbestos exposure. Stable areas of pulmonary fibrosis. No evidence of superimposed pneumonia. Chest X-Ray 01/08/18 06:00 IMPRESSION: No acute changes Assessment & Plan - Diagnosis (1) COPD exacerbation Is this a current diagnosis for this admission?: Yes Plan: He is improving from this perspective. He is still requiring BiPAP at night. Bicarb is improving. Dr. Almaraz is consulting and we appreciate the assistance. Continue current therapies eluding BiPAP tonight. (2) Atrial fibrillation Qualifiers: Atrial fibrillation type: chronic Qualified Code(s): I48.2 - Chronic atrial fibrillation Is this a current diagnosis for this admission?: Yes Plan: Stable, continue current medications. Monitor closely given severity of COPD. (3) Acute on chronic respiratory failure with hypoxia and hypercapnia Is this a current diagnosis for this admission?: Yes Plan: Patient is back down to his 3 L of nasal cannula oxygen when sitting. When he moves he gets dyspneic and needs an increased level of oxygen secondary to hypoxemia. Overall he is improving current therapies. - Time Time Spent with patient: 25-34 minutes Medications reviewed and adjusted accordingly: Yes Anticipated discharge: Home with Homehealth - Inpatient Certification Based on my medical assessment, after consideration of the patient's comorbidities, presenting symptoms, or acuity I expect that the services needed warrant INPATIENT care.: Yes I certify that my determination is in accordance with my understanding of Medicare's requirements for reasonable and necessary INPATIENT services [42 CFR 412.3e].: Yes Medical Necessity: Need for Nebulizer Therapy and Monitoring of Response, Risk of Complication if Not Cared For in Hospital
[2018-01-10 05:13] LABS: ABSOLUTE LYMPHOCYTES (AUTO) 0.5 10^3/uL (0.5-4.7); ABSOLUTE MONOCYTES (AUTO) 0.4 10^3/uL (0.1-1.4); ABSOLUTE NEUT (AUTO) 5.2 10^3/uL (1.7-8.2); BASOPHILS % (AUTO) 0.1 % (0-2); HEMATOCRIT 30.4 % (37.9-51.0); HEMOGLOBIN 10.1 g/dL (13.5-17.0); LYMPHOCYTES % (AUTO) 7.9 % (13-45); MEAN CORPUSCULAR HEMOGLOBIN 32.6 pg (27.0-33.4); MEAN CORPUSCULAR HGB CONC 33.3 g/dL (32.0-36.0); MEAN CORPUSCULAR VOLUME 98 fl (80-97); MONOCYTES % (AUTO) 7.1 % (3-13); PLATELET COUNT 181 10^3/uL (150-450); RED CELL DISTRIBUTION WIDTH 15.4 % (11.5-14.0); SEGMENTED NEUTROPHILS % (AUTO) 84.9 % (42-78); TOTAL CELLS COUNTED % (AUTO) 100 %; WHITE BLOOD COUNT 6.2 10^3/uL (4.0-10.5)
[2018-01-10] MEDS: LEVOTHYROXINE SODIUM 0.05 MG TABLET PO SCH (05:36)
[2018-01-10] MEDS: LANSOPRAZOLE 15 MG TAB.RAP.DR PO SCH (05:36)
[2018-01-10 05:56] LABS: ALANINE AMINOTRANSFERASE 56 U/L (21-72); ALBUMIN 3.3 g/dL (3.5-5.0); ALKALINE PHOSPHATASE 53 U/L (38-126); ASPARTATE AMINO TRANSFERASE 50 U/L (17-59); BILIRUBIN,DIRECT 0.3 mg/dL (0.0-0.4); BILIRUBIN,TOTAL 0.3 mg/dL (0.2-1.3); BLOOD UREA NITROGEN 35 mg/dL (7-20); CALCIUM 8.8 mg/dL (8.4-10.2); CHLORIDE 92 mmol/L (98-107); GLUCOSE 114 mg/dL (75-110); SODIUM 139.1 mmol/L (137-145)
[2018-01-10 06:15] LABS: ANION GAP 6 (5-19); CARBON DIOXIDE 41 mmol/L (22-30)
[2018-01-10] MEDS: IPRATROPIUM/ALBUTEROL 0.5-2.5 MG/3 ML AMPUL NEB PRN (08:13)
[2018-01-10] MEDS: ACETYLCYSTEINE 20% SOLN 800 MG/4 ML VIAL.NEB NEB SCH (08:14)
[2018-01-10] MEDS: CALCIUM CARBONATE 250 MG/VITAMIN D3 125 UNIT TABLET PO SCH (09:43)
[2018-01-10] MEDS: APIXABAN 5 MG TABLET PO SCH (09:43)
[2018-01-10] MEDS: LEVOFLOXACIN 500 MG TABLET PO SCH (09:43)
[2018-01-10] MEDS: OMEGA-3 ACID ETHYL ESTERS 1 GM CAPSULE PO SCH (09:43)
[2018-01-10] MEDS: LEFLUNOMIDE 20 MG TABLET PO SCH (09:44)
[2018-01-10] MEDS: CHOLECALCIFEROL (D3) 1,000 UNIT TABLET PO SCH (09:44)
[2018-01-10] MEDS: POTASSIUM CHLORIDE 10 MEQ TABLET.SA PO SCH (09:44)
[2018-01-10] MEDS: PREDNISONE 20 MG TABLET PO SCH ×2 (09:44→13:39)
[2018-01-10] MEDS: GUAIFENESIN 600 MG TABLET.SA PO SCH (09:44)
[2018-01-10] MEDS: TIOTROPIUM BROMIDE DPI 5 CAP/KIT (18 MCG/CAP) IH SCH (09:45)
[2018-01-10] MEDS: METOPROLOL SUCCINATE 25 MG TAB.SR.24H PO SCH (09:45)
[2018-01-10] MEDS: BUDESONIDE/FORMOTEROL 80-4.5 MCG 60 PUFF/6.9 GM MDI IH SCH (09:45)
[2018-01-10] MEDS ORDERED: FUROSEMIDE 40 MG TABLET PO SCH (10:00)
[2018-01-10] MEDS ORDERED: FUROSEMIDE 80 MG TABLET PO SCH (10:00)
[2018-01-10 12:45] VITALS: BP 104/80
[2018-01-10] MEDS: MULTIVITAMIN TABLET PO SCH (13:39)
--- NOTE | 2018-01-10 16:47 | PDOC DISCHARGE SUMMARY ---
General - Admit/Disc Date/PCP Admission Date/Primary Care Provider: 01/07/18 14:53 MINA FRANCO MD Discharge Date: 01/10/18 - Discharge Diagnosis (1) COPD exacerbation Is this a current diagnosis for this admission?: Yes Summary: Patient has improved to what he describes as his baseline. He is back to his baseline 3 L of nasal cannula oxygen. He has a CPAP at home that he uses routinely but he also tells me that his doctor has set him up for a BiPAP study. We discussed that he has needed the BiPAP every night here and it is helping him sleep more comfortably and feel better in the morning, and that he will not have that at home. He will use his CPAP and he knows to return to medical care if he worsens. Is being discharged with several more days of prednisone and Levaquin for COPD exacerbation. He is also discharged with Mucomyst nebulized per Dr. Almaraz's recommendation. (2) Atrial fibrillation Is this a current diagnosis for this admission?: Yes Summary: Rate controlled and stable, will discharge on his home apixaban and metoprolol succinate. (3) Acute on chronic respiratory failure with hypoxia and hypercapnia Is this a current diagnosis for this admission?: Yes Summary: Secondary to severe COPD exacerbation and heart failure exacerbation. See the sections for treatments. Patient is back to baseline for discharge. (4) Acute on chronic congestive heart failure Is this a current diagnosis for this admission?: Yes Summary: Patient was edematous and dyspneic. He was hypoxemic and hypercarbic. Elevated BNP. He was treated with IV Lasix and then transition to his home oral Lasix. Treatment proceeded without complication. (5) Chronic silicosis Is this a current diagnosis for this admission?: Yes Summary: Contributing to his acute respiratory failure. 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 Also has asbestosis. (6) Hypertension Is this a current diagnosis for this admission?: Yes Summary: Back on his home meds for discharge. (7) Hypothyroidism Is this a current diagnosis for this admission?: Yes Summary: Elevated TSH and depressed free T4. Patient was started on thyroid repletion and will be followed by his primary care doctor. - Additional Information Resuscitation Status: Do Not Intubate Discharge Diet: Cardiac, Other (Comments) Discharge Activity: Activity As Tolerated, Balance Activity w/Rest, Energy Conservation, Weigh Daily Prescriptions: Acetylcysteine [Mucomist 20% Soln 800 mg/4 mL] 600 mg NEB RTBID 30 Days #60 vial Guaifenesin [Mucinex Sr 600 mg Tablet.sa] 1,200 mg PO Q12 30 Days #60 tablet.sa Ipratropium/Albuterol Sulfate [Duoneb 3 ml Ampul] 3 ml NEB RTQ6HP PRN #30 vial.neb PRN Reason: Levofloxacin [Levaquin 500 mg Tablet] 500 mg PO DAILY 3 Days #3 tablet Levothyroxine Sodium [Synthroid 0.05 mg Tablet] 0.05 mg PO Q6AM 30 Days #30 tablet Prednisone [Deltasone 20 mg Tablet] 20 mg PO DAILY 3 Days #3 tablet Home Medications: Albuterol Sulfate [Proventil Hfa] 2 puff IH Q4HP PRN 01/07/18 Apixaban [Eliquis 5 mg Tablet] 5 mg PO BID 01/07/18 Budesonide/Formoterol Fumarate [Symbicort HFA 80-4.5 mcg Inhaler 6.9 gm] 2 puff IH Q12 01/07/18 Calcium Carbonate/Vitamin D3 [[place] 500-Vit D3 200 Caplet] 1 tab PO DAILY 01/07 Cholecalciferol (Vitamin D3) [Vitamin D3 1000 Unit Tablet] 1,000 unit PO DAILY 01/07/18 Furosemide [Lasix 40 mg Tablet] 80 mg PO DAILY 01/07/18 Leflunomide [Arava 20 mg Tablet] 20 mg PO DAILY 01/07/18 Metoprolol Succinate [Toprol Xl 25 mg Tab.sr] 25 mg PO Q12 01/07/18 Multivitamin with Iron [One Daily Multivitamin] 1 tab PO DAILY 01/07/18 [place]-3 Acid Ethyl Esters [Lovaza 1 gm Capsule] 1 gm PO BID 01/07/18 Omeprazole 20 mg PO DAILY 01/07/18 Potassium Chloride [Klor-Con 10 Meq Tablet.sa] 10 meq PO BID 01/07/18 Tamsulosin HCl [Flomax 0.4 mg Cap.sr] 0.4 mg PO DAILY 01/07/18 Tiotropium Nebo [Spiriva Handihaler 18 mcg/dose (30 Dose)] 1 cap IH DAILY Acetylcysteine [Mucomist 20% Soln 800 mg/4 mL] 600 mg NEB RTBID 30 Days #60 vial 01/10/18 Guaifenesin [Mucinex Sr 600 mg Tablet.sa] 1,200 mg PO Q12 30 Days #60 tablet.sa 01/10/18 Ipratropium/Albuterol Sulfate [Duoneb 3 ml Ampul] 3 ml NEB RTQ6HP PRN #30 vial.neb 01/10/18 Levofloxacin [Levaquin 500 mg Tablet] 500 mg PO DAILY 3 Days #3 tablet 01/10/18 Levothyroxine Sodium [Synthroid 0.05 mg Tablet] 0.05 mg PO Q6AM 30 Days #30 tablet 01/10/18 Prednisone [Deltasone 20 mg Tablet] 20 mg PO DAILY 3 Days #3 tablet 01/10/18 History of Present Illness History of Present Illness: GEORGIE CLARK is a 82 year old male patient with multiple comorbidities including CHF, COPD, hypertension, obesity, atrial fibrillation and history of pulmonary asbestosis. He presented with 4 day history of worsening shortness of precipitated slight exertion. Of note patient has long- standing chronic dyspnea and end-stage lung disease due to COPD and has been on oxygen and he uses CPAP machine during the day as needed and regularly at night. Despite using his home breathing treatment and oxygen patient continues to have worsening shortness of breath so he came to ER for further help. His echocardiogram which is done in July 2017 shows reduced ejection fraction of 35%. Patient denies any fever, chest pain but he has dry hacking cough. No nausea, vomiting, diarrhea or urinary complaints. No headache, dizziness or blurry vision. Hospital Course Hospital Course: See problem list Physical Exam Vital Signs: Temp Pulse Resp BP Pulse Ox 97.6 F 75 22 H 104/80 97 01/10/18 12:41 01/10/18 12:41 01/10/18 12:41 01/10/18 12:41 01/10/18 12:41 Intake & Output 01/09/18 01/10/18 01/11/18 06:59 06:59 06:59 Intake Total 1456 839 695 Output Total 225 Balance 1231 839 695 Weight 106.3 kg 102.2 kg General appearance: PRESENT: no acute distress, cooperative Head exam: PRESENT: atraumatic, normocephalic Eye exam: PRESENT: EOMI Mouth exam: PRESENT: moist, tongue midline Respiratory exam: PRESENT: decreased breath sounds, prolonged expiratory phas, unlabored. ABSENT: rales, tachypnea, wheezes Cardiovascular exam: PRESENT: irregular rhythm GI/Abdominal exam: PRESENT: normal bowel sounds, soft. ABSENT: distended, tenderness Extremities exam: PRESENT: pedal edema Musculoskeletal exam: PRESENT: normal inspection Neurological exam: PRESENT: alert, awake, oriented to person, oriented to place , oriented to situation Psychiatric exam: PRESENT: appropriate affect. ABSENT: anxious Skin exam: PRESENT: dry, warm Results Laboratory Results: 01/10/18 04:34 01/10/18 04:34 01/10/18 01/10/18 04:34 04:34 WBC 6.2 RBC 3.10 L Hgb 10.1 L Hct 30.4 L MCV 98 H MCH 32.6 MCHC 33.3 RDW 15.4 H Plt Count 181 Seg Neutrophils % 84.9 H Lymphocytes % 7.9 L Monocytes % 7.1 Eosinophils % 0.0 Basophils % 0.1 Absolute Neutrophils 5.2 Absolute Lymphocytes 0.5 Absolute Monocytes 0.4 Absolute Eosinophils 0.0 Absolute Basophils 0.0 Sodium 139.1 Potassium 4.0 Chloride 92 L Carbon Dioxide 41 H* Anion Gap 6 BUN 35 H Creatinine 0.96 Est GFR ( Amer) > 60 Est GFR (Non-Af Amer) > 60 Glucose 114 H Calcium 8.8 Total Bilirubin 0.3 AST 50 ALT 56 Alkaline Phosphatase 53 Total Protein 6.0 L Albumin 3.3 L Impressions: Chest CT 01/07/18 00:00 IMPRESSION: COPD. Prior asbestos exposure. Stable areas of pulmonary fibrosis. No evidence of superimposed pneumonia. Chest X-Ray 01/08/18 06:00 IMPRESSION: No acute changes Qualifiers - * PATIENT BEING DISCHARGED WITH ANY OF THE FOLLOWING DIAGNOSIS: Heart Failure HF Pt being discharged on ACEI for LVEF less than 40%?: Yes HF Pt being discharged on ARBS for LVEF less than 40%?: Yes HF Pt with Afib discharged with Warfarin?: No Reason(s) for not prescribing Warfarin:: Medical Contraindication - patient is on eliquis HF Pt discharged on evidence-based Beta Dottie:: Yes
--- NOTE | 2018-01-11 12:23 | PDOC PROGRESS REPORT ---
Subjective Progress Note for:: 01/09/18 Subjective:: A LITTLE BETTER EASIER TO COUGH OUT PHLEGM Reason For Visit: ACUTE ON CHRONIC RESPIRATORY FAILURE, COPD Physical Exam Vital Signs: Temp Pulse Resp BP Pulse Ox 98.5 F 53 L 19 105/86 H 94 01/09/18 11:28 01/09/18 11:28 01/09/18 11:28 01/09/18 11:28 01/09/18 11:28 Intake & Output 01/08/18 01/09/18 01/10/18 06:59 06:59 06:59 Intake Total 265 1456 324 Output Total 1550 225 Balance -1285 1231 324 Weight 106.8 kg 106.3 kg General appearance: PRESENT: no acute distress, cooperative, disheveled, obese Head exam: PRESENT: atraumatic, normocephalic Eye exam: PRESENT: conjunctiva pale, EOMI. ABSENT: nystagmus, periorbital swelling, scleral icterus Mouth exam: PRESENT: dry mucosa, neck supple, tongue midline Neck exam: ABSENT: carotid bruit, JVD, lymphadenopathy, thyromegaly, tracheal deviation, tracheostomy Respiratory exam: PRESENT: decreased breath sounds, prolonged expiratory phas, rales, rhonchi, unlabored. ABSENT: retraction, stridor, tachypnea Cardiovascular exam: PRESENT: RRR, +S1, +S2 Pulses: PRESENT: normal radial pulses GI/Abdominal exam: PRESENT: normal bowel sounds, soft Extremities exam: ABSENT: calf tenderness, clubbing, full ROM Musculoskeletal exam: PRESENT: ambulatory. ABSENT: deformity, dislocation Neurological exam: PRESENT: awake Psychiatric exam: PRESENT: normal mood Skin exam: PRESENT: dry, warm Results Laboratory Results: 01/09/18 04:57 01/09/18 04:57 01/09/18 01/09/18 04:57 04:57 WBC 7.7 RBC 3.24 L Hgb 10.4 L Hct 31.5 L MCV 97 MCH 32.2 MCHC 33.0 RDW 15.3 H Plt Count 185 Seg Neutrophils % 84.2 H Lymphocytes % 8.1 L Monocytes % 7.3 Eosinophils % 0.1 Basophils % 0.3 Absolute Neutrophils 6.5 Absolute Lymphocytes 0.6 Absolute Monocytes 0.6 Absolute Eosinophils 0.0 Absolute Basophils 0.0 Sodium 143.3 Potassium 4.1 Chloride 93 L Carbon Dioxide 41 H* Anion Gap 9 BUN 32 H Creatinine 0.93 Est GFR ( Amer) > 60 Est GFR (Non-Af Amer) > 60 Glucose 118 H Calcium 8.6 Total Bilirubin 0.4 AST 62 H ALT 48 Alkaline Phosphatase 63 Total Protein 6.1 L Albumin 3.3 L Impressions: Chest CT 01/07/18 00:00 IMPRESSION: COPD. Prior asbestos exposure. Stable areas of pulmonary fibrosis. No evidence of superimposed pneumonia. Chest X-Ray 01/08/18 06:00 IMPRESSION: No acute changes Assessment & Plan - Diagnosis (1) Acute and chronic respiratory failure Qualifiers: Respiratory failure complication: hypoxia Qualified Code(s): J96.21 - Acute and chronic respiratory failure with hypoxia Is this a current diagnosis for this admission?: Yes Plan: PATIENT NEEDS PRESCRIPTION 20% MUCOMYST HHN BID (2) Acute on chronic systolic congestive heart failure, NYHA class 3 Is this a current diagnosis for this admission?: Yes (3) Atrial fibrillation Qualifiers: Atrial fibrillation type: chronic Qualified Code(s): I48.2 - Chronic atrial fibrillation Is this a current diagnosis for this admission?: Yes Plan: stable at this time (4) COPD exacerbation Is this a current diagnosis for this admission?: Yes Plan: Chest physiotherapy mucolytic's long-acting beta agonist long-acting muscarinic agents will hold inhaled corticosteroids at this time.
== END 2018-01-10 14:21 | disposition home health service (06) | DRG 189 ==
LOC: ER 12:50 → EH 14:53 → 3W 17:30
PROVIDERS: ADMIT Internal Medicine; ATTEND Internal Medicine
PROC: 5A09457 Assistance with Respiratory Ventilation, 24-96 Consecutive Hours, Continuous Positive Airway Pressure (ICD-10-PCS; principal; 2018-01-07)
DX: J96.21 Acute and chronic respiratory failure with hypoxia (principal); I50.23 Acute on chronic systolic (congestive) heart failure; J44.1 Chronic obstructive pulmonary disease with (acute) exacerbation; I11.0 Hypertensive heart disease with heart failure; E66.9 Obesity, unspecified; J96.22 Acute and chronic respiratory failure with hypercapnia; R74.0 Nonspecific elevation of levels of transaminase and lactic acid dehydrogenase [LDH]; I48.2 Chronic atrial fibrillation; J62.8 Pneumoconiosis due to other dust containing silica; E03.9 Hypothyroidism, unspecified; Z68.31 Body mass index [BMI] 31.0-31.9, adult; Z85.118 Personal history of other malignant neoplasm of bronchus and lung; Z82.61 Family history of arthritis; Z82.49 Family history of ischemic heart disease and other diseases of the circulatory system; Z87.891 Personal history of nicotine dependence; Z88.6 Allergy status to analgesic agent; Z99.81 Dependence on supplemental oxygen; Z79.01 Long term (current) use of anticoagulants; Z85.828 Personal history of other malignant neoplasm of skin; M19.90 Unspecified osteoarthritis, unspecified site; F32.9 Major depressive disorder, single episode, unspecified; Z77.090 Contact with and (suspected) exposure to asbestos; Z87.09 Personal history of other diseases of the respiratory system; Z79.899 Other long term (current) drug therapy
CPT/HCPCS: 36415; 36600; 71045; 71250; 80053; 81001; 82550; 82553; 82803; 83735; 83880; 84100; 84439; 84443; 84484; 85025; 87040; 93005; 93010; 93306; 94660; 94667; 94668; 94799; 99291; J0696; J1644; J1940; J1956; J2920; J3490; J7512; J7620

== ENCOUNTER 2018-01-19 09:58 | Emergency (ER) | payer MEDICARE, BC ==
[2018-01-19 10:39] LABS: ABSOLUTE LYMPHOCYTES (AUTO) 0.7 10^3/uL (0.5-4.7); ABSOLUTE MONOCYTES (AUTO) 0.8 10^3/uL (0.1-1.4); ABSOLUTE NEUT (AUTO) 5.4 10^3/uL (1.7-8.2); BASOPHILS % (AUTO) 0.6 % (0-2); EOSINOPHILS % (AUTO) 0.3 % (0-6); HEMATOCRIT 34.5 % (37.9-51.0); HEMOGLOBIN 11.5 g/dL (13.5-17.0); LYMPHOCYTES % (AUTO) 9.4 % (13-45); MEAN CORPUSCULAR HEMOGLOBIN 33.2 pg (27.0-33.4); MEAN CORPUSCULAR HGB CONC 33.3 g/dL (32.0-36.0); MEAN CORPUSCULAR VOLUME 100 fl (80-97); MONOCYTES % (AUTO) 11.8 % (3-13); PLATELET COUNT 179 10^3/uL (150-450); RED BLOOD COUNT 3.46 10^6/uL (4.35-5.55); RED CELL DISTRIBUTION WIDTH 16.2 % (11.5-14.0); SEGMENTED NEUTROPHILS % (AUTO) 77.9 % (42-78); TOTAL CELLS COUNTED % (AUTO) 100 %; WHITE BLOOD COUNT 6.9 10^3/uL (4.0-10.5)
[2018-01-19 11:05] LABS: ALANINE AMINOTRANSFERASE 62 U/L (21-72); ALKALINE PHOSPHATASE 78 U/L (38-126); ASPARTATE AMINO TRANSFERASE 51 U/L (17-59); BILIRUBIN,DIRECT 0.5 mg/dL (0.0-0.4); BILIRUBIN,TOTAL 0.9 mg/dL (0.2-1.3); BLOOD UREA NITROGEN 23 mg/dL (7-20); CALCIUM 9.4 mg/dL (8.4-10.2); CHLORIDE 89 mmol/L (98-107); GLUCOSE 101 mg/dL (75-110); TOTAL PROTEIN 7.2 g/dL (6.3-8.2)
[2018-01-19 11:12] LABS: CREATINE KINASE MB 3.52 ng/mL (<4.55)
[2018-01-19 11:14] LABS: ANION GAP 9 (5-19)
--- NOTE | 2018-01-19 11:14 | RADIOLOGY REPORT (SQ) ---
EXAM DESCRIPTION: CHEST SINGLE VIEW COMPLETED DATE/TIME: 01/19/2018 10:59 am REASON FOR STUDY: Shortness of breath and low O2 sat. COMPARISON: 01/08/2018 EXAM PARAMETERS: NUMBER OF VIEWS: One view. TECHNIQUE: Single frontal radiographic view of the chest acquired. RADIATION DOSE: NA LIMITATIONS: None. FINDINGS: LUNGS AND PLEURA: Calcified pleural plaques. Chronic thickening the left pleura. Chronic interstitial lung changes. No acute pulmonary infiltrate or pleural effusion. MEDIASTINUM AND HILAR STRUCTURES: No masses. Contour normal. HEART AND VASCULAR STRUCTURES: Heart size is borderline. No evidence failure. BONES: No acute findings. HARDWARE: None in the chest. OTHER: No other significant finding. IMPRESSION: Stable appearance of the chest. TECHNICAL DOCUMENTATION: JOB ID: [id number] [employer]- All Rights Reserved Reading location - IP/workstation name: [email or web address]
[2018-01-19 11:15] LABS: CARBON DIOXIDE 44 mmol/L (22-30)
[2018-01-19 11:16] LABS: TROPONIN I 0.065 ng/mL
[2018-01-19 11:39] LABS: VENOUS BLOOD BASE EXCESS 17.2 mmol/L; VENOUS BLOOD HCO3 45.9 mmol/L (20-32); VENOUS BLOOD PH 7.37 (7.30-7.42)
[2018-01-19 11:43] LABS: VENOUS BLOOD PCO2 81.9 mmHg (35-63)
[2018-01-19 11:52] LABS: APPEARANCE,URINE CLEAR; BILIRUBIN,URINE NEGATIVE (NEGATIVE); COLOR,URINE YELLOW; GLUCOSE, URINE NEGATIVE (NEGATIVE); KETONES,URINE NEGATIVE (NEGATIVE); LEUKOCYTE ESTERASE,URINE NEGATIVE (NEGATIVE); NITRITE,URINE NEGATIVE (NEGATIVE); PROTEIN,URINE NEGATIVE (NEGATIVE); UROBILINOGEN,URINE NEGATIVE mg/dL (<2.0)
--- NOTE | 2018-01-19 13:41 | ER Document Report ---
ED General - General Chief Complaint: Urinary Problem Stated Complaint: LEG SWELLING Time Seen by Provider: 01/19/18 10:21 Notes: Patient is complaining of inability to urinate for several days. He has not had this problem before, although he does have a history of prostate condition and is on Flomax. He was recently in the hospital here and discharged about 10 days ago for acute and chronic respiratory failure. He has been at home for about a week until he developed difficulty urinating this past weekend. Because his bladder has been distended and painful, he says he has been "struggling" to get his breath. He is able to passing dribbles of urine periodically, but at other times not able to urinate at all. He has chronic congestive heart failure, COPD, and a large pleural effusion on his chest x-ray. He is on home oxygen all the time. Denies any chest pains. No fevers. TRAVEL OUTSIDE OF THE [place] IN LAST 30 DAYS: No - Related Data Allergies/Adverse Reactions: No Known Allergies Allergy (Verified 01/07/18 16:21) Past Medical History - Social History Smoking Status: Former Smoker Chew tobacco use (# tins/day): No Frequency of alcohol use: None Drug Abuse: None Family History: Reviewed & Not Pertinent Patient has suicidal ideation: No Patient has homicidal ideation: No - Past Medical History Cardiac Medical History: Reports: Hx Atrial Fibrillation, Hx Congestive Heart Failure, Hx Hypertension Pulmonary Medical History: Reports: Hx Asthma, Hx COPD Malignancy Medical History: Reports Hx Lung Cancer - in Remission Musculoskeltal Medical History: Reports Hx Arthritis Psychiatric Medical History: Reports: Hx Depression Past Surgical History: Reports: Hx Abdominal Surgery - abd hernia, Hx Orthopedic Surgery - rotator cuff - Immunizations Hx Pneumococcal Vaccination: 08/11/10 Review of Systems - Review of Systems Notes: REVIEW OF SYSTEMS: CONSTITUTIONAL : Denies fever. EENT: Denies eye, ear, nose or mouth or throat pain or other symptoms. CARDIOVASCULAR: Denies chest pain. History of atrial fibrillation. RESPIRATORY: Chronic cough and chest congestion and shortness of breath. History of chronic respiratory failure GASTROINTESTINAL: denies vomiting or diarrhea.. GENITOURINARY: See HPI. MUSCULOSKELETAL: Denies back or neck pain. Denies joint pain or swelling. SKIN: Denies rash or skin lesions. NEUROLOGICAL: Denies LOC or altered mental status. Denies headache. Denies sensory loss or motor deficits. ALL OTHER SYSTEMS REVIEWED AND NEGATIVE. Physical Exam - Vital signs Vitals: Temp BP 97.8 F 96/84 L 01/19/18 10:07 01/19/18 10:07 Interpretation: Normal - On monitor at bedside, O2 sat in the low 90s, other vital signs normal. - Notes Notes: PHYSICAL EXAMINATION: GENERAL: Anxious, complains of lower abdominal discomfort. HEAD: Atraumatic, normocephalic. EYES: Pupils equal round and reactive to light, extraocular movements intact. ENT: oropharynx clear without exudates. Moist mucous membranes. NECK: Normal range of motion, supple. LUNGS: Breath sounds clear and equal bilaterally. Some decrease in breath sounds on the left side. HEART: Irregularly irregular without murmurs. ABDOMEN: Soft, tender suprapubic region. No guarding or rebound. No masses. BACK: No tenderness throughout entire back. EXTREMITIES: Normal range of motion without pain. Negative Homans bilaterally. NEUROLOGICAL: Normal speech, normal gait. Normal sensory, motor, and reflex exams. Awake, alert, and oriented x3. Cranial nerves normal. PSYCH: Normal mood, normal affect. SKIN: Warm, dry, no rashes. Course - Re-evaluation Re-evalutation: 01/19/18 14:[address] Franco, this patient's primary care provider, and we are in agreement that we will going to recommend to the patient that he keep his catheter in on discharge and follow-up with Dr. Franco. He had an appointment to be seen there this afternoon, but his is cancel that appointment because of what has been happening with the patient's urine situation. Patient is complaining of being constipated which could cause some of his problems with urinary retention. I am giving him discharge instructions on how to go about managing his constipation. - Vital Signs Vital signs: Temp Pulse Resp BP Pulse Ox 97.8 F 14 108/74 01/19/18 10:07 01/19/18 11:01 01/19/18 11:01 - Laboratory Result Diagrams: 01/19/18 10:10 01/19/18 10:10 Laboratory results interpreted by me: 01/19/18 01/19/18 01/19/18 10:10 10:10 10:10 RBC 3.46 L Hgb 11.5 L Hct 34.5 L MCV 100 H RDW 16.2 H Lymphocytes % 9.4 L VBG pCO2 81.9 H* VBG HCO3 45.9 H Chloride 89 L Carbon Dioxide 44 H* BUN 23 H Direct Bilirubin 0.5 H 01/19/18 14:41 Labs show hypercapnia and CO2 retention. However, the values are not significantly different from those that he had while in the hospital 10 days ago and at the time of his discharge home about 10 days ago. Patient says his primary concern was his painful bladder that was causing him to have difficulty breathing. Once the Root catheter was in and 700 mL of urine removed, the patient says that his breathing improved significantly and he feels back to normal now. - Diagnostic Test Radiology results interpreted by me: 01/19/18 13:43 Chest x-ray is unchanged from previous films. He has a large effusion/ infiltrate in the left lung which has been present on previous x-rays and does not show any significant change. - EKG Interpretation by Me Rate: Normal Rhythm: A.Fib Discharge - Discharge Clinical Impression: Urinary retention, Prostatism, Chronic respiratory failure Condition: Stable Disposition: HOME, SELF-CARE Additional Instructions: Urinary Retention Urinary retention is inability to empty the bladder. It can result from a urine infection, or from mechanical problems such as an enlarged prostate gland or swelling of the urethra. Drugs or alcohol can also lead to urine retention. The condition is usually treated by passage of a catheter. If the physician thinks the problem will continue, the catheter may be left in place for a few days. Sometimes drugs are used to stimulate the bladder if the physician feels that inadequate bladder contraction is the cause. If the condition leading to the retention is a chronic one, such as an enlarged prostate, you will be referred to a specialist for further care. Call the physician or return if you develop fever, flank or back pain, pain on urination, or recurrent difficulty passing the urine. Root Catheter Care Tube Position: Keep the catheter connected to the drainage tubing at all times. Avoid pulling on the catheter. Keep the drainage tube taped to the mid- thigh, on top of your leg (not underneath it). Be sure there are no kinks or loops in the tube. Keep the drainage bag below the bladder. When in bed, the drainage bag should hang below the abdomen but should not lie on the floor. The drainage bag has hooks at the top so it can be hung on a chair or bed. Daily Cleaning: Wash your hands with soap and water before and after caring for your catheter. Twice a day, clean yourself where the catheter goes into the urethra. Use a warm, soapy wash cloth to clean around the urethral opening and the first few inches of the catheter. Females should wash from front to back to decrease the risk of infection from fecal material. After washing with soap, rinse the area with water. Do not put powder around the catheter. Apply ointment only if instructed by your doctor or nurse. Follow up if you develop fever or chills, flank or abdominal pain, blood in the urine, or if urine is not draining into the catheter. CONSTIPATION: Constipation is a common problem. It is especially likely as you get older. Constipation is a common cause of abdominal pain, but sometimes causes no symptoms at all. Causes of constipation include certain medications, dehydration, diets, inactivity, and low-fiber intake. Rarely, it can be a symptom of underlying disease. The physician has evaluated you for this. Avoid constipation by eating a diet high in fiber, fruits, and vegetables. Drink plenty of liquids. Get regular exercise. If possible, avoid constipating medicines like narcotic pain medication. Some vitamin tablets can cause constipation. Stool softeners may be needed for difficult cases. An excellent stool softener is Konsyl which is available at [employer] [employer] [facility]. Just add a teaspoon to a glass of pineapple or orange juice daily or twice a day if needed. Laxatives are useful for occasional constipation. You should use them only when necessary. Too-frequent use can make your bowels dependent on them. Some over the counter laxatives available without prescription are: Milk of Magnesia, 1-2 tablespoons twice a day Dulcolax, 5 mg pill or 10 mg suppository. Citrate of Magnesia, 4-5 ounces a day for a day or two For acute constipation, Fleet's Enemas and Dulcolax suppositories are helpful. Chronic, detention use of laxatives or enemas is not a good idea. Your bowel may become dependant on them. You do not need to have a bowel movement every day. Many people do fine with a bowel movement every three or four days. You should call your doctor or return for re-evaluation if you pass blood in the stool, or if you develop fever or increasing abdominal pain. BULK LAXATIVES: Bulk laxatives make the stool softer and bulkier. They're useful for preventing constipation. You can choose between psyllium, methylcellulose, and polycarbophil. They are available without a prescription. Psyllium brand names include Konsyl, Metamucil, Perdiem, Effer-Syllium and Hydrocil. It's available as powder, flavored drink powder, or chewable. The usual dose of psyllium powder is one heaping teaspoon in water each morning, increasing to twice a day if needed. [place] juice can disguise the slightly grainy texture. Methylcellulose is marketed as Citrucel and other brands. The average dose is two grams in a cup of water one to three times a day. Polycarbophil is marketed as Fiber-Con. Take two tablets with a cup of water one to three times a day. FOLLOW-UP CARE: If you have been referred to a physician for follow-up care, call the physician s office for an appointment as you were instructed or within the next two days. If you experience worsening or a significant change in your symptoms, notify the physician immediately or return to the Emergency Department at any time for re-evaluation. Follow-up with your primary care provider, Dr. Franco. Referrals: MINA FRANCO MD [Primary Care Provider] - Follow up as needed
[2018-01-19 14:47] VITALS: BP 110/78
--- NOTE | 2018-01-19 18:22 | EKG REPORT ---
SEVERITY:- ABNORMAL ECG - ATRIAL FIBRILLATION, V-RATE 71-125 PROBABLE INFERIOR INFARCT, AGE INDETERMINATE BORDERLINE R WAVE PROGRESSION, ANTERIOR LEADS BORDERLINE PROLONGED QT INTERVAL : Confirmed by: Porfirio Magaña MD 19-Jan-2018 18:21:41
== END 2018-01-19 14:47 | disposition home or self-care (01) ==
LOC: ER 09:58
DX: N40.0 Benign prostatic hyperplasia without lower urinary tract symptoms (principal); J96.10 Chronic respiratory failure, unspecified whether with hypoxia or hypercapnia; R33.9 Retention of urine, unspecified; R39.198 Other difficulties with micturition; M79.89 Other specified soft tissue disorders; Z79.899 Other long term (current) drug therapy; Z99.81 Dependence on supplemental oxygen; Z87.891 Personal history of nicotine dependence; I50.9 Heart failure, unspecified; J44.9 Chronic obstructive pulmonary disease, unspecified; J90 Pleural effusion, not elsewhere classified; I10 Essential (primary) hypertension
CPT/HCPCS: 36415; 51702; 71045; 80053; 81001; 82553; 82803; 83605; 84484; 85025; 87040; 87086; 93005; 93010; 99284